=== PATIENT | female | born 1940 | race Caucasian/White ===

== ENCOUNTER 2020-05-10 16:47 | Inpatient (IN) | payer MEDICARE ==
[2020-05-10] MEDS ORDERED: DEXAMETHASONE SOD PHOSPHATE 10 MG/ML 1 ML VIAL IV STA (17:12)
[2020-05-10] MEDS ORDERED: ACETAMINOPHEN TAB 325 MG TAB PO STA (17:12)
[2020-05-10] MEDS ORDERED: IPRATROPIUM-ALBUTEROL 3 ML NEB INHALATION STA ×2 (17:12→17:54)
--- NOTE | 2020-05-10 17:22 | ED ---
SOB HPI - General Chief Complaint: Shortness of Breath Stated Complaint: Cough/chills/SOB/Dizzy Time Seen by Provider: 05/10/20 16:59 Source: patient Mode of arrival: wheelchair Limitations: no limitations - History of Present Illness Initial Comments: 80-year-old female patient presents to the emergency department today for evaluation of cough, shortness of breath, fever. Patient states that she started getting sick on Thanksgiving about 7 days ago. States that she has had clear sputum production. States her cough is worsening and she is feeling more short of breath today. Denies any chest pain. States she has had several episodes of diarrhea denies any nausea or vomiting. States she has been taking cough syrup. States that she does have a history of COPD and does do breathing treatments but they're making her feel dizzy today. Patient denies any recent rash, abdominal pain, back pain, numbness, tingling, dizziness, weakness, hematuria, dysuria, urinary urgency, urinary frequency, headache, visual changes, or any other complaints. - Related Data Home Medications Medication Instructions Recorded Confirmed Furosemide [Lasix] 40 mg PO DAILY 11/30/15 05/10/20 Lansoprazole 30 mg PO DAILY 11/30/15 05/10/20 Potassium Chloride [Klor-Con 20] 20 meq PO BID 11/30/15 05/10/20 traMADol HCL/ACETAMINOPHEN 1 tab PO QAM 11/30/15 05/10/20 [Ultracet 37.5-325] Aspirin [Adult Low Dose Aspirin EC] 81 mg PO DAILY 05/10/20 05/10/20 Cholecalciferol [Vitamin D3 (25 1,000 unit PO DAILY 05/10/20 05/10/20 Mcg = 1000 Iu)] Meloxicam [Mobic] 7.5 mg PO DAILY 05/10/20 05/10/20 Metoprolol Succinate [Toprol XL] 75 mg PO DAILY 05/10/20 05/10/20 Multivitamins, Thera [Multivitamin 1 tab PO DAILY 05/10/20 05/10/20 (formulary)] traMADol-ACETAMINOP 37.5-325MG 0.5 mg PO HS 05/10/20 05/10/20 [Ultracet] Allergies Allergy/AdvReac Type Severity Reaction Status Date / Time KAREN Inhibitors Allergy Unknown Verified 05/10/20 17:45 Penicillins Allergy Rash/Hives Verified 05/10/20 17:45 Sulfa (Sulfonamide Allergy Rash/Hives Verified 05/10/20 17:45 Antibiotics) Review of Systems ROS Statement: Those systems with pertinent positive or pertinent negative responses have been documented in the HPI. ROS Other: All systems not noted in ROS Statement are negative. Past Medical History Past Medical History: Atrial Fibrillation, Hypertension, Sleep Apnea/CPAP/BIPAP Additional Past Medical History / Comment(s): Guillian [place] AFTER 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 Past Anesthesia/Blood Transfusion Reactions: No Reported Reaction Past Psychological History: Anxiety Smoking Status: Former smoker Past Alcohol Use History: None Reported Past Drug Use History: None Reported - Past Family History Mother Family Medical History: Dementia Father Family Medical History: Myocardial Infarction ([place]) General Exam Limitations: no limitations General appearance: alert, in no apparent distress, other (Physical well- developed, well-nourished elderly female patient in mild respiratory distress. Vital signs upon presentation are temperature 100.7F oral, pulse 62, respirations 23, blood pressure 109/60, pulse ox 94% on room air.) ENT exam: Present: normal exam, normal oropharynx, mucous membranes moist Neck exam: Present: normal inspection. Absent: tenderness, meningismus, lymphadenopathy Respiratory exam: Present: respiratory distress. Absent: normal lung sounds bilaterally, wheezes, rales, rhonchi, stridor Cardiovascular Exam: Present: regular rate, normal rhythm, normal heart sounds. Absent: systolic murmur, diastolic murmur, rubs, gallop, clicks GI/Abdominal exam: Present: soft, normal bowel sounds. Absent: distended, tenderness, guarding, rebound, rigid Neurological exam: Present: alert, oriented X3, CN II-XII intact Psychiatric exam: Present: normal affect, normal mood Skin exam: Present: warm, dry, intact, normal color. Absent: rash Course Vital Signs 05/10/20 05/10/20 05/10/20 16:51 17:10 18:38 Temperature 100.7 F H 98.9 F Pulse Rate 62 91 Respiratory 23 20 Rate Blood Pressure 109/60 O2 Sat by Pulse 94 L 97 95 Oximetry 05/10/20 20:00 Temperature Pulse Rate 70 Respiratory 18 Rate Blood Pressure 124/78 O2 Sat by Pulse 96 Oximetry Medical Decision Making - Medical Decision Making 80-year-old female patient presents to the emergency department today for evaluation of cough, shortness of breath, and weakness that started on Thanksgiving. Physical examination did reveal mild wheezing noted in the history lung shi. Labs reviewed and did reveal decreased white blood cell count at 3.4, low lymphocytes at 0.5, d-dimer 1.03, sodium 130. Lactic acid is negative. CRP is 38. Urinalysis shows a cloudy appearance with 1+ protein, 1+ glucose, small leukocyte esterase, 12 squamous epithelial cells, rare bacteria. She did test positive for COVID-19. Patient did have decreased oxygen saturatio ns between 90-94% on arrival. She did have improvement of symptoms with administration of oxygen. We will admit to the hospital for IV dexamethasone and further monitoring. Patient is agreeable to this plan. - Lab Data Result diagrams: 05/10/20 17:32 05/10/20 17:32 Lab Results 05/10/20 05/10/20 05/10/20 Range/Units 17:32 17:32 17:32 WBC 3.4 L (3.8-10.6) k/uL RBC 4.80 (3.80-5.40) m/uL Hgb 15.2 (11.4-16.0) gm/dL Hct 42.8 (34.0-46.0) % MCV 89.3 (80.0-100.0) fL MCH 31.8 (25.0-35.0) pg MCHC 35.6 (31.0-37.0) g/dL RDW 13.3 (11.5-15.5) % Plt Count 169 (150-450) k/uL MPV 6.8 Neutrophils % 75 % Lymphocytes % 16 % Monocytes % 6 % Eosinophils % 1 % Basophils % 1 % Neutrophils # 2.5 (1.3-7.7) k/uL Lymphocytes # 0.5 L (1.0-4.8) k/uL Monocytes # 0.2 (0-1.0) k/uL Eosinophils # 0.0 (0-0.7) k/uL Basophils # 0.1 (0-0.2) k/uL PT 10.2 (9.0-12.0) sec INR 1.0 (<1.2) APTT 25.2 (22.0-30.0) sec D-Dimer (<0.60) mg/L FEU Sodium 130 L (137-145) mmol/L Potassium 4.4 (3.5-5.1) mmol/L Chloride 99 (98-107) mmol/L Carbon Dioxide 23 (22-30) mmol/L Anion Gap 8 mmol/L BUN 12 (7-17) mg/dL Creatinine 0.59 (0.52-1.04) mg/dL Est GFR (CKD-EPI)AfAm >90 (>60 ml/min/1.73 sqM) Est GFR (CKD-EPI)NonAf 86 (>60 ml/min/1.73 sqM) Glucose 112 H (74-99) mg/dL Plasma Lactic Acid [place] (0.7-2.0) mmol/L Calcium 9.3 (8.4-10.2) mg/dL Magnesium 1.7 (1.6-2.3) mg/dL Total Bilirubin 0.9 (0.2-1.3) mg/dL AST 47 H (14-36) U/L ALT 23 (4-34) U/L Alkaline Phosphatase 60 (38-126) U/L C-Reactive Protein (<10.0) mg/L Total Protein 7.1 (6.3-8.2) g/dL Albumin 4.1 (3.5-5.0) g/dL Urine Color Urine Appearance (Clear) Urine pH (5.0-8.0) Ur Specific [place] (1.001-1.035) Urine Protein (Negative) Urine Glucose (UA) (Negative) Urine Ketones (Negative) Urine Blood (Negative) Urine Nitrite (Negative) Urine Bilirubin (Negative) Urine Urobilinogen (<2.0) mg/dL Ur Leukocyte Esterase (Negative) Urine RBC (0-5) /hpf Urine WBC (0-5) /hpf Ur Squamous Epith Cells (0-4) /hpf Urine Bacteria (None) /hpf Hyaline Casts (0-2) /lpf Urine Mucus (None) /hpf Coronavirus (PCR) (Not Detectd) 05/10/20 05/10/20 05/10/20 Range/Units 17:32 17:32 18:43 WBC (3.8-10.6) k/uL RBC (3.80-5.40) m/uL Hgb (11.4-16.0) gm/dL Hct (34.0-46.0) % MCV (80.0-100.0) fL MCH (25.0-35.0) pg MCHC (31.0-37.0) g/dL RDW (11.5-15.5) % Plt Count (150-450) k/uL MPV Neutrophils % % Lymphocytes % % Monocytes % % Eosinophils % % Basophils % % Neutrophils # (1.3-7.7) k/uL Lymphocytes # (1.0-4.8) k/uL Monocytes # (0-1.0) k/uL Eosinophils # (0-0.7) k/uL Basophils # (0-0.2) k/uL PT (9.0-12.0) sec INR (<1.2) APTT (22.0-30.0) sec D-Dimer (<0.60) mg/L FEU Sodium (137-145) mmol/L Potassium (3.5-5.1) mmol/L Chloride (98-107) mmol/L Carbon Dioxide (22-30) mmol/L Anion Gap mmol/L BUN (7-17) mg/dL Creatinine (0.52-1.04) mg/dL Est GFR (CKD-EPI)AfAm (>60 ml/min/1.73 sqM) Est GFR (CKD-EPI)NonAf (>60 ml/min/1.73 sqM) Glucose (74-99) mg/dL Plasma Lactic Acid [place] 1.1 (0.7-2.0) mmol/L Calcium (8.4-10.2) mg/dL Magnesium (1.6-2.3) mg/dL Total Bilirubin (0.2-1.3) mg/dL AST (14-36) U/L ALT (4-34) U/L Alkaline Phosphatase (38-126) U/L C-Reactive Protein 38.5 H (<10.0) mg/L Total Protein (6.3-8.2) g/dL Albumin (3.5-5.0) g/dL Urine Color Yellow Urine Appearance Cloudy H (Clear) Urine pH 6.5 (5.0-8.0) Ur Specific [place] 1.022 (1.001-1.035) Urine Protein 1+ H (Negative) Urine Glucose (UA) Negative (Negative) Urine Ketones 1+ H (Negative) Urine Blood Negative (Negative) Urine Nitrite Negative (Negative) Urine Bilirubin Negative (Negative) Urine Urobilinogen <2.0 (<2.0) mg/dL Ur Leukocyte Esterase Small H (Negative) Urine RBC 3 (0-5) /hpf Urine WBC 5 (0-5) /hpf Ur Squamous Epith Cells 12 H (0-4) /hpf Urine Bacteria Rare H (None) /hpf Hyaline Casts 10 H (0-2) /lpf Urine Mucus Few H (None) /hpf Coronavirus (PCR) (Not Detectd) 05/10/20 05/10/20 Range/Units 18:43 20:18 WBC (3.8-10.6) k/uL RBC (3.80-5.40) m/uL Hgb (11.4-16.0) gm/dL Hct (34.0-46.0) % MCV (80.0-100.0) fL MCH (25.0-35.0) pg MCHC (31.0-37.0) g/dL RDW (11.5-15.5) % Plt Count (150-450) k/uL MPV Neutrophils % % Lymphocytes % % Monocytes % % Eosinophils % % Basophils % % Neutrophils # (1.3-7.7) k/uL Lymphocytes # (1.0-4.8) k/uL Monocytes # (0-1.0) k/uL Eosinophils # (0-0.7) k/uL Basophils # (0-0.2) k/uL PT (9.0-12.0) sec INR (<1.2) APTT (22.0-30.0) sec D-Dimer 1.03 H (<0.60) mg/L FEU Sodium (137-145) mmol/L Potassium (3.5-5.1) mmol/L Chloride (98-107) mmol/L Carbon Dioxide (22-30) mmol/L Anion Gap mmol/L BUN (7-17) mg/dL Creatinine (0.52-1.04) mg/dL Est GFR (CKD-EPI)AfAm (>60 ml/min/1.73 sqM) Est GFR (CKD-EPI)NonAf (>60 ml/min/1.73 sqM) Glucose (74-99) mg/dL Plasma Lactic Acid [place] (0.7-2.0) mmol/L Calcium (8.4-10.2) mg/dL Magnesium (1.6-2.3) mg/dL Total Bilirubin (0.2-1.3) mg/dL AST (14-36) U/L ALT (4-34) U/L Alkaline Phosphatase (38-126) U/L C-Reactive Protein (<10.0) mg/L Total Protein (6.3-8.2) g/dL Albumin (3.5-5.0) g/dL Urine Color Urine Appearance (Clear) Urine pH (5.0-8.0) Ur Specific [place] (1.001-1.035) Urine Protein (Negative) Urine Glucose (UA) (Negative) Urine Ketones (Negative) Urine Blood (Negative) Urine Nitrite (Negative) Urine Bilirubin (Negative) Urine Urobilinogen (<2.0) mg/dL Ur Leukocyte Esterase (Negative) Urine RBC (0-5) /hpf Urine WBC (0-5) /hpf Ur Squamous Epith Cells (0-4) /hpf Urine Bacteria (None) /hpf Hyaline Casts (0-2) /lpf Urine Mucus (None) /hpf Coronavirus (PCR) Detected A (Not Detectd) - EKG Data -: EKG Interpreted by Me EKG Comments: EKG obtained at 1714 shows A. fib with ventricular rate of 80, QRS duration 86, QT 374, QTC 431. No evidence of ST elevation or depression. - Radiology Data Radiology results: report reviewed, image reviewed One view x-ray of the chest is obtained. Report reviewed in its entirety. Impression by Dr. Beverly shows increased pulmonary interstitial density compared to old exam. No obvious heart failure. Heart is increased lately compared to old exam Disposition Clinical Impression: COVID-19, Dyspnea Disposition: ADMITTED IP TO THIS [facility] Condition: Serious Referrals: Denisha Vale MD [Primary Care Provider] - 1-2 days Decision to Admit Reason: Admit from EC Decision Date: 05/10/20 Decision Time: 20:57
[2020-05-10] MEDS ORDERED: ALBUTEROL HFA INHALER INHALATION STA (17:55)
[2020-05-10 17:59] LABS: Basophils # (A) 0.1 k/uL (0-0.2); Basophils % (A) 1 %; Eosinophils % (A) 1 %; HCT 42.8 % (34.0-46.0); HGB 15.2 gm/dL (11.4-16.0); Lymphocytes # (A) 0.5 k/uL (1.0-4.8); Lymphocytes % (A) 16 %; MCH 31.8 pg (25.0-35.0); MCHC 35.6 g/dL (31.0-37.0); MCV 89.3 fL (80.0-100.0); Mean Platelet Volume 6.8; Monocytes # (A) 0.2 k/uL (0-1.0); Monocytes % (A) 6 %; Neutrophils # (A) 2.5 k/uL (1.3-7.7); Neutrophils % (A) 75 %; Platelet Count 169 k/uL (150-450); RDW 13.3 % (11.5-15.5); WBC 3.4 k/uL (3.8-10.6)
--- NOTE | 2020-05-10 18:09 | XR ---
EXAMINATION TYPE: XR chest 1V portable DATE OF EXAM: 05/10/2020 COMPARISON: 12/05/2015 heart is enlarged. There is no heart failure. There is coarsening of the interstitial markings at the mid and lower lung shi. There is left shoulder prosthesis. There is no pleural effusion. There ar e chest leads. IMPRESSION: Increased pulmonary interstitial density in the lower lobes compared to old exam. No obvious heart fa ilure. Heart is increased slightly compared to old exam.
[2020-05-10 18:14] LABS: ALT 23 U/L (4-34); AST 47 U/L (14-36); African American GFR (CKD) >90 (>60 ml/min/1.73 sqM); Albumin 4.1 g/dL (3.5-5.0); Alkaline Phosphatase 60 U/L (38-126); Anion Gap 8 mmol/L; Blood Urea Nitrogen 12 mg/dL (7-17); Calcium 9.3 mg/dL (8.4-10.2); Carbon Dioxide 23 mmol/L (22-30); Chloride 99 mmol/L (98-107); Glucose 112 mg/dL (74-99); Magnesium 1.7 mg/dL (1.6-2.3); Non-African American GFR(CKD) 86 (>60 ml/min/1.73 sqM); Potassium 4.4 mmol/L (3.5-5.1); Sodium 130 mmol/L (137-145); Total Bilirubin 0.9 mg/dL (0.2-1.3); Total Protein 7.1 g/dL (6.3-8.2)
[2020-05-10 18:21] LABS: Partial Thromboplastin Time 25.2 sec (22.0-30.0); Prothrombin Time 10.2 sec (9.0-12.0)
[2020-05-10 19:23] LABS: Appearance,Urine Cloudy (Clear); Bacteria,Urine Rare /hpf; Bilirubin,Urine Negative (Negative); Blood,Urine Negative (Negative); Color,Urine Yellow; Glucose,Urine (UA) Negative (Negative); Hyaline Casts,Urine 10 /lpf (0-2); Ketones,Urine 1+ (Negative); Leukocyte Esterase,Urine Small (Negative); Mucus,Urine Few /hpf; Nitrite,Urine Negative (Negative); PH, Urine 6.5 (5.0-8.0); Protein,Urine 1+ (Negative); RBC,Urine 3 /hpf (0-5); Specific Gravity,Urine 1.022 (1.001-1.035); Squamous Epithelial Cell,Urine 12 /hpf (0-4); Urobilinogen,Urine <2.0 mg/dL (<2.0); WBC,Urine 5 /hpf (0-5)
[2020-05-10] MEDS ORDERED: ACETAMINOPHEN TAB 325 MG TAB PO PRN (20:52)
[2020-05-10] MEDS ORDERED: NALOXONE 0.4 MG/ML 1 ML VIAL IV PRN (20:52)
[2020-05-10] MEDS ORDERED: ALBUTEROL HFA INHALER INHALATION PRN (20:56)
[2020-05-11 06:18] LABS: Ferritin 422.3 ng/mL (10.0-291.0)
[2020-05-11] MEDS: ENOXAPARIN 40 MG/0.4 ML SYRINGE SQ SCH (09:14)
[2020-05-11] MEDS: DEXAMETHASONE SOD PHOSPHATE 10 MG/ML 1 ML VIAL IV SCH (09:14)
[2020-05-11] MEDS: ALBUTEROL HFA INHALER INHALATION SCH ×3 (09:35→20:04)
--- NOTE | 2020-05-11 14:49 | P.HPIM ---
History of Present Illness H&P Date: 05/11/20 Opal Howard, is an 80-year-old female patient of Dr. Vale, who presented to [facility] emergency room, with a chief complaint of fever cough and shortness of breath patient stated that her symptoms started 7 days prior to presentation and has been worsening she was evaluated in the emergency room vital examination on presentation reveals a temperature of 100.7 pulse 62 respiration 23 blood pressure 109/60 pulse ox 94% on room air her white blood count was 3.4 hemoglobin 15.2 platelet count 169 sodium 1:30 glucose 112 ferritin 422 C-reactive protein 38.5 cough and 19 PCR was positive patient was started on IV Decadron and was admitted to medical floor pulmonary consultation was requested. Patient was seen and examined on the medical floor she is alert and oriented 3 in no distress she is still complaining of cough and shortness of breath she started having diarrhea today otherwise she denies any complaints there is no fever or chills today no headache or dizziness no chest pain no palpitation no nausea or vomiting no abdominal pain no burning with urination no frequency or urgency and no hematuria. Patient has a known history of hypertension, osteoarthritis, gastroesophageal reflux disease, underlying history of atrial fibrillation, underlying history of obstructive sleep apnea. Past Medical History Past Medical History: Atrial Fibrillation, Hypertension, Sleep Apnea/CPAP/BIPAP Additional Past Medical History / Comment(s): Guillian [place] AFTER 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 Past Anesthesia/Blood Transfusion Reactions: No Reported Reaction Past Psychological History: Anxiety Smoking Status: Former smoker Past Alcohol Use History: None Reported Past Drug Use History: None Reported - Past Family History Mother Family Medical History: Dementia Father Family Medical History: Myocardial Infarction ([place]) Medications and Allergies Home Medications Medication Instructions Recorded Confirmed Type Furosemide [Lasix] 40 mg PO DAILY 11/30/15 05/10/20 History Lansoprazole 30 mg PO DAILY 11/30/15 05/10/20 History Potassium Chloride [Klor-Con 20] 20 meq PO BID 11/30/15 05/10/20 History traMADol HCL/ACETAMINOPHEN 1 tab PO QAM 11/30/15 05/10/20 History [Ultracet 37.5-325] Aspirin [Adult Low Dose Aspirin EC] 81 mg PO DAILY 05/10/20 05/10/20 History Cholecalciferol [Vitamin D3 (25 1,000 unit PO DAILY 05/10/20 05/10/20 History Mcg = 1000 Iu)] Meloxicam [Mobic] 7.5 mg PO DAILY 05/10/20 05/10/20 History Metoprolol Succinate [Toprol XL] 75 mg PO DAILY 05/10/20 05/10/20 History Multivitamins, Thera [Multivitamin 1 tab PO DAILY 05/10/20 05/10/20 History (formulary)] traMADol-ACETAMINOP 37.5-325MG 0.5 mg PO HS 05/10/20 05/10/20 History [Ultracet] Allergies Allergy/AdvReac Type Severity Reaction Status Date / Time KAREN Inhibitors Allergy Unknown Verified 05/10/20 17:45 Penicillins Allergy Rash/Hives Verified 05/10/20 17:45 Sulfa (Sulfonamide Allergy Rash/Hives Verified 05/10/20 17:45 Antibiotics) Physical Exam Vitals: Vital Signs Temp Pulse Resp BP Pulse Ox 05/11/20 08:26 97.8 F 68 18 148/85 92 L 05/11/20 00:00 78 16 116/53 95 05/10/20 23:34 72 21 96 05/10/20 20:00 70 18 124/78 96 05/10/20 18:38 98.9 F 91 20 95 05/10/20 17:10 97 05/10/20 16:51 100.7 F H 62 23 109/60 94 L Intake and Output 05/10/20 05/11/20 05/11/20 22:59 06:59 14:59 Output Total 400 Balance -400 Output: Urine 400 Other: Weight 90.718 kg In general patient is alert and oriented 3 in no apparent distress HEENT head normocephalic and atraumatic Neck is supple no JVD no goiter no lymphadenopathy Chest exam reveals fine crackles in both lung shi no wheezing Cardiac exam reveals regular heart sounds S1 and S2 no gallops no murmurs Abdomen is soft nontender no organomegaly with normal bowel sounds Extremity exam reveals minimal edema no cyanosis or clubbing Neurological examination reveals no gross focal neurological deficit Results CBC & Chem 7: 05/10/20 17:32 05/10/20 17:32 Labs: Abnormal Lab Results - Last 24 Hours (Table) 05/10/20 05/10/20 05/10/20 Range/Units 17:32 17:32 17:32 WBC 3.4 L (3.8-10.6) k/uL Lymphocytes # 0.5 L (1.0-4.8) k/uL D-Dimer (<0.60) mg/L FEU Sodium 130 L (137-145) mmol/L Glucose 112 H (74-99) mg/dL Ferritin 422.3 H (10.0-291.0) ng/mL AST 47 H (14-36) U/L C-Reactive Protein 38.5 H (<10.0) mg/L Urine Appearance (Clear) Urine Protein (Negative) Urine Ketones (Negative) Ur Leukocyte Esterase (Negative) Ur Squamous Epith Cells (0-4) /hpf Urine Bacteria (None) /hpf Hyaline Casts (0-2) /lpf Urine Mucus (None) /hpf Coronavirus (PCR) (Not Detectd) 05/10/20 05/10/20 05/10/20 Range/Units 18:43 18:43 20:18 WBC (3.8-10.6) k/uL Lymphocytes # (1.0-4.8) k/uL D-Dimer 1.03 H (<0.60) mg/L FEU Sodium (137-145) mmol/L Glucose (74-99) mg/dL Ferritin (10.0-291.0) ng/mL AST (14-36) U/L C-Reactive Protein (<10.0) mg/L Urine Appearance Cloudy H (Clear) Urine Protein 1+ H (Negative) Urine Ketones 1+ H (Negative) Ur Leukocyte Esterase Small H (Negative) Ur Squamous Epith Cells 12 H (0-4) /hpf Urine Bacteria Rare H (None) /hpf Hyaline Casts 10 H (0-2) /lpf Urine Mucus Few H (None) /hpf Coronavirus (PCR) Detected A (Not Detectd) Assessment and Plan Plan: 1. Covid 19 infection with pneumonia 2. Underlying history of hypertension Underlying history of hyperlipidemia Underlying history of osteoarthritis Underlying history of obstructive sleep apnea Underlying history of atrial fibrillation, patient was not maintained on anticoagulation at home, will try to obtain old records in that regard. Underlying history of gastroesophageal reflux disease At this time patient is admitted to medical floor She is started on IV dexamethasone, and vitamin C Pulmonary consultation requested Will follow closely
[2020-05-11] MEDS: METOPROLOL SUCCINATE (ER) 25 MG TAB.ER.24H PO SCH (15:00)
[2020-05-11] MEDS: PANTOPRAZOLE 40 MG TABLET PO SCH (15:00)
[2020-05-11] MEDS: ASPIRIN 81 MG PO SCH (15:00)
[2020-05-11] MEDS: POTASSIUM CHLORIDE ER 20 MEQ TAB.ER PO SCH ×2 (15:00→20:58)
[2020-05-11] MEDS: MULTIVITAMINS, THERA 1 EACH TAB PO SCH (15:00)
[2020-05-11] MEDS: CHOLECALCIFEROL 1,000 UNIT TAB PO SCH (15:00)
[2020-05-11] MEDS: FUROSEMIDE 40 MG TAB PO SCH (15:01)
[2020-05-11] MEDS: traMADol-ACETAMINOP 37.5-325MG 1 EACH TAB PO SCH ×2 (15:01→20:58)
[2020-05-11] MEDS: ASCORBIC ACID 500 MG TAB PO SCH (15:42)
[2020-05-11] MEDS ORDERED: REMDESIVIR 200 MG in SODIUM CHLORIDE 0.9% 250 ML IVPB ONE (16:30)
--- NOTE | 2020-05-11 16:52 | P.CNPUL ---
History of Present Illness Consult date: 05/11/20 Requesting physician: Lory Ferguson Reason for consult: dyspnea, cough Chief complaint: Dyspnea, cough, fever History of present illness: 80-year-old white female patient of Dr. Vale who presented to the emergency department at [facility] for evaluation of fever, cough, and shortness of breath with onset of symptoms 7 days ago. Her symptoms are worsening, continues to be febrile, her cough is productive of clear sputum. Denied any chest pain, she has had several episodes of diarrhea, but no nausea or vomiting, she has been taking cough syrup at home. She does have history of COPD and she is on breathing treatments at home. She feels the breathing treatments are making her dizzy today. Her chest x-ray showed increased pulmonary interstitial density in the lower lobes, and increased heart size compared to previous exam from 2016. Lab work showed leukopenia with blood blood cell count of 3.4, hemoglobin of 15.2, lymphopenia with lymphocytes, 0.5, d-dimer of 1.03, sodium was 1:30, the rest of electrolytes and renal profile were within normal limits, plasma lactic acid was 1.1, ferritin level was 422, AST was 47, ALT was 23, alkaline phosphatase was 60, CRP was 38.5, pro- calcitonin level was negative at 0.06, urinalysis showed small amount of leuks, rare bacteria, no definite sign of infection. Patient is On presentation was 100.7F, room air pulse ox was 86%, hemodynamically she is stable, she was started on Decadron, vitamin C supplements, Lovenox for anticoagulation, and we will go ahead and add Remdesivir treatment. Review of Systems All systems: negative Constitutional: Denies chills, Denies fever Eyes: denies blurred vision, denies pain Ears, nose, mouth and throat: Denies headache, Denies sore throat Cardiovascular: Denies chest pain, Denies shortness of breath Respiratory: Reports cough with sputum, Reports dyspnea, Denies cough Gastrointestinal: Denies abdominal pain, Denies diarrhea, Denies nausea, Denies vomiting Genitourinary: Denies dysuria, Denies hematuria Musculoskeletal: Denies myalgias Integumentary: Denies pruritus, Denies rash Neurological: Denies numbness, Denies weakness Psychiatric: Denies anxiety, Denies depression Endocrine: Denies fatigue, Denies weight change Past Medical History Past Medical History: Atrial Fibrillation, Hypertension, Sleep Apnea/CPAP/BIPAP Additional Past Medical History / Comment(s): Guillian Mcintosh AFTER 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 Past Anesthesia/Blood Transfusion Reactions: No Reported Reaction Past Psychological History: Anxiety Smoking Status: Former smoker Past Alcohol Use History: None Reported Past Drug Use History: None Reported - Past Family History Mother Family Medical History: Dementia Father Family Medical History: Myocardial Infarction ([place]) Additional Family Medical History / Comment(s): Father of a [place] at the age of 87yrs. Medications and Allergies Home Medications Medication Instructions Recorded Confirmed Type Furosemide [Lasix] 40 mg PO DAILY 11/30/15 05/10/20 History Lansoprazole 30 mg PO DAILY 11/30/15 05/10/20 History Potassium Chloride [Klor-Con 20] 20 meq PO BID 11/30/15 05/10/20 History traMADol HCL/ACETAMINOPHEN 1 tab PO QAM 11/30/15 05/10/20 History [Ultracet 37.5-325] Aspirin [Adult Low Dose Aspirin EC] 81 mg PO DAILY 05/10/20 05/10/20 History Cholecalciferol [Vitamin D3 (25 1,000 unit PO DAILY 05/10/20 05/10/20 History Mcg = 1000 Iu)] Meloxicam [Mobic] 7.5 mg PO DAILY 05/10/20 05/10/20 History Metoprolol Succinate [Toprol XL] 75 mg PO DAILY 05/10/20 05/10/20 History Multivitamins, Thera [Multivitamin 1 tab PO DAILY 05/10/20 05/10/20 History (formulary)] traMADol-ACETAMINOP 37.5-325MG 0.5 mg PO HS 05/10/20 05/10/20 History [Ultracet] Allergies Allergy/AdvReac Type Severity Reaction Status Date / Time KAREN Inhibitors Allergy Unknown Verified 05/10/20 17:45 Penicillins Allergy Rash/Hives Verified 05/10/20 17:45 Sulfa (Sulfonamide Allergy Rash/Hives Verified 05/10/20 17:45 Antibiotics) Physical Exam Vitals: Vital Signs Temp Pulse Pulse Pulse Resp BP BP 05/11/20 14:00 97.6 F 77 22 113/76 05/11/20 12:29 97.8 F 61 18 135/57 05/11/20 08:26 97.8 F 68 18 148/85 05/11/20 00:00 78 16 116/53 05/10/20 23:34 72 21 05/10/20 20:00 70 18 124/78 05/10/20 18:38 98.9 F 91 20 05/10/20 17:10 05/10/20 16:51 100.7 F H 62 23 109/60 Pulse Ox 05/11/20 14:00 22 L 05/11/20 12:29 86 L 05/11/20 08:26 92 L 05/11/20 00:00 95 05/10/20 23:34 96 05/10/20 20:00 96 05/10/20 18:38 95 05/10/20 17:10 97 05/10/20 16:51 94 L Intake and Output 05/11/20 05/11/20 05/11/20 06:59 14:59 22:59 Output Total 400 Balance -400 Output: Urine 400 Other: # Voids 1 # Bowel Movements 1 Weight 90.718 kg GENERAL EXAM: Alert, very pleasant, 80-year-old white female, on 2 L of oxygen with a pulse ox of 92%, room air pulse ox was 86%,, comfortable in no apparent distress. HEAD: Normocephalic/atraumatic. EYES: Normal reaction of pupils, equal size. Conjunctiva pink, sclera white. NOSE: Clear with pink turbinates. THROAT: No erythema or exudates. NECK: No masses, no JVD, no thyroid enlargement, no adenopathy. CHEST: No chest wall deformity. Symmetrical expansion. LUNGS: Equal air entry with no crackles, wheeze, rhonchi or dullness. CVS: Regular rate and rhythm, normal S1 and S2, no gallops, no murmurs, no rubs ABDOMEN: Soft, nontender. No hepatosplenomegaly, normal bowel sounds, no guarding or rigidity. EXTREMITIES: No clubbing, no edema, no cyanosis, 2+ pulses and upper and lower extremities. MUSCULOSKELETAL: Muscle strength and tone normal. SPINE: No scoliosis or deformity SKIN: No rashes CENTRAL NERVOUS SYSTEM: Alert and oriented -3. No focal deficits, tone is normal in all 4 extremities. PSYCHIATRIC: Alert and oriented -3. Appropriate affect. Intact judgment and insight. Results - Laboratory Findings CBC and BMP: 05/10/20 17:32 05/10/20 17:32 PT/INR, D-dimer PT 10.2 sec (9.0-12.0) 05/10/20 17:32 INR 1.0 (<1.2) 05/10/20 17:32 D-Dimer 1.03 mg/L FEU (<0.60) H 05/10/20 20:18 Abnormal lab findings: Abnormal Labs 05/10/20 05/10/20 05/10/20 17:32 17:32 17:32 WBC 3.4 L Lymphocytes # 0.5 L D-Dimer Sodium 130 L Glucose 112 H Ferritin 422.3 H AST 47 H C-Reactive Protein 38.5 H Urine Appearance Urine Protein Urine Ketones Ur Leukocyte Esterase Ur Squamous Epith Cells Urine Bacteria Hyaline Casts Urine Mucus Coronavirus (PCR) 05/10/20 05/10/20 05/10/20 18:43 18:43 20:18 WBC Lymphocytes # D-Dimer 1.03 H Sodium Glucose Ferritin AST C-Reactive Protein Urine Appearance Cloudy H Urine Protein 1+ H Urine Ketones 1+ H Ur Leukocyte Esterase Small H Ur Squamous Epith Cells 12 H Urine Bacteria Rare H Hyaline Casts 10 H Urine Mucus Few H Coronavirus (PCR) Detected A - Diagnostic Findings Chest x-ray: report reviewed, image reviewed Additional studies: EKG reviewed in atrial fibrillation Assessment and Plan Plan: Assessment: #1. Acute hypoxic rest or a failure related to COVID 19 pneumonitis, with onset of symptoms 7 days ago, started on Remdesivir today on 05/11/2020 #2. Cough, fever, shortness of breath, diarrhea related to the above #3. Chronic atrial fibrillation, not on chronic anticoagulation #4. Sleep apnea on CPAP therapy #5. Former smoker #6. Anxiety #7. Osteoarthritis Plan: Continue current medical treatment, continue Decadron, continue anticoagulation, we will add Remdesivir. To clarify why the patient is not on any chronic anticoagulation. We'll add Remdesivir, continue supplements, and vitamins. We'll continue to follow I performed a history & physical examination of the patient and discussed their management with my nurse practitioner, Laly Reilly. I reviewed the nurse practitioner's note and agree with the documented findings and plan of care. Lung sounds are positive for diminished breath sounds. The findings and the impression was discussed with the patient. I attest to the documentation by the nurse practitioner. Time with Patient: Greater than 30
[2020-05-11] MEDS: MELATONIN 5 MG TABLET PO SCH (20:55)
--- NOTE | 2020-05-12 00:02 | CONS ---
CONSULTATION DATE OF SERVICE: 05/11/2020 REASON FOR FOLLOWUP: Acute COVID-19 pneumonia. HISTORY OF PRESENT ILLNESS: The patient is an 80-year-old female presenting to the ER at [facility] yesterday evening for evaluation of increasing shortness of breath and cough. The patient's symptoms have been going on since then, about from presenting to the hospital. Prior to that a week or 10 days before her symptoms started, the patient did attend her brother's . Patient started having weakness. No energy. She started having a cough which has been moderate in intensity, not bringing up any sputum. Has felt nauseated, vomited and did have multiple loose stools. Subsequently started having increasing shortness of breath that prompted her to the hospital. On arrival to the ER, the patient did have fever of 100.7 degrees Fahrenheit. The patient was saturating 86% at one point on room air, requiring supplemental oxygen. The patient did have a known leukopenia as well as lymphopenia. D-dimer was 1.03. Ferritin 422, AST 47. CRP 38.5. Urine was mildly positive. Covid PCR came back positive. Blood culture has been negative. The patient did have a chest x-ray with increased pulmonary interstitial density in the lower lobes exam. Infectious Disease was consulted for further management. REVIEW OF SYSTEMS: Positive points have been mentioned in HPI. Rest of systems are negative. PAST MEDICAL HISTORY: Atrial fibrillation, hypertension, sleep apnea, , hiatal hernia. PAST SURGICAL HISTORY: Back surgery, bilateral knee replacement, right carpal tunnel. SOCIAL HISTORY: Remote history of smoking. No drinking or drug use. FAMILY HISTORY: Mother history of dementia. Father history of [place]. ALLERGIES: PENICILLIN, SULFA, KAREN INHIBITOR. MEDICATIONS: Include the patient is currently on Tylenol, Ventolin, vitamin C, aspirin, vitamin D3, Decadron 6 mg IV, Lovenox Lasix, melatonin, Mobic, Toprol-XL, Narcan, Protonix, Remdesivir and zinc. PHYSICAL EXAMINATION: Her blood pressure is 131/73 with a pulse of 73, temperature 97.7. She is 93% on 2 L nasal cannula. General description is an elderly female lying in bed in no distress. HEENT examination: No pallor or scleral icterus. Oral mucous membranes dry. NECK: Trachea central. No thyromegaly. Lungs unlabored breathing. Few coarse crackles at bases. No wheeze. HEART: S1, S2. Regular rate and rhythm. ABDOMEN: Soft. No tenderness. EXTREMITIES: No edema of the feet. SKIN examination: No rash or mass palpable. NEUROLOGICAL: Patient is awake, alert, oriented times three. Mood and affect normal. LABS: Hemoglobin 15, white count 3.4, , D-dimer is 1.03, BUN of 10, creatinine 0.59. DIAGNOSTIC IMPRESSION AND PLAN: Patient admitted to the hospital with increasing shortness of breath and cough in this patient who did have a low-grade fever, hypoxemia with evidence of leukopenia, elevated D-dimer and inflammatory marker, likely secondary to acute COVID-19 pneumonia in this patient who did have evidence of hypoxemia and seven days to qualify for Remdesivir therapy. PLAN: 1. Patient to continue with Remdesivir protocol 200 mg day 1 followed by 100 mg daily for 4 days. 2. Lovenox. Dexamethasone. Zinc sulfate. 3. solution. 4. Respiratory support. 5. We will follow on clinical condition and culture to further adjust medication if needed. Thank you for this consultation. Will follow this patient along with you. MMODL / IJN: [id number] /
[2020-05-12 06:31] LABS: Basophils % (A) 0 %; Eosinophils % (A) 0 %; HCT 43.5 % (34.0-46.0); HGB 14.9 gm/dL (11.4-16.0); Lymphocytes # (A) 0.6 k/uL (1.0-4.8); Lymphocytes % (A) 8 %; MCH 30.9 pg (25.0-35.0); MCHC 34.3 g/dL (31.0-37.0); MCV 90.1 fL (80.0-100.0); Mean Platelet Volume 6.9; Monocytes # (A) 0.3 k/uL (0-1.0); Monocytes % (A) 4 %; Neutrophils # (A) 6.4 k/uL (1.3-7.7); Neutrophils % (A) 86 %; Platelet Count 214 k/uL (150-450); RBC 4.83 m/uL (3.80-5.40); RDW 13.3 % (11.5-15.5); WBC 7.4 k/uL (3.8-10.6)
[2020-05-12] MEDS: FUROSEMIDE 40 MG TAB PO SCH ×2 (08:00→08:07)
[2020-05-12] MEDS: ZINC SULFATE 220 MG CAP PO SCH (08:00)
[2020-05-12] MEDS: ASCORBIC ACID 500 MG TAB PO SCH (08:00)
[2020-05-12] MEDS: DEXAMETHASONE SOD PHOSPHATE 10 MG/ML 1 ML VIAL IV SCH (08:00)
[2020-05-12] MEDS: MULTIVITAMINS, THERA 1 EACH TAB PO SCH (08:00)
[2020-05-12] MEDS: CHOLECALCIFEROL 1,000 UNIT TAB PO SCH (08:00)
[2020-05-12] MEDS: ASPIRIN 81 MG PO SCH (08:00)
[2020-05-12] MEDS: traMADol-ACETAMINOP 37.5-325MG 1 EACH TAB PO SCH ×2 (08:00→20:02)
[2020-05-12] MEDS: POTASSIUM CHLORIDE ER 20 MEQ TAB.ER PO SCH ×2 (08:00→20:02)
[2020-05-12] MEDS: ENOXAPARIN 40 MG/0.4 ML SYRINGE SQ SCH (08:01)
[2020-05-12] MEDS: MELOXICAM 7.5 MG TAB PO SCH (08:03)
[2020-05-12] MEDS: METOPROLOL SUCCINATE (ER) 25 MG TAB.ER.24H PO SCH (08:03)
[2020-05-12] MEDS: PANTOPRAZOLE 40 MG TABLET PO SCH (08:03)
[2020-05-12 09:12] LABS: African American GFR (CKD) 93.5 (60.0-200.0); Albumin/Globulin Ratio 1.9 (1.60-3.17); Anion Gap 10.6 mmol/L (4.00-12.00); BUN/Creat Ratio 24.29 Ratio (12.00-20.00); Calcium 9.3 mg/dL (8.7-10.3); Carbon Dioxide 25.4 mmol/L (21.6-31.8); Globulin 2.1 g/dL (1.6-3.3); Non-African American GFR(CKD) 80.7 (60.0-200.0); Total Bilirubin 0.6 mg/dL (0.2-1.2); Total Protein 6.1 g/dL (6.2-8.2)
[2020-05-12] MEDS: ALBUTEROL HFA INHALER INHALATION SCH ×4 (09:13→19:13)
[2020-05-12 10:21] VITALS: BMI 37.8
--- NOTE | 2020-05-12 12:20 | P.PN ---
Subjective Progress Note Date: 05/12/20 Opal Howard, is an 80-year-old female patient of Dr. Vale, who presented to [facility] emergency room, with a chief complaint of fever cough and shortness of breath patient stated that her symptoms started 7 days prior to presentation and has been worsening she was evaluated in the emergency room vital examination on presentation reveals a temperature of 100.7 pulse 62 respiration 23 blood pressure 109/60 pulse ox 94% on room air her white blood count was 3.4 hemoglobin 15.2 platelet count 169 sodium 1:30 glucose 112 ferritin 422 C-reactive protein 38.5 cough and 19 PCR was positive patient was started on IV Decadron and was admitted to medical floor pulmonary consultation was requested. Patient was seen and examined on the medical floor she is alert and oriented 3 in no distress she is still complaining of cough and shortness of breath she started having diarrhea today otherwise she denies any complaints there is no fever or chills today no headache or dizziness no chest pain no palpitation no nausea or vomiting no abdominal pain no burning with urination no frequency or urgency and no hematuria. Patient has a known history of hypertension, osteoarthritis, gastroesophageal reflux disease, underlying history of atrial fibrillation, underlying history of obstructive sleep apnea. Objective - Vital Signs Vital signs: Vital Signs Temp 97.8 F 05/12/20 09:48 Pulse 75 05/12/20 09:48 Resp 20 05/12/20 09:48 BP 147/80 05/12/20 09:48 Pulse Ox 95 05/12/20 09:48 Intake & Output 05/11/20 05/12/20 05/12/20 18:59 06:59 18:59 Weight 90.718 kg 90.718 kg Other: # Voids 2 1 # Bowel Movements 1 - Exam In general patient is alert and oriented 3 in no apparent distress HEENT head normocephalic and atraumatic Neck is supple no JVD no goiter no lymphadenopathy Chest exam reveals fine crackles in both lung shi no wheezing Cardiac exam reveals regular heart sounds S1 and S2 no gallops no murmurs Abdomen is soft nontender no organomegaly with normal bowel sounds Extremity exam reveals minimal edema no cyanosis or clubbing Neurological examination reveals no gross focal neurological deficit - Labs CBC & Chem 7: 05/12/20 05:54 05/12/20 05:54 Labs: Abnormal Lab Results - Last 24 Hours (Table) 05/12/20 05/12/20 Range/Units 05:54 05:54 Lymphocytes # 0.6 L (1.0-4.8) k/uL BUN/Creatinine Ratio 24.29 H (12.00-20.00) Ratio Glucose 112 H (70-110) mg/dL AST 37 H (13-35) U/L Total Protein 6.1 L (6.2-8.2) g/dL Microbiology - Last 24 Hours (Table) 05/10/20 20:37 Blood Culture - Preliminary Blood No Growth after 24 hours 05/10/20 17:32 Blood Culture - Preliminary Blood No Growth after 24 hours Assessment and Plan Plan: 1. Covid 19 infection with pneumonia 2. Underlying history of hypertension 3. Underlying history of hyperlipidemia 4. Underlying history of osteoarthritis 5. Underlying history of obstructive sleep apnea 6. Underlying history of atrial fibrillation, patient was not maintained on anticoagulation at home, will try to obtain old records in that regard. 7. Underlying history of gastroesophageal reflux disease At this time patient is admitted to medical floor She is started on IV dexamethasone, and vitamin C Pulmonary consultation requested, patient was evaluated by pulmonary and was started on Remdesevir Will follow closely
[2020-05-12] MEDS: REMDESIVIR 100 MG in SODIUM CHLORIDE 0.9% 250 ML IVPB SCH (15:42)
--- NOTE | 2020-05-12 15:44 | PN ---
PROGRESS NOTE This is a patient who was admitted on May 10. We saw her in consultation on May 11. She was admitted with a diagnosis of acute hypoxemic respiratory failure secondary to COVID-19 pneumonitis. She was started on Remdesivir yesterday, May 11. She came in with complaints of cough, fever, shortness of breath, and some GI issues. She does have a history of chronic atrial fibrillation, sleep apnea syndrome, anxiety, DJD, and she was a former smoker. She is feeling a bit better today. She is less short of breath. She is coughing a bit. Not producing any phlegm. There is no fever or chills. PHYSICAL EXAMINATION: VITAL SIGNS: Current vital signs include temperature 97.8, heart rate 64, respiratory rate 20. Blood pressure 138/67. Mean 90. 3 L saturation 96%. GENERAL: Appears in no acute distress. HEENT: Examination is grossly unremarkable. NECK: Supple. Full range of motion. No adenopathy. Neck veins are flat. CARDIOVASCULAR: Examination reveals regular rhythm and rate. Heart rate 64 beats per minute. S1, S2 normal. LUNGS: A few scattered rhonchi. No wheezes or crackles. ABDOMEN: Soft. Bowel sounds are heard. EXTREMITIES are intact. No cyanosis, clubbing, or edema. SKIN: Without rash. NEUROLOGIC: Examination is nonfocal. LABS: Reviewed. CBC is normal. D-dimer 1.03. Sodium, potassium chloride, CO2 all normal. Anion gap normal. BUN and creatinine were normal. The rest of the numbers look pretty good. Urine is potentially consistent with a urinary tract infection. COVID testing was positive. Microbiology is currently negative. Chest x-ray was reviewed. Chest x-ray from May 10 shows bilateral patchy opacities. CURRENT MEDICATIONS: Reviewed. The patient is on Tylenol, albuterol inhaler, vitamin C, aspirin, vitamin D3, Decadron, Lovenox, Lasix, melatonin, Mobic, metoprolol, multivitamins, Narcan, Protonix, potassium chloride, Remdesivir, Ultracef, and zinc. ASSESSMENT: 1. Acute hypoxemic respiratory failure, secondary to COVID-19 pneumonitis, with mild hypoxemic respiratory failure. The patient started on Remdesivir on May 11. 2. Cough, fever, shortness of breath, diarrhea, or related Covid 19 infection. 3. History of chronic atrial fibrillation. 4. Sleep apnea syndrome, maintained on CPAP. 5. Rule out urinary tract infection. 6. Former tobacco use. 7. Anxiety. 8. Osteoarthritis. PLAN: Currently, the patient is doing a bit better. We will continue to follow. The patient just started on Remdesivir yesterday. She has 5 days of therapy. No additional recommendations are made. We will continue to follow. Prognosis is guarded. MMODL / IJN: [id number] /
[2020-05-12] MEDS: MELATONIN 5 MG TABLET PO SCH (20:02)
--- NOTE | 2020-05-13 03:53 | PN ---
PROGRESS NOTE DATE OF SERVICE: 05/12/2020 REASON FOR FOLLOWUP: Acute COVID-19 pneumonia. INTERVAL HISTORY: Patient is currently afebrile. Patient is breathing slightly comfortably. Patient denies having any chest pain. She did have a cough, moderate, not bringing up any sputum. No nausea, no vomiting. No abdominal pain or further diarrhea. PHYSICAL EXAMINATION: Blood pressure 108/67, pulse of 57, temp 97.5. She is 93% on 3 L nasal cannula. The patient is an elderly female up in the bed in no distress. Respiratory system: Unlabored breathing with decreased intensity breath sounds. No wheeze. HEART: S1, S2. Regular rate and rhythm. ABDOMEN: Soft. No tenderness. LABS: Hemoglobin 14.9, white count 7.4, BUN of 17, creatinine 0.7. DIAGNOSTIC IMPRESSION AND PLAN: Patient with acute COVID-19 pneumonia in this patient currently on dexamethasone, Lovenox and Remdesivir, to continue with respiratory support and monitor clinical course closely. MMODL / IJN: [id number] /
[2020-05-13] MEDS: ALBUTEROL HFA INHALER INHALATION SCH ×4 (07:42→19:05)
[2020-05-13] MEDS: DEXAMETHASONE SOD PHOSPHATE 10 MG/ML 1 ML VIAL IV SCH (08:30)
[2020-05-13] MEDS: ENOXAPARIN 40 MG/0.4 ML SYRINGE SQ SCH (08:31)
[2020-05-13] MEDS: MELOXICAM 7.5 MG TAB PO SCH (08:31)
[2020-05-13] MEDS: POTASSIUM CHLORIDE ER 20 MEQ TAB.ER PO SCH ×2 (08:31→20:01)
[2020-05-13] MEDS: CHOLECALCIFEROL 1,000 UNIT TAB PO SCH (08:32)
[2020-05-13] MEDS: ZINC SULFATE 220 MG CAP PO SCH (08:32)
[2020-05-13] MEDS: ASPIRIN 81 MG PO SCH (08:32)
[2020-05-13] MEDS: traMADol-ACETAMINOP 37.5-325MG 1 EACH TAB PO SCH ×2 (08:32→20:01)
[2020-05-13] MEDS: PANTOPRAZOLE 40 MG TABLET PO SCH (08:33)
[2020-05-13] MEDS: METOPROLOL SUCCINATE (ER) 25 MG TAB.ER.24H PO SCH (08:33)
[2020-05-13] MEDS: FUROSEMIDE 40 MG TAB PO SCH (08:33)
[2020-05-13] MEDS: MULTIVITAMINS, THERA 1 EACH TAB PO SCH (08:33)
[2020-05-13] MEDS: ASCORBIC ACID 500 MG TAB PO SCH (08:34)
--- NOTE | 2020-05-13 15:15 | P.PN ---
Subjective Progress Note Date: 05/13/20 Opal Howard, is an 80-year-old female patient of Dr. Vale, who presented to [facility] emergency room, with a chief complaint of fever cough and shortness of breath patient stated that her symptoms started 7 days prior to presentation and has been worsening she was evaluated in the emergency room vital examination on presentation reveals a temperature of 100.7 pulse 62 respiration 23 blood pressure 109/60 pulse ox 94% on room air her white blood count was 3.4 hemoglobin 15.2 platelet count 169 sodium 1:30 glucose 112 ferritin 422 C-reactive protein 38.5 cough and 19 PCR was positive patient was started on IV Decadron and was admitted to medical floor pulmonary consultation was requested. Patient was seen and examined on the medical floor she is alert and oriented 3 in no distress she is still complaining of cough and shortness of breath she started having diarrhea today otherwise she denies any complaints there is no fever or chills today no headache or dizziness no chest pain no palpitation no nausea or vomiting no abdominal pain no burning with urination no frequency or urgency and no hematuria. Patient has a known history of hypertension, osteoarthritis, gastroesophageal reflux disease, underlying history of atrial fibrillation, underlying history of obstructive sleep apnea. On 05/13/2020 patient was seen and examined on the medical floor she is alert and oriented 3 in no apparent distress there is no fever or chills no headache or dizziness no chest pain she has occasional shortness of breath especially with any activity she has cough with dark sputum production there is no palpitation no nausea or vomiting no abdominal pain no diarrhea no blood in the stools no burning with urination no frequency or urgency and no hematuria Objective - Vital Signs Vital signs: Vital Signs Temp 97.9 F 05/13/20 10:21 Pulse 73 05/13/20 10:21 Resp 28 H 05/13/20 10:21 BP 133/80 05/13/20 10:21 Pulse Ox 93 L 05/13/20 10:21 Intake & Output 05/12/20 05/13/20 05/13/20 18:59 06:59 18:59 Weight 90.718 kg Other: Voiding Method Toilet # Voids 3 3 - Exam In general patient is alert and oriented 3 in no apparent distress HEENT head normocephalic and atraumatic Neck is supple no JVD no goiter no lymphadenopathy Chest exam reveals fine crackles in both lung shi no wheezing Cardiac exam reveals regular heart sounds S1 and S2 no gallops no murmurs Abdomen is soft nontender no organomegaly with normal bowel sounds Extremity exam reveals minimal edema no cyanosis or clubbing Neurological examination reveals no gross focal neurological deficit - Labs CBC & Chem 7: 05/12/20 05:54 05/12/20 05:54 Labs: Microbiology - Last 24 Hours (Table) 05/10/20 20:37 Blood Culture - Preliminary Blood No Growth after 48 hours 05/10/20 17:32 Blood Culture - Preliminary Blood No Growth after 48 hours Assessment and Plan Plan: 1. Covid 19 infection with pneumonia 2. Underlying history of hypertension 3. Underlying history of hyperlipidemia 4. Underlying history of osteoarthritis 5. Underlying history of obstructive sleep apnea 6. Underlying history of atrial fibrillation, patient was not maintained on anticoagulation at home, will try to obtain old records in that regard. 7. Underlying history of gastroesophageal reflux disease At this time patient is admitted to medical floor She is started on IV dexamethasone, and vitamin C Pulmonary consultation requested, patient was evaluated by pulmonary and was started on Remdesevir Will follow closely
[2020-05-13] MEDS: REMDESIVIR 100 MG in SODIUM CHLORIDE 0.9% 250 ML IVPB SCH (15:58)
--- NOTE | 2020-05-13 18:09 | PN ---
PROGRESS NOTE PULMONARY/CRITICAL CARE PROGRESS NOTE: DATE OF SERVICE: May 13, 2020 This is a patient who was admitted on May 10. We saw her in consultation on the . She was admitted with a diagnosis of acute hypoxemic respiratory failure secondary to COVID-19 pneumonitis. She was started on Remdesivir a couple days ago. She came in with complaints of cough, fever, shortness of breath, and some GI issues. She does have a history of chronic atrial fibrillation, sleep apnea syndrome, anxiety, DJD, and was a former smoker. Currently, she is feeling a bit better. She is still having issues with breathing and cough. She still feels like she has chest congestion. She is not producing any phlegm. She denies any GI issues today. PHYSICAL EXAMINATION: Current vital signs are reviewed. Temperature 97.7, heart rate 58, respiratory rate 18, blood pressure 134/71, mean 92, 3 L saturation 96%. Appears in no acute distress. HEENT: Examination is grossly unremarkable. NECK: Supple, full range of motion. No adenopathy. Neck veins are flat. CARDIOVASCULAR: Examination reveals regular rhythm and rate. S1, S2 normal. No S3, S4, or murmur. LUNGS: Reveal diffuse coarse rhonchi. Breath sounds are diminished. No wheezes or crackles. ABDOMEN: Soft. Bowel sounds are heard. EXTREMITIES are intact. No cyanosis, clubbing, or edema. SKIN: Without rash. NEUROLOGIC: Examination is brief but nonfocal. LABS: Reviewed. Nothing new from May 13. Microbiology is all negative including blood cultures. No recent chest x-ray. Previous chest x-ray on the shows diffuse lower lobe interstitial changes. A repeat chest x-ray will be ordered for the morning. CURRENT MEDICATIONS: Reviewed. She is on Tylenol, albuterol inhaler, vitamin C, aspirin, vitamin D3, Decadron, Lovenox, Lasix, melatonin, meloxicam, metoprolol, multivitamins, Narcan, Protonix, K-Dur, Remdesivir, Ultracef, and zinc. ASSESSMENT: 1. Acute hypoxemic respiratory failure secondary to COVID-19 pneumonitis with mild-to- moderate hypoxemic respiratory failure. The patient was started on Remdesivir on May 11. 2. Cough, fever, shortness of breath, diarrhea, all related to COVID-19 infection. 3. History of chronic atrial fibrillation. 4. Sleep apnea syndrome, maintained on CPAP. 5. Rule out urinary tract infection. 6. Former tobacco use. 7. Anxiety. 8. Degenerative joint disease/osteoarthritis. PLAN: Currently, the patient seems to be doing relatively well. I will repeat a chest x-ray in the morning. She is certainly not out of the mcmanus. Her breathing seems to be a bit more stable. Her GI issues have seemed to resolve. No additional recommendations are made. MMODL / IJN: [id number] /
[2020-05-13] MEDS: MELATONIN 5 MG TABLET PO SCH (20:01)
--- NOTE | 2020-05-13 22:43 | PN ---
PROGRESS NOTE DATE OF SERVICE: 05/13/2020 REASON FOR FOLLOWUP: COVID-19 pneumonia. INTERVAL HISTORY: Patient is currently afebrile. She is complaining of shortness of breath. Did have a cough this morning unable to cough up any sputum. No chest pain. No nausea, no vomiting. No abdominal pain or diarrhea. PHYSICAL EXAMINATION: Blood pressure 152/70 with a pulse of 58, temperature 97.6. She is 93% on 3 L nasal cannula. General description is an elderly female lying in bed in no distress. Respiratory system: Unlabored breathing, decreased breath sounds in the base, with no wheeze. Heart S1, S2. Regular rate and rhythm. ABDOMEN: Soft, no tenderness. LABS: Hemoglobin 14, white count 7.4. D. dimer is down to 1.03. DIAGNOSTIC IMPRESSION AND PLAN: Patient acute COVID-19 pneumonia in this patient currently covered with Lovenox, Remdesivir, zinc sulfate to continue along with respiratory support and monitor clinical course closely. MMODL / IJN: [id number] /
[2020-05-14 06:41] LABS: Basophils % (A) 1 %; Eosinophils % (A) 0 %; Lymphocytes # (A) 0.6 k/uL (1.0-4.8); Lymphocytes % (A) 12 %; MCH 31.6 pg (25.0-35.0); MCHC 34.9 g/dL (31.0-37.0); MCV 90.7 fL (80.0-100.0); Mean Platelet Volume 6.5; Monocytes # (A) 0.3 k/uL (0-1.0); Monocytes % (A) 6 %; Neutrophils % (A) 79 %; Platelet Count 234 k/uL (150-450); RBC 4.74 m/uL (3.80-5.40); RDW 13.4 % (11.5-15.5)
[2020-05-14] MEDS: DEXAMETHASONE SOD PHOSPHATE 10 MG/ML 1 ML VIAL IV SCH (08:13)
[2020-05-14] MEDS: METOPROLOL SUCCINATE (ER) 25 MG TAB.ER.24H PO SCH (08:13)
[2020-05-14] MEDS: ASCORBIC ACID 500 MG TAB PO SCH (08:13)
[2020-05-14] MEDS: ENOXAPARIN 40 MG/0.4 ML SYRINGE SQ SCH (08:13)
[2020-05-14] MEDS: FUROSEMIDE 40 MG TAB PO SCH (08:13)
[2020-05-14] MEDS: POTASSIUM CHLORIDE ER 20 MEQ TAB.ER PO SCH ×2 (08:14→21:13)
[2020-05-14] MEDS: traMADol-ACETAMINOP 37.5-325MG 1 EACH TAB PO SCH ×2 (08:14→21:12)
[2020-05-14] MEDS: MELOXICAM 7.5 MG TAB PO SCH (08:14)
[2020-05-14] MEDS: CHOLECALCIFEROL 1,000 UNIT TAB PO SCH (08:14)
[2020-05-14] MEDS: MULTIVITAMINS, THERA 1 EACH TAB PO SCH (08:14)
[2020-05-14] MEDS: ZINC SULFATE 220 MG CAP PO SCH (08:14)
[2020-05-14] MEDS: PANTOPRAZOLE 40 MG TABLET PO SCH (08:14)
[2020-05-14] MEDS: ASPIRIN 81 MG PO SCH (08:14)
[2020-05-14] MEDS: ALBUTEROL HFA INHALER INHALATION SCH ×4 (08:44→21:11)
[2020-05-14 09:19] LABS: African American GFR (CKD) 104.5 (60.0-200.0); Albumin 3.8 g/dL (3.80-4.90); Calcium 9.3 mg/dL (8.7-10.3); Globulin 1.9 g/dL (1.6-3.3); Non-African American GFR(CKD) 90.1 (60.0-200.0); Potassium 4.2 mmol/L (3.5-5.5); Total Bilirubin 0.7 mg/dL (0.3-1.2); Total Protein 5.7 g/dL (6.2-8.2)
--- NOTE | 2020-05-14 10:32 | P.PN ---
Subjective Progress Note Date: 05/14/20 78-year-old here patient with community related pneumonia and the patient is being seen in follow-up. The patient was treated with a combination of Decadron, Remdesivir and Lovenox. Currently she is ranging between 2 and 3 L of oxygen by nasal cannula with a pulse ox of 95%. She is afebrile. She has no specific complaints for now. Inflammatory markers are not much elevated. She is resting comfortably in bed. She is still coughing. She has a good appetite. Objective - Vital Signs Vital signs: Vital Signs Temp 97.6 F 05/14/20 10:13 Pulse 82 05/14/20 10:13 Resp 20 05/14/20 10:13 BP 162/81 05/14/20 10:13 Pulse Ox 95 05/14/20 10:13 Intake & Output 05/13/20 05/14/20 05/14/20 18:59 06:59 18:59 Other: Voiding Method Toilet # Voids 2 3 - Exam GENERAL EXAM: Alert, very pleasant, 80-year-old white female, on 2 L of oxygen with a pulse ox of 92%, room air pulse ox was 86%,, comfortable in no apparent distress. HEAD: Normocephalic/atraumatic. EYES: Normal reaction of pupils, equal size. Conjunctiva pink, sclera white. NOSE: Clear with pink turbinates. THROAT: No erythema or exudates. NECK: No masses, no JVD, no thyroid enlargement, no adenopathy. CHEST: No chest wall deformity. Symmetrical expansion. LUNGS: Equal air entry with no crackles, wheeze, rhonchi or dullness. CVS: Regular rate and rhythm, normal S1 and S2, no gallops, no murmurs, no rubs ABDOMEN: Soft, nontender. No hepatosplenomegaly, normal bowel sounds, no guarding or rigidity. EXTREMITIES: No clubbing, no edema, no cyanosis, 2+ pulses and upper and lower extremities. MUSCULOSKELETAL: Muscle strength and tone normal. SPINE: No scoliosis or deformity SKIN: No rashes CENTRAL NERVOUS SYSTEM: Alert and oriented -3. No focal deficits, tone is normal in all 4 extremities. PSYCHIATRIC: Alert and oriented -3. Appropriate affect. Intact judgment and insight. - Labs CBC & Chem 7: 05/14/20 06:04 05/14/20 06:04 Labs: Abnormal Lab Results - Last 24 Hours (Table) 05/14/20 05/14/20 Range/Units 06:04 06:04 Lymphocytes # 0.6 L (1.0-4.8) k/uL Creatinine 0.5 L (0.6-1.5) mg/dL BUN/Creatinine Ratio 32.00 H (12.00-20.00) Ratio Total Protein 5.7 L (6.2-8.2) g/dL Microbiology - Last 24 Hours (Table) 05/10/20 20:37 Blood Culture - Preliminary Blood No Growth after 72 hours 05/10/20 17:32 Blood Culture - Preliminary Blood No Growth after 72 hours Assessment and Plan Plan: #1. Acute hypoxic rest or a failure related to COVID 19 pneumonitis, , started on Remdesivir Decadron and Lovenox. The chest x-ray from today shows no major interval change in vision peripheral pulmonary infiltration consistent with the viral infection. #2. Cough, fever, shortness of breath, diarrhea related to the above, still having some cough and #3. Chronic atrial fibrillation, not on chronic anticoagulation #4. Sleep apnea on CPAP therapy #5. Former smoker #6. Anxiety #7. Osteoarthritis Plan: Continue current medical treatment, continue Decadron, continue anticoagulation, we will add Remdesivir. To clarify why the patient is not on any chronic anticoagulation. We'll complete the course of Remdesivir, continue supplements, and vitamins. We'll continue to follow
--- NOTE | 2020-05-14 10:34 | XR ---
EXAMINATION TYPE: XR chest 1V portable DATE OF EXAM: 05/14/2020 COMPARISON: 05/10/2020 HISTORY: Cough TECHNIQUE: Single frontal view of the chest is obtained. FINDINGS: Heart is enlarged. Coarsened interstitium is seen and there are subsegmental changes at th e left lung base. Postsurgical change left shoulder and severe arthropathy right shoulder. No pneumot horax. Patchy infiltrate left perihilar region. IMPRESSION: 1. Cardiomegaly with COPD and patchy left perihilar and lower lobe infiltrate stable in appearance.
[2020-05-14] MEDS: REMDESIVIR 100 MG in SODIUM CHLORIDE 0.9% 250 ML IVPB SCH (16:02)
--- NOTE | 2020-05-14 17:23 | P.PN ---
Subjective Progress Note Date: 05/14/20 Opal Howard, is an 80-year-old female patient of Dr. Vale, who presented to [facility] emergency room, with a chief complaint of fever cough and shortness of breath patient stated that her symptoms started 7 days prior to presentation and has been worsening she was evaluated in the emergency room vital examination on presentation reveals a temperature of 100.7 pulse 62 respiration 23 blood pressure 109/60 pulse ox 94% on room air her white blood count was 3.4 hemoglobin 15.2 platelet count 169 sodium 1:30 glucose 112 ferritin 422 C-reactive protein 38.5 cough and 19 PCR was positive patient was started on IV Decadron and was admitted to medical floor pulmonary consultation was requested. Patient was seen and examined on the medical floor she is alert and oriented 3 in no distress she is still complaining of cough and shortness of breath she started having diarrhea today otherwise she denies any complaints there is no fever or chills today no headache or dizziness no chest pain no palpitation no nausea or vomiting no abdominal pain no burning with urination no frequency or urgency and no hematuria. Patient has a known history of hypertension, osteoarthritis, gastroesophageal reflux disease, underlying history of atrial fibrillation, underlying history of obstructive sleep apnea. On 05/13/2020 patient was seen and examined on the medical floor she is alert and oriented 3 in no apparent distress there is no fever or chills no headache or dizziness no chest pain she has occasional shortness of breath especially with any activity she has cough with dark sputum production there is no palpitation no nausea or vomiting no abdominal pain no diarrhea no blood in the stools no burning with urination no frequency or urgency and no hematuria On 05/14/2020 patient was seen and examined on the medical floor she is alert and oriented 3 in no distress she is complaining of cough and shortness of breath with activity otherwise she denies any complaints there is no fever or chills no headache or dizziness no chest pain no palpitation no nausea or vomiting no abdominal pain no diarrhea and no urinary symptoms. Objective - Vital Signs Vital signs: Vital Signs Temp 97.5 F L 05/14/20 05:56 Pulse 62 05/14/20 05:56 Resp 22 05/14/20 05:56 BP 146/74 05/14/20 05:56 Pulse Ox 96 05/14/20 05:56 Intake & Output 1205/14/20 05/14/20 18:59 06:59 18:59 Other: Voiding Method Toilet # Voids 2 3 - Exam In general patient is alert and oriented 3 in no apparent distress HEENT head normocephalic and atraumatic Neck is supple no JVD no goiter no lymphadenopathy Chest exam reveals fine crackles in both lung shi no wheezing Cardiac exam reveals regular heart sounds S1 and S2 no gallops no murmurs Abdomen is soft nontender no organomegaly with normal bowel sounds Extremity exam reveals minimal edema no cyanosis or clubbing Neurological examination reveals no gross focal neurological deficit - Labs CBC & Chem 7: 05/14/20 06:04 05/14/20 06:04 Labs: Abnormal Lab Results - Last 24 Hours (Table) 05/14/20 Range/Units 06:04 Lymphocytes # 0.6 L (1.0-4.8) k/uL Microbiology - Last 24 Hours (Table) 05/10/20 20:37 Blood Culture - Preliminary Blood No Growth after 72 hours 05/10/20 17:32 Blood Culture - Preliminary Blood No Growth after 72 hours Assessment and Plan Plan: 1. Covid 19 infection with pneumonia 2. Underlying history of hypertension 3. Underlying history of hyperlipidemia 4. Underlying history of osteoarthritis 5. Underlying history of obstructive sleep apnea 6. Underlying history of atrial fibrillation, patient was not maintained on anticoagulation at home, will try to obtain old records in that regard. 7. Underlying history of gastroesophageal reflux disease At this time patient is admitted to medical floor She is started on IV dexamethasone, and vitamin C Pulmonary consultation requested, patient was evaluated by pulmonary and was started on Remdesevir Will follow closely
[2020-05-14] MEDS: MELATONIN 5 MG TABLET PO SCH (21:13)
--- NOTE | 2020-05-14 23:30 | PN ---
PROGRESS NOTE DATE OF SERVICE: 05/14/2020 REASON FOR FOLLOWUP: COVID-19 pneumonia. INTERVAL HISTORY: The patient is currently afebrile. Still complaining of shortness of breath. Minimal cough. No nausea, no vomiting. No abdominal pain or diarrhea. PHYSICAL EXAMINATION: Blood pressure 154/92 with a pulse of 74, temperature 97.8. She is 95% on 3 L nasal cannula. General description is an elderly female lying in bed in no distress. RESPIRATORY SYSTEM: Unlabored breathing with decreased breath sounds at the base. No wheeze. HEART: S1, S2. Regular rate and rhythm. ABDOMEN: Soft. No tenderness. EXTREMITIES: No edema of the feet. LABS: Hemoglobin is 15, white count 5.0. BUN of 16, creatinine 0.5. DIAGNOSTIC IMPRESSION AND PLAN: Patient with acute COVID-19 infection. Chest x-ray this morning stable appearance; no worsening. Patient to continue with Decadron, Lovenox, remdesivir and zinc, and continue with supportive care. MMODL / IJN: [id number] /
[2020-05-15] MEDS: DEXAMETHASONE SOD PHOSPHATE 10 MG/ML 1 ML VIAL IV SCH (08:19)
[2020-05-15] MEDS: PANTOPRAZOLE 40 MG TABLET PO SCH (08:19)
[2020-05-15] MEDS: ASPIRIN 81 MG PO SCH (08:19)
[2020-05-15] MEDS: CHOLECALCIFEROL 1,000 UNIT TAB PO SCH (08:19)
[2020-05-15] MEDS: ASCORBIC ACID 500 MG TAB PO SCH (08:19)
[2020-05-15] MEDS: ENOXAPARIN 40 MG/0.4 ML SYRINGE SQ SCH (08:20)
[2020-05-15] MEDS: MELOXICAM 7.5 MG TAB PO SCH (08:20)
[2020-05-15] MEDS: FUROSEMIDE 40 MG TAB PO SCH (08:20)
[2020-05-15] MEDS: MULTIVITAMINS, THERA 1 EACH TAB PO SCH (08:21)
[2020-05-15] MEDS: traMADol-ACETAMINOP 37.5-325MG 1 EACH TAB PO SCH ×2 (08:21→20:58)
[2020-05-15] MEDS: METOPROLOL SUCCINATE (ER) 25 MG TAB.ER.24H PO SCH (08:21)
[2020-05-15] MEDS: ZINC SULFATE 220 MG CAP PO SCH (08:21)
[2020-05-15] MEDS: POTASSIUM CHLORIDE ER 20 MEQ TAB.ER PO SCH ×2 (08:21→20:56)
[2020-05-15] MEDS: ALBUTEROL HFA INHALER INHALATION SCH ×4 (09:22→20:01)
--- NOTE | 2020-05-15 11:01 | P.PN ---
Subjective Progress Note Date: 05/15/20 78-year-old here patient with community related pneumonia and the patient is being seen in follow-up. The patient was treated with a combination of Decadron, Remdesivir and Lovenox. Currently she is ranging between 2 and 3 L of oxygen by nasal cannula with a pulse ox of 95%. She is afebrile. She has no specific complaints for now. Inflammatory markers are not much elevated. She is resting comfortably in bed. She is still coughing. She has a good appetite. Evaluation on 05/15/2020 patient seen in follow-up on medical surgical floor, today's labs redness severe currently she remains on oral Decadron, and anticoagulation in the form of Lovenox, she is currently on 3 L of oxygen with a pulse ox of 94%, she has been afebrile, no new chest x-ray today, her last chest x-ray was done yesterday showing cardiomegaly, COPD and patchy left perihilar and lower lobe infiltrate, stable in appearance, no acute events overnight, her cough is improving. No nausea vomiting or diarrhea, physical examination redness and mild crackles in bilateral bases, and she sat 95% on 3 L, she has a slightly congested cough Objective - Vital Signs Vital signs: Vital Signs Temp 97.9 F 05/15/20 10:15 Pulse 73 05/15/20 10:15 Resp 18 05/15/20 10:15 BP 155/86 05/15/20 10:15 Pulse Ox 94 L 05/15/20 10:15 Intake & Output 05/14/20 05/15/20 05/15/20 18:59 06:59 18:59 Other: Voiding Method Toilet # Voids 2 2 - Exam GENERAL EXAM: Alert, very pleasant, 80-year-old white female, on 2 L of oxygen with a pulse ox of 92%, room air pulse ox was 86%,, comfortable in no apparent distress. HEAD: Normocephalic/atraumatic. EYES: Normal reaction of pupils, equal size. Conjunctiva pink, sclera white. NOSE: Clear with pink turbinates. THROAT: No erythema or exudates. NECK: No masses, no JVD, no thyroid enlargement, no adenopathy. CHEST: No chest wall deformity. Symmetrical expansion. LUNGS: Equal air entry with no crackles, wheeze, rhonchi or dullness. CVS: Regular rate and rhythm, normal S1 and S2, no gallops, no murmurs, no rubs ABDOMEN: Soft, nontender. No hepatosplenomegaly, normal bowel sounds, no guarding or rigidity. EXTREMITIES: No clubbing, no edema, no cyanosis, 2+ pulses and upper and lower extremities. MUSCULOSKELETAL: Muscle strength and tone normal. SPINE: No scoliosis or deformity SKIN: No rashes CENTRAL NERVOUS SYSTEM: Alert and oriented -3. No focal deficits, tone is normal in all 4 extremities. PSYCHIATRIC: Alert and oriented -3. Appropriate affect. Intact judgment and insight. - Labs CBC & Chem 7: 05/14/20 06:04 05/14/20 06:04 Labs: Microbiology - Last 24 Hours (Table) 05/10/20 20:37 Blood Culture - Preliminary Blood No Growth after 96 hours 05/10/20 17:32 Blood Culture - Preliminary Blood No Growth after 96 hours Assessment and Plan Plan: #1. Acute hypoxic rest or a failure related to COVID 19 pneumonitis, , started on Remdesivir Decadron and Lovenox. The chest x-ray from today shows no major interval change in vision peripheral pulmonary infiltration consistent with the viral infection. #2. Cough, fever, shortness of breath, diarrhea related to the above, still having some cough and #3. Chronic atrial fibrillation, not on chronic anticoagulation #4. Sleep apnea on CPAP therapy #5. Former smoker #6. Anxiety #7. Osteoarthritis Plan: Continue current medical treatment, continue Decadron, continue anticoagulation, Remdesivir. wean off FiO2, she is using the Lantus amended today today, she's had no acute events overnight, she is feeling better currently on seeking Be considered for discharge home today or tomorrow
[2020-05-15] MEDS: REMDESIVIR 100 MG in SODIUM CHLORIDE 0.9% 250 ML IVPB SCH (17:28)
--- NOTE | 2020-05-15 18:03 | P.PN ---
Subjective Progress Note Date: 05/15/20 Opal Howard, is an 80-year-old female patient of Dr. Vale, who presented to [facility] emergency room, with a chief complaint of fever cough and shortness of breath patient stated that her symptoms started 7 days prior to presentation and has been worsening she was evaluated in the emergency room vital examination on presentation reveals a temperature of 100.7 pulse 62 respiration 23 blood pressure 109/60 pulse ox 94% on room air her white blood count was 3.4 hemoglobin 15.2 platelet count 169 sodium 1:30 glucose 112 ferritin 422 C-reactive protein 38.5 cough and 19 PCR was positive patient was started on IV Decadron and was admitted to medical floor pulmonary consultation was requested. Patient was seen and examined on the medical floor she is alert and oriented 3 in no distress she is still complaining of cough and shortness of breath she started having diarrhea today otherwise she denies any complaints there is no fever or chills today no headache or dizziness no chest pain no palpitation no nausea or vomiting no abdominal pain no burning with urination no frequency or urgency and no hematuria. Patient has a known history of hypertension, osteoarthritis, gastroesophageal reflux disease, underlying history of atrial fibrillation, underlying history of obstructive sleep apnea. On 05/13/2020 patient was seen and examined on the medical floor she is alert and oriented 3 in no apparent distress there is no fever or chills no headache or dizziness no chest pain she has occasional shortness of breath especially with any activity she has cough with dark sputum production there is no palpitation no nausea or vomiting no abdominal pain no diarrhea no blood in the stools no burning with urination no frequency or urgency and no hematuria On 05/14/2020 patient was seen and examined on the medical floor she is alert and oriented 3 in no distress she is complaining of cough and shortness of breath with activity otherwise she denies any complaints there is no fever or chills no headache or dizziness no chest pain no palpitation no nausea or vomiting no abdominal pain no diarrhea and no urinary symptoms. On 05/15/2020 patient was seen and examined on the medical floor she is alert and oriented 3 in no apparent distress she is complaining of cough and sh ortness of breath with activity otherwise she denies any complaints there is no fever or chills no headache or dizziness no chest pain no palpitation no nausea or vomiting no abdominal pain no diarrhea no blood in the stools no burning with urination no frequency or urgency and no hematuria chest x-ray reveals evidence of cardiomegaly, COPD, and patchy left perihilar and lower lobe infiltrate Objective - Vital Signs Vital signs: Vital Signs Temp 97.9 F 05/15/20 05:17 Pulse 61 05/15/20 05:17 Resp 16 05/15/20 05:17 BP 155/90 05/15/20 05:17 Pulse Ox 95 05/15/20 05:17 Intake & Output 05/14/20 05/15/20 05/15/20 18:59 06:59 18:59 Other: Voiding Method Toilet # Voids 2 2 - Exam In general patient is alert and oriented 3 in no apparent distress HEENT head normocephalic and atraumatic Neck is supple no JVD no goiter no lymphadenopathy Chest exam reveals fine crackles in both lung shi no wheezing Cardiac exam reveals regular heart sounds S1 and S2 no gallops no murmurs Abdomen is soft nontender no organomegaly with normal bowel sounds Extremity exam reveals minimal edema no cyanosis or clubbing Neurological examination reveals no gross focal neurological deficit - Labs CBC & Chem 7: 05/14/20 06:04 05/14/20 06:04 Labs: Abnormal Lab Results - Last 24 Hours (Table) 05/14/20 Range/Units 06:04 Creatinine 0.5 L (0.6-1.5) mg/dL BUN/Creatinine Ratio 32.00 H (12.00-20.00) Ratio Total Protein 5.7 L (6.2-8.2) g/dL Microbiology - Last 24 Hours (Table) 05/10/20 20:37 Blood Culture - Preliminary Blood No Growth after 96 hours 05/10/20 17:32 Blood Culture - Preliminary Blood No Growth after 96 hours Assessment and Plan Plan: 1. Covid 19 infection with pneumonia 2. Underlying history of hypertension 3. Underlying history of hyperlipidemia 4. Underlying history of osteoarthritis 5. Underlying history of obstructive sleep apnea 6. Underlying history of atrial fibrillation, patient was not maintained on anticoagulation at home, will try to obtain old records in that regard. 7. Underlying history of gastroesophageal reflux disease At this time patient is admitted to medical floor She is started on IV dexamethasone, and vitamin C Pulmonary consultation requested, patient was evaluated by pulmonary and was started on Remdesevir Will follow closely
[2020-05-15] MEDS: MELATONIN 5 MG TABLET PO SCH (20:54)
--- NOTE | 2020-05-16 00:20 | PN ---
PROGRESS NOTE DATE OF SERVICE: 05/15/2020 REASON FOR FOLLOWUP: Acute COVID-19 pneumonia. INTERVAL HISTORY: The patient is currently afebrile. The patient is feeling slightly better. She is breathing more comfortably. Denies having any chest pain. Minimal cough. No nausea, vomiting. No abdominal pain. No diarrhea. PHYSICAL EXAMINATION: Blood pressure 135/57 with a pulse of 69, temperature 97.4. She is 93% on 1 L nasal cannula. General description is an elderly female lying in bed in no distress. Respiratory system: Unlabored breathing, decreased breath sounds in the base, with no wheeze. Heart S1, S2. Regular rate and rhythm. ABDOMEN: Soft, no tenderness. LABS: Hemoglobin is 15, white count 5.0. BUN of 6, creatinine 0.5. Blood culture has been negative. IMPRESSION/PLAN: Patient with acute COVID-19 pneumonia in this patient currently on dexamethasone and Lovenox plan to finish a 5 day course of Remdesivir and continue current respiratory support and wean off oxygen. Continue supportive care. MMODL / IJN: [id number] /
[2020-05-16] MEDS: MULTIVITAMINS, THERA 1 EACH TAB PO SCH (08:33)
[2020-05-16] MEDS: ENOXAPARIN 40 MG/0.4 ML SYRINGE SQ SCH (08:34)
[2020-05-16] MEDS: ASPIRIN 81 MG PO SCH (08:34)
[2020-05-16] MEDS: ASCORBIC ACID 500 MG TAB PO SCH (08:34)
[2020-05-16] MEDS: PANTOPRAZOLE 40 MG TABLET PO SCH (08:34)
[2020-05-16] MEDS: ZINC SULFATE 220 MG CAP PO SCH (08:34)
[2020-05-16] MEDS: MELOXICAM 7.5 MG TAB PO SCH (08:34)
[2020-05-16] MEDS: METOPROLOL SUCCINATE (ER) 25 MG TAB.ER.24H PO SCH (08:34)
[2020-05-16] MEDS: CHOLECALCIFEROL 1,000 UNIT TAB PO SCH (08:34)
[2020-05-16] MEDS: FUROSEMIDE 40 MG TAB PO SCH (08:34)
[2020-05-16] MEDS: DEXAMETHASONE SOD PHOSPHATE 10 MG/ML 1 ML VIAL IV SCH (08:35)
[2020-05-16] MEDS: POTASSIUM CHLORIDE ER 20 MEQ TAB.ER PO SCH ×2 (08:35→21:28)
[2020-05-16] MEDS: traMADol-ACETAMINOP 37.5-325MG 1 EACH TAB PO SCH ×2 (08:36→21:27)
[2020-05-16] MEDS: ALBUTEROL HFA INHALER INHALATION SCH ×4 (09:29→21:06)
--- NOTE | 2020-05-16 09:54 | P.PN ---
Subjective Progress Note Date: 05/16/20 Principal diagnosis: COVID19 pneumonia 78-year-old here patient with community related pneumonia and the patient is being seen in follow-up. The patient was treated with a combination of Decadron, Remdesivir and Lovenox. Currently she is ranging between 2 and 3 L of oxygen by nasal cannula with a pulse ox of 95%. She is afebrile. She has no specific complaints for now. Inflammatory markers are not much elevated. She is resting comfortably in bed. She is still coughing. She has a good appetite. Evaluation on 05/15/2020 patient seen in follow-up on medical surgical floor, today's labs redness severe currently she remains on oral Decadron, and anticoagulation in the form of Lovenox, she is currently on 3 L of oxygen with a pulse ox of 94%, she has been afebrile, no new chest x-ray today, her last chest x-ray was done yesterday showing cardiomegaly, COPD and patchy left perihilar and lower lobe infiltrate, stable in appearance, no acute events overnight, her cough is improving. No nausea vomiting or diarrhea, physical examination redness and mild crackles in bilateral bases, and she sat 95% on 3 L, she has a slightly congested cough On 05/16/2020 patient seen in follow-up on selective care unit, she is currently on 3 L of oxygen the pulse ox of 97%, she has had no acute complaints overnight, vital signs have been stable, no fever or chills, she completed a course of Remdesivir, she remains on oral Decadron, lung sounds are clear, no crackles, no rhonchi no wheezing, patient has been tolerating ambulation, no specific complaints, she anticipated to be discharged home today Objective - Vital Signs Vital signs: Vital Signs Temp 97.7 F 05/16/20 05:42 Pulse 69 05/15/20 22:00 Resp 17 05/16/20 05:42 BP 113/72 05/16/20 05:42 Pulse Ox 96 05/16/20 05:42 Intake & Output 05/15/20 05/16/20 05/16/20 18:59 06:59 18:59 Other: Voiding Method Toilet # Voids 2 1 - Exam GENERAL EXAM: Alert, very pleasant, 80-year-old white female, on 2 L of oxygen and a pulse ox of 97%, comfortable in no apparent distress. HEAD: Normocephalic/atraumatic. EYES: Normal reaction of pupils, equal size. Conjunctiva pink, sclera white. NOSE: Clear with pink turbinates. THROAT: No erythema or exudates. NECK: No masses, no JVD, no thyroid enlargement, no adenopathy. CHEST: No chest wall deformity. Symmetrical expansion. LUNGS: Equal air entry with no crackles, wheeze, rhonchi or dullness. CVS: Regular rate and rhythm, normal S1 and S2, no gallops, no murmurs, no rubs ABDOMEN: Soft, nontender. No hepatosplenomegaly, normal bowel sounds, no guarding or rigidity. EXTREMITIES: No clubbing, no edema, no cyanosis, 2+ pulses and upper and lower extremities. MUSCULOSKELETAL: Muscle strength and tone normal. SPINE: No scoliosis or deformity SKIN: No rashes CENTRAL NERVOUS SYSTEM: Alert and oriented -3. No focal deficits, tone is normal in all 4 extremities. PSYCHIATRIC: Alert and oriented -3. Appropriate affect. Intact judgment and insight. - Labs CBC & Chem 7: 05/14/20 06:04 05/14/20 06:04 Labs: Microbiology - Last 24 Hours (Table) 05/10/20 20:37 Blood Culture - Preliminary Blood No Growth after 120 hours 05/10/20 17:32 Blood Culture - Preliminary Blood No Growth after 120 hours Assessment and Plan Plan: Assessment: #1. Acute hypoxic rest or a failure related to COVID 19 pneumonitis, with onset of symptoms 7 days ago, started on Remdesivir on 05/11/2020 #2. Cough, fever, shortness of breath, diarrhea related to the above #3. Chronic atrial fibrillation, not on chronic anticoagulation #4. Sleep apnea on CPAP therapy #5. Former smoker #6. Anxiety #7. Osteoarthritis Plan: Current medical treatment, patient is doing well, obtain home oxygen assessment, vital signs have been stable, patient can be considered for discharge home from pulmonary perspective, she can complete outpatient course of Decadron for total of 10 days including with what patient received in the hospital I performed a history & physical examination of the patient and discussed their management with my nurse practitioner, Laly Reilly. I reviewed the nurse practitioner's note and agree with the documented findings and plan of care. Lung sounds are positive for diminished breath sounds. The findings and the impression was discussed with the patient. I attest to the documentation by the nurse practitioner. Time with Patient: Less than 30
--- NOTE | 2020-05-16 17:45 | P.PN ---
Subjective Progress Note Date: 05/16/20 Opal Howard, is an 80-year-old female patient of Dr. Vale, who presented to [facility] emergency room, with a chief complaint of fever cough and shortness of breath patient stated that her symptoms started 7 days prior to presentation and has been worsening she was evaluated in the emergency room vital examination on presentation reveals a temperature of 100.7 pulse 62 respiration 23 blood pressure 109/60 pulse ox 94% on room air her white blood count was 3.4 hemoglobin 15.2 platelet count 169 sodium 1:30 glucose 112 ferritin 422 C-reactive protein 38.5 cough and 19 PCR was positive patient was started on IV Decadron and was admitted to medical floor pulmonary consultation was requested. Patient was seen and examined on the medical floor she is alert and oriented 3 in no distress she is still complaining of cough and shortness of breath she started having diarrhea today otherwise she denies any complaints there is no fever or chills today no headache or dizziness no chest pain no palpitation no nausea or vomiting no abdominal pain no burning with urination no frequency or urgency and no hematuria. Patient has a known history of hypertension, osteoarthritis, gastroesophageal reflux disease, underlying history of atrial fibrillation, underlying history of obstructive sleep apnea. On 05/13/2020 patient was seen and examined on the medical floor she is alert and oriented 3 in no apparent distress there is no fever or chills no headache or dizziness no chest pain she has occasional shortness of breath especially with any activity she has cough with dark sputum production there is no palpitation no nausea or vomiting no abdominal pain no diarrhea no blood in the stools no burning with urination no frequency or urgency and no hematuria On 05/14/2020 patient was seen and examined on the medical floor she is alert and oriented 3 in no distress she is complaining of cough and shortness of breath with activity otherwise she denies any complaints there is no fever or chills no headache or dizziness no chest pain no palpitation no nausea or vomiting no abdominal pain no diarrhea and no urinary symptoms. On 05/15/2020 patient was seen and examined on the medical floor she is alert and oriented 3 in no apparent distress she is complaining of cough and sh ortness of breath with activity otherwise she denies any complaints there is no fever or chills no headache or dizziness no chest pain no palpitation no nausea or vomiting no abdominal pain no diarrhea no blood in the stools no burning with urination no frequency or urgency and no hematuria chest x-ray reveals evidence of cardiomegaly, COPD, and patchy left perihilar and lower lobe infiltrate On 05/16/2020 patient was seen and examined on the medical floor she is alert and oriented 3 she is still complaining of cough and shortness of breath, pulse ox is 92% at rest however it dropped to 78% with minimal activity on room air, otherwise patient denies any complaints there is no fever or chills no headache or dizziness no chest pain no palpitation no nausea or vomiting no abdominal pain no diarrhea no burning with urination no frequency or urgency and no hematuria, possible discharge to home tomorrow, patient will need home oxygen. Objective - Vital Signs Vital signs: Vital Signs Temp 97.9 F 05/16/20 14:14 Pulse 86 05/16/20 14:14 Resp 16 05/16/20 14:14 BP 108/56 05/16/20 14:14 Pulse Ox 92 L 05/16/20 14:14 Intake & Output 05/15/20 05/16/20 05/16/20 18:59 06:59 18:59 Intake Total 250 Balance 250 Weight 90.718 kg Intake: Oral 250 Other: Voiding Method Toilet Toilet # Voids 2 1 - Exam In general patient is alert and oriented 3 in no apparent distress HEENT head normocephalic and atraumatic Neck is supple no JVD no goiter no lymphadenopathy Chest exam reveals fine crackles in both lung shi no wheezing Cardiac exam reveals regular heart sounds S1 and S2 no gallops no murmurs Abdomen is soft nontender no organomegaly with normal bowel sounds Extremity exam reveals minimal edema no cyanosis or clubbing Neurological examination reveals no gross focal neurological deficit - Labs CBC & Chem 7: 05/14/20 06:04 05/14/20 06:04 Labs: Microbiology - Last 24 Hours (Table) 05/10/20 20:37 Blood Culture - Preliminary Blood No Growth after 120 hours 05/10/20 17:32 Blood Culture - Preliminary Blood No Growth after 120 hours Assessment and Plan Plan: 1. Covid 19 infection with pneumonia 2. Underlying history of hypertension 3. Underlying history of hyperlipidemia 4. Underlying history of osteoarthritis 5. Underlying history of obstructive sleep apnea 6. Underlying history of atrial fibrillation, patient was not maintained on anticoagulation at home, will try to obtain old records in that regard. 7. Underlying history of gastroesophageal reflux disease At this time patient is admitted to medical floor She is started on IV dexamethasone, and vitamin C Pulmonary consultation requested, patient was evaluated by pulmonary and was started on Remdesevir Will follow closely
[2020-05-16] MEDS: MELATONIN 5 MG TABLET PO SCH (21:27)
--- NOTE | 2020-05-16 23:59 | PN ---
PROGRESS NOTE DATE OF SERVICE: 05/16/2020 REASON FOR FOLLOWUP: COVID-19 pneumonia. INTERVAL HISTORY: Patient is currently afebrile. Patient is breathing more comfortably. Patient denies having any chest pain. Minimal cough. No nausea, vomiting. No abdominal pain or diarrhea. PHYSICAL EXAMINATION: Blood pressure 152/70 with a pulse of 59, temperature 97.9. She is 94% on 2 L nasal cannula. General description is an elderly female lying in bed in no distress. Respiratory system: Unlabored breathing, decreased breath sounds at bases. No wheeze. HEART: S1, S2. Regular rate and rhythm. Abdomen soft, no tenderness. Extremities: No edema of the feet. LABS: Hemoglobin 15, white count 5.0, BUN of 16, creatinine 0.5. DIAGNOSTIC IMPRESSION AND PLAN: Patient with acute COVID-19 infection. This patient has completed her 5-day course of Remdesivir. Currently on Decadron and Lovenox. Continue along with supportive care. MMODL / IJN: [id number] / MTDD
[2020-05-17 06:24] LABS: Basophils # (A) 0.1 k/uL (0-0.2); Basophils % (A) 1 %; Eosinophils # (A) 0.1 k/uL (0-0.7); Eosinophils % (A) 1 %; HGB 16.1 gm/dL (11.4-16.0); Lymphocytes # (A) 0.7 k/uL (1.0-4.8); Lymphocytes % (A) 12 %; MCH 30.9 pg (25.0-35.0); MCHC 34.3 g/dL (31.0-37.0); MCV 90.1 fL (80.0-100.0); Mean Platelet Volume 6.4; Monocytes # (A) 0.4 k/uL (0-1.0); Monocytes % (A) 7 %; Neutrophils # (A) 4.2 k/uL (1.3-7.7); Neutrophils % (A) 76 %; Platelet Count 352 k/uL (150-450); RBC 5.22 m/uL (3.80-5.40); RDW 13.2 % (11.5-15.5); WBC 5.5 k/uL (3.8-10.6)
[2020-05-17] MEDS: ZINC SULFATE 220 MG CAP PO SCH (07:48)
[2020-05-17] MEDS: ASCORBIC ACID 500 MG TAB PO SCH (07:48)
[2020-05-17] MEDS: CHOLECALCIFEROL 1,000 UNIT TAB PO SCH (07:48)
[2020-05-17] MEDS: PANTOPRAZOLE 40 MG TABLET PO SCH (07:49)
[2020-05-17] MEDS: ASPIRIN 81 MG PO SCH (07:49)
[2020-05-17] MEDS: DEXAMETHASONE SOD PHOSPHATE 10 MG/ML 1 ML VIAL IV SCH (07:49)
[2020-05-17] MEDS: FUROSEMIDE 40 MG TAB PO SCH (07:49)
[2020-05-17] MEDS: METOPROLOL SUCCINATE (ER) 25 MG TAB.ER.24H PO SCH (07:49)
[2020-05-17] MEDS: MULTIVITAMINS, THERA 1 EACH TAB PO SCH (07:49)
[2020-05-17] MEDS: POTASSIUM CHLORIDE ER 20 MEQ TAB.ER PO SCH (07:50)
[2020-05-17] MEDS: MELOXICAM 7.5 MG TAB PO SCH (07:50)
[2020-05-17] MEDS: traMADol-ACETAMINOP 37.5-325MG 1 EACH TAB PO SCH (07:50)
[2020-05-17] MEDS: ENOXAPARIN 40 MG/0.4 ML SYRINGE SQ SCH (07:51)
[2020-05-17] MEDS: ALBUTEROL HFA INHALER INHALATION SCH ×2 (08:07→11:02)
[2020-05-17 09:47] LABS: African American GFR (CKD) 93.5 (60.0-200.0); Albumin 3.7 g/dL (3.80-4.90); Albumin/Globulin Ratio 1.85 (1.60-3.17); Anion Gap 7.4 mmol/L (4.00-12.00); BUN/Creat Ratio 34.29 Ratio (12.00-20.00); Calcium 9.3 mg/dL (8.7-10.3); Carbon Dioxide 29.6 mmol/L (21.6-31.8); Non-African American GFR(CKD) 80.7 (60.0-200.0); Potassium 4.3 mmol/L (3.5-5.5); Total Bilirubin 0.9 mg/dL (0.2-1.2); Total Protein 5.7 g/dL (6.2-8.2)
--- NOTE | 2020-05-17 10:55 | P.PN ---
Subjective Progress Note Date: 05/17/20 78-year-old here patient with community related pneumonia and the patient is being seen in follow-up. The patient was treated with a combination of Decadron, Remdesivir and Lovenox. Currently she is ranging between 2 and 3 L of oxygen by nasal cannula with a pulse ox of 95%. She is afebrile. She has no specific complaints for now. Inflammatory markers are not much elevated. She is resting comfortably in bed. She is still coughing. She has a good appetite. Evaluation on 05/15/2020 patient seen in follow-up on medical surgical floor, today's labs redness severe currently she remains on oral Decadron, and anticoagulation in the form of Lovenox, she is currently on 3 L of oxygen with a pulse ox of 94%, she has been afebrile, no new chest x-ray today, her last chest x-ray was done yesterday showing cardiomegaly, COPD and patchy left perihilar and lower lobe infiltrate, stable in appearance, no acute events overnight, her cough is improving. No nausea vomiting or diarrhea, physical examination redness and mild crackles in bilateral bases, and she sat 95% on 3 L, she has a slightly congested cough On 05/16/2020 patient seen in follow-up on selective care unit, she is currently on 3 L of oxygen the pulse ox of 97%, she has had no acute complaints overnight, vital signs have been stable, no fever or chills, she completed a course of Remdesivir, she remains on oral Decadron, lung sounds are clear, no crackles, no rhonchi no wheezing, patient has been tolerating ambulation, no specific complaints, she anticipated to be discharged home today on 05/17/2020, the patient is on 2 L of oxygen by nasal cannula.Doing well. Cough is improving. Lungs are clear. No new complaints. She has completed her treatment. On today's of oxygen and pulse ox is in the order of 99%. I'm going to try her on room air oxygen.no other significant events over the past 24 hours. Objective - Vital Signs Vital signs: Vital Signs Temp 98.1 F 05/17/20 10:00 Pulse 63 05/17/20 10:00 Resp 24 05/17/20 10:00 BP 128/69 05/17/20 10:00 Pulse Ox 94 L 05/17/20 10:00 Intake & Output 05/16/20 05/17/20 05/17/20 18:59 06:59 18:59 Intake Total 450 Balance 450 Weight 90.718 kg 90.5 kg Intake: Oral 450 Other: Voiding Method Toilet Toilet # Voids 1 1 - Exam GENERAL EXAM: Alert, very pleasant, 80-year-old white female, on 2 L of oxygen with a pulse ox of 92%, room air pulse ox needs to be checked.,, comfortable in no apparent distress. HEAD: Normocephalic/atraumatic. EYES: Normal reaction of pupils, equal size. Conjunctiva pink, sclera white. NOSE: Clear with pink turbinates. THROAT: No erythema or exudates. NECK: No masses, no JVD, no thyroid enlargement, no adenopathy. CHEST: No chest wall deformity. Symmetrical expansion. LUNGS: Equal air entry with no crackles, wheeze, rhonchi or dullness. CVS: Regular rate and rhythm, normal S1 and S2, no gallops, no murmurs, no rubs ABDOMEN: Soft, nontender. No hepatosplenomegaly, normal bowel sounds, no guarding or rigidity. EXTREMITIES: No clubbing, no edema, no cyanosis, 2+ pulses and upper and lower extremities. MUSCULOSKELETAL: Muscle strength and tone normal. SPINE: No scoliosis or deformity SKIN: No rashes CENTRAL NERVOUS SYSTEM: Alert and oriented -3. No focal deficits, tone is normal in all 4 extremities. PSYCHIATRIC: Alert and oriented -3. Appropriate affect. Intact judgment and insight. - Labs CBC & Chem 7: 05/17/20 05:50 05/17/20 05:50 Labs: Abnormal Lab Results - Last 24 Hours (Table) 05/17/20 05/17/20 Range/Units 05:50 05:50 Hgb 16.1 H (11.4-16.0) gm/dL Hct 47.0 H (34.0-46.0) % Lymphocytes # 0.7 L (1.0-4.8) k/uL Sodium 133 L (135-145) mmol/L BUN/Creatinine Ratio 34.29 H (12.00-20.00) Ratio Total Protein 5.7 L (6.2-8.2) g/dL Albumin 3.70 L (3.80-4.90) g/dL Microbiology - Last 24 Hours (Table) 05/10/20 20:37 Blood Culture - Final Blood No Growth after 144 hours 05/10/20 17:32 Blood Culture - Final Blood No Growth after 144 hours Assessment and Plan Plan: #1. Acute hypoxic rest or a failure related to COVID 19 pneumonitis, with onset of symptoms 7 days ago, started on Remdesivir on 05/11/2020 #2. Cough, fever, shortness of breath, diarrhea related to the above #3. Chronic atrial fibrillation, not on chronic anticoagulation #4. Sleep apnea on CPAP therapy #5. Former smoker #6. Anxiety #7. Osteoarthritis plan Continue that the patient is still requiring oxygen supplementationat a low- flow. It's reasonable to consider home oxygen therapy on this patient at time of discharge. Her condition is stable for now. no other significant issues for now.
[2020-05-17 14:33] VITALS: BP 123/78; PULSE 67; RESP 20; TEMP 98.7
--- NOTE | 2020-05-17 19:59 | P.PN ---
Progress Note - Text Progress Note Date: 05/17/20 REASON FOR FOLLOWUP: COVID-19 pneumonia. INTERVAL HISTORY: Patient is afebrile. Patient is breathing comfortably. Patient denies having any chest pain, pt did have Minimal dry cough. No nausea, vomiting. No abdominal pain or diarrhea. PHYSICAL EXAMINATION: Blood pressure 150/75 with a pulse of 60, temperature 97.9. She is 94% on 2 L nasal cannula. General description is an elderly female lying in bed in no distress. Respiratory system: Unlabored breathing, decreased breath sounds at bases. No wheeze. HEART: S1, S2. Regular rate and rhythm. Abdomen soft, no tenderness. Extremities: No edema of the feet. LABS: reviewed DIAGNOSTIC IMPRESSION AND PLAN: Patient with acute COVID-19 infection. This patient has completed her 5-day course of Remdesivir. Currently on Decadron and Lovenox, zinc. to finish therapy with short course of decadron and zinc
== END 2020-05-17 15:30 | disposition home health service (06) | DRG 177 ==
LOC: EC 16:47 → 6NMEDSUR 20:39 → 4SSUR 05-11 11:49
PROVIDERS: ADMIT Internal Medicine; ATTEND Internal Medicine
PROC: XW033E5 Introduction of Remdesivir Anti-infective into Peripheral Vein, Percutaneous Approach, New Technology Group 5 (ICD-10-PCS; principal; 2020-05-11)
DX: U07.1 COVID-19 (principal); J12.89 Other viral pneumonia; J96.01 Acute respiratory failure with hypoxia; J44.0 Chronic obstructive pulmonary disease with (acute) lower respiratory infection; I48.20 Chronic atrial fibrillation, unspecified; M19.90 Unspecified osteoarthritis, unspecified site; D72.810 Lymphocytopenia; E78.5 Hyperlipidemia, unspecified; F41.9 Anxiety disorder, unspecified; G47.33 Obstructive sleep apnea (adult) (pediatric); Z99.89 Dependence on other enabling machines and devices; I10 Essential (primary) hypertension; R19.7 Diarrhea, unspecified; Z82.0 Family history of epilepsy and other diseases of the nervous system; Z82.49 Family history of ischemic heart disease and other diseases of the circulatory system; Z79.1 Long term (current) use of non-steroidal anti-inflammatories (NSAID); Z79.82 Long term (current) use of aspirin; Z79.899 Other long term (current) drug therapy; Z87.891 Personal history of nicotine dependence; Z96.653 Presence of artificial knee joint, bilateral; K21.9 Gastro-esophageal reflux disease without esophagitis; K44.9 Diaphragmatic hernia without obstruction or gangrene; D72.819 Decreased white blood cell count, unspecified; Z88.0 Allergy status to penicillin; Z88.2 Allergy status to sulfonamides; Z88.8 Allergy status to other drugs, medicaments and biological substances
CPT/HCPCS: 36415; 71045; 80053; 81001; 82728; 83605; 83735; 84145; 85025; 85379; 85610; 85730; 86140; 87040; 87635; 93005; 94640; 96372; 96374; 96376; 99285

== ENCOUNTER 2020-09-11 19:48 | Observation (INO) | payer MEDICARE ==
--- NOTE | 2020-09-11 21:18 | ED ---
General Adult HPI <Bart Gardner - Last Filed: 09/11/20 21:17> - General Source: RN notes reviewed, old records reviewed Limitations: no limitations - History of Present Illness -: hour(s) Radiation: other (No pain) Consistency: constant Improves with: none Worsens with: none Associated Symptoms: weakness Treatments Prior to Arrival: none <Hector Shoemaker - Last Filed: 09/12/20 02:14> - General Stated complaint: GI bleed - History of Present Illness Initial comments: 80-year-old female presents to emergency Department with a chief complaint of rectal bleeding. Patient reports she's had 2 episodes of bright red bleeding earlier today. States she has been having persistent diarrhea for the past 3 weeks. Denies any nausea or vomiting. Denies any urinary or vaginal symptoms. She denies any abdominal or chest pain. (Bart Gardner) This is an 80-year-old female to the ER for evaluation patient does have known blood thinners secondary atrial fibrillation is had multiple episodes of bright red blood per rectum today. Otherwise patient does not feel weak L or have any other complaint (Hector Shoemaker) - Related Data Home Medications Medication Instructions Recorded Confirmed Furosemide [Lasix] 40 mg PO DAILY 11/30/15 09/11/20 Lansoprazole 30 mg PO DAILY 11/30/15 09/11/20 Potassium Chloride [Klor-Con 20] 20 meq PO BID 11/30/15 09/11/20 traMADol HCL/ACETAMINOPHEN 1 tab PO QAM 11/30/15 09/11/20 [Ultracet 37.5-325] Aspirin [Adult Low Dose Aspirin EC] 81 mg PO DAILY 05/10/20 09/11/20 Cholecalciferol [Vitamin D3 (25 1,000 unit PO DAILY 05/10/20 09/11/20 Mcg = 1000 Iu)] Meloxicam [Mobic] 7.5 mg PO DAILY 05/10/20 09/11/20 Multivitamins, Thera [Multivitamin 1 tab PO DAILY 05/10/20 09/11/20 (formulary)] traMADol-ACETAMINOP 37.5-325MG 0.5 mg PO HS 05/10/20 09/11/20 [Ultracet] Albuterol Inhaler [Ventolin Hfa 1 puff INHALATION RT-QID PRN 04/06/21 04/06/21 Inhaler] Biotin 10,000 mcg PO DAILY 09/11/20 09/11/20 Magnesium Oxide 400 mg PO DAILY 09/11/20 09/11/20 Melatonin 5 mg PO HS PRN 09/11/20 09/11/20 Metoprolol Succinate (ER) [Toprol 100 mg PO DAILY 09/11/20 09/11/20 Xl] Triamcinolone 0.1% Ointment 1 applic TOPICAL BID 09/11/20 09/11/20 [Kenalog 0.1% Ointment] Previous Rx's Medication Instructions Recorded Ascorbic Acid [Vitamin C] 500 mg PO DAILY tab 05/17/20 Zinc Sulfate [Orazinc] 220 mg PO DAILY cap 05/17/20 Allergies Allergy/AdvReac Type Severity Reaction Status Date / Time KAREN Inhibitors Allergy Unknown Verified 09/11/20 23:40 Penicillins Allergy Rash/Hives Verified 09/11/20 23:40 Sulfa (Sulfonamide Allergy Rash/Hives Verified 09/11/20 23:40 Antibiotics) Review of Systems ROS Other: All systems not noted in ROS Statement are negative. <Bart Gardner - Last Filed: 09/11/20 21:17> ROS Other: All systems not noted in ROS Statement are negative. <Hector Shoemaker - Last Filed: 09/12/20 02:14> ROS Statement: Those systems with pertinent positive or pertinent negative responses have been documented in the HPI. Past Medical History Past Medical History: Atrial Fibrillation, Hypertension, Sleep Apnea/CPAP/BIPAP Additional Past Medical History / Comment(s): [facility] [place] AFTER 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 Past Anesthesia/Blood Transfusion Reactions: No Reported Reaction Past Psychological History: Anxiety Smoking Status: Former smoker Past Alcohol Use History: None Reported Past Drug Use History: None Reported - Past Family History Mother Family Medical History: Dementia Father Family Medical History: Myocardial Infarction ([place]) Additional Family Medical History / Comment(s): Father of a [place] at the age of 87yrs. <Bart Gardner - Last Filed: 09/11/20 21:17> General Exam General appearance: alert, in no apparent distress Head exam: Present: atraumatic, normocephalic, normal inspection Eye exam: Present: normal appearance, PERRL, EOMI. Absent: scleral icterus, conjunctival injection, periorbital swelling ENT exam: Present: normal exam, mucous membranes moist Neck exam: Present: normal inspection. Absent: tenderness, meningismus, lymphadenopathy Respiratory exam: Present: normal lung sounds bilaterally. Absent: respiratory distress, wheezes, rales, rhonchi, stridor Cardiovascular Exam: Present: regular rate, normal rhythm, normal heart sounds. Absent: systolic murmur, diastolic murmur, rubs, gallop, clicks GI/Abdominal exam: Present: soft, normal bowel sounds. Absent: distended, tenderness, guarding, rebound, rigid Extremities exam: Present: normal inspection, full ROM, normal capillary refill. Absent: tenderness, pedal edema, joint swelling, calf tenderness Back exam: Present: normal inspection Neurological exam: Present: alert, oriented X3, CN II-XII intact Psychiatric exam: Present: normal affect, normal mood Skin exam: Present: warm, dry, intact, normal color. Absent: rash <Hector Shoemaker - Last Filed: 09/12/20 02:14> Course <Hector Shoemaker - Last Filed: 09/12/20 02:14> Vital Signs 09/11/20 21:13 Temperature 97.7 F Pulse Rate 73 Respiratory 18 Rate Blood Pressure 163/76 O2 Sat by Pulse 92 L Oximetry - Reevaluation(s) Reevaluation #1: 09/12/20 02:13 Medical record is reviewed (Hector Shoemaker) Reevaluation #2: 09/12/20 02:13 No bleeding has been noted here in the ER (Hector Shoemaker) Reevaluation #3: 09/12/20 02:13 Spoke patient's regarding findings, patient is agreeable for admission (Hector Shoemaker) - Consultations Consultation #1: Spoke with SATYA to agrees to admit the patient (Hector Shoemaker) EKG Findings - EKG Comments: EKG Findings:: EKG shows atrial fibrillation 71 QRS 72 QTC 447 <Hector Shoemaker - Last Filed: 09/12/20 02:14> Medical Decision Making - Lab Data Result diagrams: 09/11/20 23:56 09/12/20 00:10 - Radiology Data Radiology results: report reviewed (Chest x-ray could be possibly concerning for coronavirus pneumonia), image reviewed <Hector Shoemaker - Last Filed: 09/12/20 02:14> - Medical Decision Making 80 female positive GI bleed bright red blood per rectum on blood thinners secondary to A. fib. We'll admit for observation (Hector Shoemaker) - Lab Data Lab Results 09/11/20 09/11/20 09/12/20 Range/Units 23:50 23:56 00:06 WBC 7.3 (3.8-10.6) k/uL RBC 4.64 (3.80-5.40) m/uL Hgb 14.4 (11.4-16.0) gm/dL Hct 41.5 (34.0-46.0) % MCV 89.4 (80.0-100.0) fL MCH 31.0 (25.0-35.0) pg MCHC 34.7 (31.0-37.0) g/dL RDW 13.6 (11.5-15.5) % Plt Count 269 (150-450) k/uL MPV 6.2 Neutrophils % 71 % Lymphocytes % 17 % Monocytes % 5 % Eosinophils % 5 % Basophils % 0 % Neutrophils # 5.2 (1.3-7.7) k/uL Lymphocytes # 1.3 (1.0-4.8) k/uL Monocytes # 0.4 (0-1.0) k/uL Eosinophils # 0.4 (0-0.7) k/uL Basophils # 0.0 (0-0.2) k/uL PT (9.0-12.0) sec INR (<1.2) APTT (22.0-30.0) sec Sodium (137-145) mmol/L Potassium (3.5-5.1) mmol/L Chloride (98-107) mmol/L Carbon Dioxide (22-30) mmol/L Anion Gap mmol/L BUN (7-17) mg/dL Creatinine (0.52-1.04) mg/dL Est GFR (CKD-EPI)AfAm (>60 ml/min/1.73 sqM) Est GFR (CKD-EPI)NonAf (>60 ml/min/1.73 sqM) Glucose (74-99) mg/dL Plasma Lactic Acid [place] (0.7-2.0) mmol/L Calcium (8.4-10.2) mg/dL Total Bilirubin (0.2-1.3) mg/dL AST (14-36) U/L ALT (4-34) U/L Alkaline Phosphatase (38-126) U/L Troponin I (0.000-0.034) ng/mL Total Protein (6.3-8.2) g/dL Albumin (3.5-5.0) g/dL Blood Type O Positive Blood Type Confirm O Positive Blood Type Recheck No Previous Record Bld Type Recheck Status CABO Indicated Antibody Screen NEGATIVE Spec Expiration Date 09/15/2020230509/12/20 09/12/20 09/12/20 Range/Units 00:10 00:10 00:10 WBC (3.8-10.6) k/uL RBC (3.80-5.40) m/uL Hgb (11.4-16.0) gm/dL Hct (34.0-46.0) % MCV (80.0-100.0) fL MCH (25.0-35.0) pg MCHC (31.0-37.0) g/dL RDW (11.5-15.5) % Plt Count (150-450) k/uL MPV Neutrophils % % Lymphocytes % % Monocytes % % Eosinophils % % Basophils % % Neutrophils # (1.3-7.7) k/uL Lymphocytes # (1.0-4.8) k/uL Monocytes # (0-1.0) k/uL Eosinophils # (0-0.7) k/uL Basophils # (0-0.2) k/uL PT 11.4 (9.0-12.0) sec INR 1.1 (<1.2) APTT 22.9 (22.0-30.0) sec Sodium 131 L (137-145) mmol/L Potassium 4.5 (3.5-5.1) mmol/L Chloride 97 L (98-107) mmol/L Carbon Dioxide 26 (22-30) mmol/L Anion Gap 8 mmol/L BUN 13 (7-17) mg/dL Creatinine 0.48 L (0.52-1.04) mg/dL Est GFR (CKD-EPI)AfAm >90 (>60 ml/min/1.73 sqM) Est GFR (CKD-EPI)NonAf >90 (>60 ml/min/1.73 sqM) Glucose 105 H (74-99) mg/dL Plasma Lactic Acid [place] 1.5 (0.7-2.0) mmol/L Calcium 9.8 (8.4-10.2) mg/dL Total Bilirubin 0.9 (0.2-1.3) mg/dL AST 35 (14-36) U/L ALT 14 (4-34) U/L Alkaline Phosphatase 80 (38-126) U/L Troponin I (0.000-0.034) ng/mL Total Protein 7.4 (6.3-8.2) g/dL Albumin 4.5 (3.5-5.0) g/dL Blood Type Blood Type Confirm Blood Type Recheck Bld Type Recheck Status Antibody Screen Spec Expiration Date 09/12/20 Range/Units 00:10 WBC (3.8-10.6) k/uL RBC (3.80-5.40) m/uL Hgb (11.4-16.0) gm/dL Hct (34.0-46.0) % MCV (80.0-100.0) fL MCH (25.0-35.0) pg MCHC (31.0-37.0) g/dL RDW (11.5-15.5) % Plt Count (150-450) k/uL MPV Neutrophils % % Lymphocytes % % Monocytes % % Eosinophils % % Basophils % % Neutrophils # (1.3-7.7) k/uL Lymphocytes # (1.0-4.8) k/uL Monocytes # (0-1.0) k/uL Eosinophils # (0-0.7) k/uL Basophils # (0-0.2) k/uL PT (9.0-12.0) sec INR (<1.2) APTT (22.0-30.0) sec Sodium (137-145) mmol/L Potassium (3.5-5.1) mmol/L Chloride (98-107) mmol/L Carbon Dioxide (22-30) mmol/L Anion Gap mmol/L BUN (7-17) mg/dL Creatinine (0.52-1.04) mg/dL Est GFR (CKD-EPI)AfAm (>60 ml/min/1.73 sqM) Est GFR (CKD-EPI)NonAf (>60 ml/min/1.73 sqM) Glucose (74-99) mg/dL Plasma Lactic Acid [place] (0.7-2.0) mmol/L Calcium (8.4-10.2) mg/dL Total Bilirubin (0.2-1.3) mg/dL AST (14-36) U/L ALT (4-34) U/L Alkaline Phosphatase (38-126) U/L Troponin I 0.018 (0.000-0.034) ng/mL Total Protein (6.3-8.2) g/dL Albumin (3.5-5.0) g/dL Blood Type Blood Type Confirm Blood Type Recheck Bld Type Recheck Status Antibody Screen Spec Expiration Date Disposition <Bart Gardner - Last Filed: 09/11/20 21:17> Is patient prescribed a controlled substance at d/c from ED?: No <Hector Shoemaker - Last Filed: 09/12/20 02:14> Clinical Impression: Hyponatremia, Gastrointestinal hemorrhage Disposition: ADMITTED IP TO THIS HOSP Condition: Fair
[2020-09-11] MEDS ORDERED: SODIUM CHLORIDE 0.9% 1,000 ML IV STA (23:57)
[2020-09-11] MEDS ORDERED: SODIUM CHLORIDE 0.9% 500 ML 500 ML IV STA (23:57)
[2020-09-12 00:25] LABS: Basophils % (A) 0 %; Eosinophils # (A) 0.4 k/uL (0-0.7); Eosinophils % (A) 5 %; HCT 41.5 % (34.0-46.0); HGB 14.4 gm/dL (11.4-16.0); Lymphocytes # (A) 1.3 k/uL (1.0-4.8); Lymphocytes % (A) 17 %; MCHC 34.7 g/dL (31.0-37.0); MCV 89.4 fL (80.0-100.0); Mean Platelet Volume 6.2; Monocytes # (A) 0.4 k/uL (0-1.0); Monocytes % (A) 5 %; Neutrophils # (A) 5.2 k/uL (1.3-7.7); Neutrophils % (A) 71 %; Platelet Count 269 k/uL (150-450); RBC 4.64 m/uL (3.80-5.40); RDW 13.6 % (11.5-15.5); WBC 7.3 k/uL (3.8-10.6)
[2020-09-12 00:40] LABS: INR 1.1 (<1.2); Partial Thromboplastin Time 22.9 sec (22.0-30.0); Prothrombin Time 11.4 sec (9.0-12.0)
[2020-09-12 00:42] LABS: ALT 14 U/L (4-34); AST 35 U/L (14-36); African American GFR (CKD) >90 (>60 ml/min/1.73 sqM); Albumin 4.5 g/dL (3.5-5.0); Alkaline Phosphatase 80 U/L (38-126); Anion Gap 8 mmol/L; Blood Urea Nitrogen 13 mg/dL (7-17); Calcium 9.8 mg/dL (8.4-10.2); Carbon Dioxide 26 mmol/L (22-30); Chloride 97 mmol/L (98-107); Glucose 105 mg/dL (74-99); Non-African American GFR(CKD) >90 (>60 ml/min/1.73 sqM); Sodium 131 mmol/L (137-145); Total Bilirubin 0.9 mg/dL (0.2-1.3); Total Protein 7.4 g/dL (6.3-8.2)
[2020-09-12 00:44] LABS: Potassium 4.5 mmol/L (3.5-5.1)
[2020-09-12] MEDS ORDERED: NALOXONE 0.4 MG/ML 1 ML VIAL IV PRN (01:24)
[2020-09-12] MEDS ORDERED: MORPHINE SULFATE 4 MG/ML SYRINGE IV PRN (01:24)
[2020-09-12] MEDS ORDERED: ONDANSETRON 4 MG/2 ML VIAL IVP PRN (01:24)
[2020-09-12] MEDS ORDERED: SODIUM CHLORIDE 0.9% 1,000 ML IV SCH (01:30)
--- NOTE | 2020-09-12 01:47 | XR ---
EXAM: XR Chest, 2 Views CLINICAL HISTORY: ITS.REASON XR Reason: pain TECHNIQUE: Frontal and lateral views of the chest. COMPARISON: No relevant prior studies available. FINDINGS: Lungs: Subtle diffuse airspace opacities which may be inflammatory or infectious. Pleural space: Unremarkable. Heart: Heart is enlarged. Mediastinum: Unremarkable. Bones/joints: Left shoulder arthroplasty. Degenerative to the right shoulder. IMPRESSION: Subtle diffuse airspace opacities which may be inflammatory or infectious.
[2020-09-12] MEDS: TRIAMCINOLONE ACET 0.1% OINTMENT 15 GM TUBE TOPICAL SCH ×2 (09:31→21:10)
[2020-09-12] MEDS: METOPROLOL SUCCINATE (ER) 100 MG TAB.ER.24H PO SCH (09:31)
[2020-09-12] MEDS: PANTOPRAZOLE 40 MG/10 ML VIAL IVP SCH (09:31)
[2020-09-12] MEDS ORDERED: traMADol-ACETAMINOP 37.5-325MG 1 EACH TAB PO PRN ×2 (10:05)
[2020-09-12] MEDS ORDERED: MELATONIN 5 MG TABLET PO PRN (10:05)
[2020-09-12 12:01] VITALS: RESP 16
[2020-09-12] MEDS: IOPAMIDOL CONTRAST (ORAL USE) VIAL PO PRN ×2 (12:50→13:53)
[2020-09-12] MEDS: ACETAMINOPHEN TAB 500 MG TAB PO PRN (12:56)
--- NOTE | 2020-09-12 13:25 | P.CONS ---
History of Present Illness - Reason for Consult Consult date: 09/12/20 GI bleed, blood per rectum Requesting physician: Ivy Cannon - Chief Complaint Blood per rectum - History of Present Illness 80-year-old female with a medical history significant for atrial fibrillation, NUBIA, hypertension, osteoarthritis and diverticulosis with prior hospitalizations or diverticular bleeding who presented to the hospital due to concerns over blood per rectum. The patient reports persistent diarrhea for 3 weeks. Subsequently she developed painless bright red blood per rectum. She denies any cramping or dark-colored stool. She reports bright blood mixed with the stool approximate 4 episodes yesterday and 2 today. No history of hemorrhoids but the patient does have a history of diverticular bleeding. Her last colonoscopy was in 2014 at which time she reports being on Pradaxa and presented to [facility] for complaints of blood per rectum. She had a colonoscopy at that time with no source of bleeding noted but presumed bleeding from diverticulosis. She denies any anticoagulation therapy at this time. She does report that bowel movements have become darker in color. On presentation patient was found to have a hemoglobin of 14.4 with a WBC of 7.3, platelet count 269,000, total bilirubin 0.9, alkaline phosphatase 80, AST 35 and ALT 14. She does take Mobic and aspirin therapy. Review of Systems REVIEW OF SYSTEMS: CONSTITUTIONAL: Denies any fevers, chills, weight change or fatigue. CARDIOVASCULAR: Denies any chest pain, palpitations high or low blood pressures RESPIRATORY: Denies any shortness of breath, hemoptysis or cough. GENITOURINARY: No dysuria or hematuria. MUSCULOSKELETAL: No weakness reported. SKIN: Denies any new rashes or lesions, jaundice or pallor. PSYCHIATRIC: Denies any depression or anxiety. NEUROLOGY: Denies headache, denies any new focal deficits. EARS/NOSE/THROAT: No recent hearing change, congestion, nasal discharge or sore throat. EYES: No pain in eyes, discharge or change in vision. GASTROINTESTINAL: As per HPI. Past Medical History Past Medical History: Atrial Fibrillation, Hypertension, Osteoarthritis (OA), Sleep Apnea/CPAP/BIPAP Additional Past Medical History / Comment(s): [facility] [place] AFTER 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 Past Anesthesia/Blood Transfusion Reactions: No Reported Reaction Past Psychological History: Anxiety Additional Psychological History / Comment(s): Pt states she and her spouse moved recently from [place] to their farm in [place]. She uses a cane to ambulate. The house is 2 story but she can stay on the first floor. There are several steps to get into the home. She can drive. She has a Cpap and nebulizer. Smoking Status: Former smoker Past Alcohol Use History: None Reported Additional Past Alcohol Use History / Comment(s): started smoking in 1958,quit 1963 Past Drug Use History: None Reported - Past Family History Mother Family Medical History: Dementia Father Family Medical History: Myocardial Infarction ([place]) Additional Family Medical History / Comment(s): Father of a [place] at the age of 87yrs. Medications and Allergies Home Medications Medication Instructions Recorded Confirmed Type Furosemide [Lasix] 40 mg PO DAILY 11/30/15 09/11/20 History Lansoprazole 30 mg PO DAILY 11/30/15 09/11/20 History Potassium Chloride [Klor-Con 20] 20 meq PO BID 11/30/15 09/11/20 History traMADol HCL/ACETAMINOPHEN 1 tab PO QAM 11/30/15 09/11/20 History [Ultracet 37.5-325] Aspirin [Adult Low Dose Aspirin EC] 81 mg PO DAILY 05/10/20 09/11/20 History Cholecalciferol [Vitamin D3 (25 1,000 unit PO DAILY 05/10/20 09/11/20 History Mcg = 1000 Iu)] Meloxicam [Mobic] 7.5 mg PO DAILY 05/10/20 09/11/20 History Multivitamins, Thera [Multivitamin 1 tab PO DAILY 05/10/20 09/11/20 History (formulary)] traMADol-ACETAMINOP 37.5-325MG 0.5 mg PO HS 05/10/20 09/11/20 History [Ultracet] Ascorbic Acid [Vitamin C] 500 mg PO DAILY tab 05/17/20 09/11/20 Rx Zinc Sulfate [Orazinc] 220 mg PO DAILY cap 05/17/20 09/11/20 Rx Albuterol Inhaler [Ventolin Hfa 1 puff INHALATION RT-QID PRN 09/11/20 09/11/20 History Inhaler] Biotin 10,000 mcg PO DAILY 09/11/20 09/11/20 History Magnesium Oxide 400 mg PO DAILY 09/11/20 09/11/20 History Melatonin 5 mg PO HS PRN 09/11/20 09/11/20 History Metoprolol Succinate (ER) [Toprol 100 mg PO DAILY 09/11/20 09/11/20 History Xl] Triamcinolone 0.1% Ointment 1 applic TOPICAL BID 09/11/20 09/11/20 History [Kenalog 0.1% Ointment] Allergies Allergy/AdvReac Type Severity Reaction Status Date / Time KAREN Inhibitors Allergy Unknown Verified 09/11/20 23:40 Penicillins Allergy Rash/Hives Verified 09/11/20 23:40 Sulfa (Sulfonamide Allergy Rash/Hives Verified 09/11/20 23:40 Antibiotics) Physical Exam Vitals: Vital Signs Temp Pulse Pulse Resp BP BP Pulse Ox 09/12/20 12:00 97.6 F 69 16 141/78 94 L 09/12/20 05:38 97.9 F 63 18 132/63 94 L 09/11/20 21:13 97.7 F 73 18 163/76 92 L Intake and Output 09/11/20 09/12/20 09/12/20 22:59 06:59 14:59 Other: # Voids 1 Weight 90.718 kg 90.718 kg On physical examination, patient appears comfortable in no apparent distress. HEAD: Normocephalic, atraumatic. EYES: No scleral icterus. No conjunctival injection. MOUTH: No lesions, tongue midline. NECK: Trachea midline, no gross abnormalities. CHEST: Decreased air entry in all shi. HEART: S1-S2 appreciated. ABDOMEN: Soft, obese and nontender. Bowel sounds are positive. No organomegaly. No guarding or rigidity. EXTREMITIES: No pedal edema. SKIN: No rashes, no jaundice. NEUROLOGIC: Alert and oriented x3. No focal deficits. Results CBC & Chem 7: 09/11/20 23:56 09/12/20 00:10 Labs: Abnormal Lab Results - Last 24 Hours (Table) 09/12/20 Range/Units 00:10 Sodium 131 L (137-145) mmol/L Chloride 97 L (98-107) mmol/L Creatinine 0.48 L (0.52-1.04) mg/dL Glucose 105 H (74-99) mg/dL Chest x-ray: report reviewed Assessment and Plan (1) Gastrointestinal hemorrhage Narrative/Plan: 80-year-old female with multiple medical comorbidities including a history of diverticulosis presenting to the hospital for blood per rectum. Multiple episodes of bright red blood per rectum after having some loose bowel movements. No pain reported. Prior episode of diverticular bleed in 2014 or 2015 at [facility] when the patient was on anticoagulation therapy for atrial fibrillation. The patient had her last colonoscopy at that time with no source of bleeding noted but diverticula noted. Unclear if symptoms are related to diverticular bleed, hemorrhoidal bleeding, ulcer, or other etiology. Current Visit: Yes Status: Acute Code(s): K92.2 - GASTROINTESTINAL HEMORRHAGE, UNSPECIFIED SNOMED Code(s): 56705263 (2) Diverticulosis Current Visit: Yes Status: Acute Code(s): K57.90 - DVRTCLOS OF INTEST, PART UNSP, W/O PERF OR ABSCESS W/O BLEED SNOMED Code(s): 011348697 Plan: Supportive care Clear liquid diet Continue to monitor hemoglobin and hematocrit churches as needed Cold any anticoagulation or antiplatelet therapy at this time Continue to monitor stool output Stool studies ordered given patient's reports of diarrhea over the past few weeks Computed tomography scan of the abdomen ordered for further evaluation Extensive discussion with the patient regarding symptoms, at this time we'll proceed with conservative medical management as patient is not interested in colonoscopy, however if further bleeding or precipitous fall in hemoglobin we'll reevaluate at that time Thank you for allowing us to participate in the care of the patient
--- NOTE | 2020-09-12 13:36 | P.HPIM ---
History of Present Illness 78-year-old pleasant female came in with complaints of bright red blood per rectum and multiple the bowel movements about 4 episodes yesterday and 2 episodes today. Patient denied any fever chills patient had any significant abdominal pain. Patient denied nausea vomiting. Patient had history of diverticular bleed in 2014. Patient last colonoscopy was back then. At that time patient was on anticoagulation which was discontinued. Patient is presently on aspirin. Patient denied any shortness of breath fever chills hemoglobin is fairly well around the 14 and hemoglobin is expected to drop it tomorrow or day after. Patient does take Mobic and aspirin Review of Systems REVIEW OF SYSTEMS: CONSTITUTIONAL: No fever, no malaise, no fatigue. HEENT: No recent visual problems or hearing problems. Denied any sore throat. CARDIOVASCULAR: No chest pain, orthopnea, PND, no palpitations, no syncope. PULMONARY: No shortness of breath, no cough, no hemoptysis. GASTROINTESTINAL: \ no nausea, no vomiting, no abdominal pain. NEUROLOGICAL: No headaches, no weakness, no numbness. HEMATOLOGICAL: Denies any bleeding or petechiae. GENITOURINARY: Denies any burning micturition, frequency, or urgency. MUSCULOSKELETAL/RHEUMATOLOGICAL: Denies any joint pain, swelling, or any muscle pain. ENDOCRINE: Denies any polyuria or polydipsia. The rest of the 14-point review of systems is negative. Past Medical History Past Medical History: Atrial Fibrillation, Hypertension, Osteoarthritis (OA), Sleep Apnea/CPAP/BIPAP Additional Past Medical History / Comment(s): [facility] [place] [facility] AFTER 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 Past Anesthesia/Blood Transfusion Reactions: No Reported Reaction Past Psychological History: Anxiety Additional Psychological History / Comment(s): Pt states she and her spouse moved recently from [place] to their farm in [place]. She uses a cane to ambulate. The house is 2 story but she can stay on the first floor. There are several steps to get into the home. She can drive. She has a Cpap and nebulizer. Smoking Status: Former smoker Past Alcohol Use History: None Reported Additional Past Alcohol Use History / Comment(s): started smoking in 1958,quit 1963 Past Drug Use History: None Reported - Past Family History Mother Family Medical History: Dementia Father Family Medical History: Myocardial Infarction (ND) Additional Family Medical History / Comment(s): Father of a ND at the age of 87yrs. Medications and Allergies Home Medications Medication Instructions Recorded Confirmed Type Furosemide [Lasix] 40 mg PO DAILY 11/30/15 09/11/20 History Lansoprazole 30 mg PO DAILY 11/30/15 09/11/20 History Potassium Chloride [Klor-Con 20] 20 meq PO BID 11/30/15 09/11/20 History traMADol HCL/ACETAMINOPHEN 1 tab PO QAM 11/30/15 09/11/20 History [Ultracet 37.5-325] Aspirin [Adult Low Dose Aspirin EC] 81 mg PO DAILY 05/10/20 09/11/20 History Cholecalciferol [Vitamin D3 (25 1,000 unit PO DAILY 05/10/20 09/11/20 History Mcg = 1000 Iu)] Meloxicam [Mobic] 7.5 mg PO DAILY 05/10/20 09/11/20 History Multivitamins, Thera [Multivitamin 1 tab PO DAILY 05/10/20 09/11/20 History (formulary)] traMADol-ACETAMINOP 37.5-325MG 0.5 mg PO HS 05/10/20 09/11/20 History [Ultracet] Ascorbic Acid [Vitamin C] 500 mg PO DAILY tab 05/17/20 09/11/20 Rx Zinc Sulfate [Orazinc] 220 mg PO DAILY cap 05/17/20 09/11/20 Rx Albuterol Inhaler [Ventolin Hfa 1 puff INHALATION RT-QID PRN 09/11/20 09/11/20 History Inhaler] Biotin 10,000 mcg PO DAILY 09/11/20 09/11/20 History Magnesium Oxide 400 mg PO DAILY 09/11/20 09/11/20 History Melatonin 5 mg PO HS PRN 09/11/20 09/11/20 History Metoprolol Succinate (ER) [Toprol 100 mg PO DAILY 09/11/20 09/11/20 History Xl] Triamcinolone 0.1% Ointment 1 applic TOPICAL BID 09/11/20 09/11/20 History [Kenalog 0.1% Ointment] Allergies Allergy/AdvReac Type Severity Reaction Status Date / Time KAREN Inhibitors Allergy Unknown Verified 09/11/20 23:40 Penicillins Allergy Rash/Hives Verified 09/11/20 23:40 Sulfa (Sulfonamide Allergy Rash/Hives Verified 09/11/20 23:40 Antibiotics) Physical Exam Vitals: Vital Signs Temp Pulse Pulse Resp BP BP Pulse Ox 09/12/20 12:00 97.6 F 69 16 141/78 94 L 09/12/20 05:38 97.9 F 63 18 132/63 94 L 09/11/20 21:13 97.7 F 73 18 163/76 92 L Intake and Output 09/11/20 09/12/20 09/12/20 22:59 06:59 14:59 Other: # Voids 1 Weight 90.718 kg 90.718 kg PHYSICAL EXAMINATION: GENERAL: The patient is alert and oriented x3, not in any acute distress. Well developed, well nourished. HEENT: Pupils are round and equally reacting to light. EOMI. No scleral icterus. No conjunctival pallor. Normocephalic, atraumatic. No pharyngeal erythema. No thyromegaly. CARDIOVASCULAR: S1 and S2 present. No murmurs, rubs, or gallops. PULMONARY: Chest is clear to auscultation, no wheezing or crackles. ABDOMEN: Soft, nontender, nondistended, normoactive bowel sounds. No palpable organomegaly. MUSCULOSKELETAL: No joint swelling or deformity. EXTREMITIES: No cyanosis, clubbing, or pedal edema. NEUROLOGICAL: Gross neurological examination did not reveal any focal deficits. SKIN: No rashes. Results CBC & Chem 7: 09/11/20 23:56 09/12/20 00:10 Labs: Abnormal Lab Results - Last 24 Hours (Table) 09/12/20 Range/Units 00:10 Sodium 131 L (137-145) mmol/L Chloride 97 L (98-107) mmol/L Creatinine 0.48 L (0.52-1.04) mg/dL Glucose 105 H (74-99) mg/dL Thrombosis Risk Factor Assmnt - Choose All That Apply Each Factor Represents 1 point: Abnormal pulmonary function (COPD) Each Risk Factor Represents 3 Points: Age 75 years or older Thrombosis Risk Factor Assessment Total Risk Factor Score: 4 Thrombosis Risk Factor Assessment Level: Moderate Risk Assessment and Plan Plan: -Acute lower GI bleed: Most probably diverticular bleed gastroenterology evaluated the patient as the patient is not too keen and getting colonoscopy they wanted to monitor if she continues to have bleeding at the time patient will need endoscopic intervention -Atrial fibrillation proximal A. fib presently not on anticoagulation because of her previous GI bleed patient is in aspirin will which will be held as well because of the active GI bleed - hypertension -Sleep apnea uses CPAP machine at home
[2020-09-12] MEDS: SODIUM CHLORIDE 0.9% 1,000 ML IV SCH (13:54)
--- NOTE | 2020-09-12 17:10 | CT ---
EXAMINATION TYPE: CT abdomen pelvis w con DATE OF EXAM: 09/12/2020 COMPARISON: None INDICATION: GI bleed DLP: 1815.7 mGycm, Automated exposure control for dose reduction was used. CONTRAST: 100 mL of Isovue 300. Study performed with Oral Contrast TECHNIQUE: Axial images were obtained from above the diaphragm to the pubic rami in the axial plane a t 5 mm thick sections. Reconstructed images are reviewed on the computer in the coronal plane. FINDINGS: Limited CT sections are obtained the lung bases. Mild linear infiltrate is through the right lung ba se. This could be related atelectasis. Cardiomegaly is present. Coronary artery calcification is pres ent.. Small hiatal hernia. CT ABDOMEN: Liver: There is a 2.7 cm cyst measuring 2 Hounsfield units in the right lobe liver. Spleen: Normal Pancreas: Normal Adrenal glands: The adrenal glands are normal. Gallbladder: Normal Kidneys: There is malrotation of the left kidney. No masses are evident. No hydronephrosis is present . There is a 1.3 cm cyst on the inferior left kidney [facility], which remain unremarkable. Aorta: Vascular calcification is within the aorta. Inferior vena cava: Normal. CT PELVIS: Diverticular changes are within the transverse colon. Scattered diverticuli within the sigmoid colon and in the distal descending colon. No suspicious diverticulitis is evident. There are loops of bowel which are incompletely distended or lack oral contrast limiting their evaluation. Appendix: Contains contrast and is Normal as visualized. Urinary bladder: Normal. Genitourinary structures: Uterus and adnexa appear normal. Osseous structures: No suspicious lytic or sclerotic lesions. Postsurgical changes are through the xi mbar spine degenerative disc changes are within the lower thoracic spine. IMPRESSIONS: 1. Diverticulosis without acute diverticulitis. 2. Probable atelectasis or mild infiltrate in right lower lobe.
[2020-09-12] MEDS: ALBUTEROL HFA INHALER INHALATION PRN ×2 (17:11→20:51)
[2020-09-12] MEDS: HYDROCORTISONE 2.5% RECTAL CREAM 30 GM TUBE RECTAL SCH (21:23)
[2020-09-13] MEDS: SODIUM CHLORIDE 0.9% 1,000 ML IV SCH (02:07)
[2020-09-13] MEDS: ALBUTEROL HFA INHALER INHALATION PRN ×3 (08:43→16:53)
[2020-09-13 09:38] LABS: HCT 36.8 % (37.2-46.3); MCH 29.4 pg (27.0-32.0); MCHC 32.6 g/dL (32.0-37.0); MCV 90.2 fL (80.0-97.0); Mean Platelet Volume 8.4 fL (9.5-12.2); Platelet Count 190 X 10*3/uL (140-440); RBC 4.08 X 10*6/uL (4.10-5.20); RDW 13.6 % (11.5-14.5); WBC 5.24 X 10*3/uL (4.50-10.00)
[2020-09-13] MEDS: MULTIVITAMINS, THERA 1 EACH TAB PO SCH (09:40)
[2020-09-13] MEDS: PANTOPRAZOLE 40 MG/10 ML VIAL IVP SCH (09:40)
[2020-09-13] MEDS: ASCORBIC ACID 500 MG TAB PO SCH (09:40)
[2020-09-13] MEDS: TRIAMCINOLONE ACET 0.1% OINTMENT 15 GM TUBE TOPICAL SCH ×2 (09:40→20:21)
[2020-09-13] MEDS: CHOLECALCIFEROL 25 MCG (1000 IU) TABLET PO SCH (09:40)
[2020-09-13] MEDS: MAGNESIUM OXIDE 400 MG TAB PO SCH (09:40)
[2020-09-13] MEDS: HYDROCORTISONE 2.5% RECTAL CREAM 30 GM TUBE RECTAL SCH ×2 (09:40→20:18)
[2020-09-13 09:41] LABS: African American GFR (CKD) >90 (>60 ml/min/1.73 sqM); Anion Gap 7 mmol/L; Blood Urea Nitrogen 7 mg/dL (7-17); Calcium 9.1 mg/dL (8.4-10.2); Carbon Dioxide 24 mmol/L (22-30); Chloride 98 mmol/L (98-107); Glucose 93 mg/dL (74-99); Magnesium 1.7 mg/dL (1.6-2.3); Non-African American GFR(CKD) >90 (>60 ml/min/1.73 sqM); Potassium 3.8 mmol/L (3.5-5.1); Sodium 129 mmol/L (137-145)
[2020-09-13] MEDS: METOPROLOL SUCCINATE (ER) 100 MG TAB.ER.24H PO SCH (12:52)
--- NOTE | 2020-09-13 14:35 | P.PN ---
Subjective Progress Note Date: 09/13/20 Principal diagnosis: Gastro-intestinal bleed Was seen and examined sitting up in her bed. She is on a clear liquid diet and tolerating well. She ordered to bowel movements yesterday evening that she noted as watery, with some pink tinge. Today she had a few small blood clots with bowel movement. No further episodes of bleeding since. Denies any abdominal pain, abdominal cramping, nausea, or vomiting. Patient underwent CT of abdomen and pelvis which showed diverticulosis without acute diverticulitis. Probable atelectasis or mild infiltrate in the right lower lobe. Objective - Vital Signs Vital signs: Vital Signs Temp 98.2 F 09/13/20 05:00 Pulse 77 09/13/20 05:00 Resp 16 09/13/20 05:00 BP 126/66 09/13/20 05:00 Pulse Ox 91 L 09/13/20 05:00 Intake & Output 09/12/20 09/13/20 09/13/20 18:59 06:59 18:59 Intake Total 2220 590 Balance 2220 590 Intake: Intake, IV Titration 900 Amount Sodium Chloride 0.9% 1, 900 000 ml @ 75 mls/hr IV . [id number] [facility] Rx#:[id number] Oral 1320 590 Other: Voiding Method Toilet # Voids 5 4 2 - Exam General appearance: The patient is alert, oriented, appears in no acute distress. Obese. HET: Head is normocephalic and atraumatic. Conjunctiva pink. Sclera anicteric. Neck: Supple without lymphadenopathy. Abdomen: Soft, obese, nontender, nondistended with bowel sounds. No guarding or rigidity. Extremities: Normal skin color and turgor. No pedal edema Skin: No rashes, no jaundice Neurological: No focal deficits. Alert and oriented 3. - Labs CBC & Chem 7: 09/13/20 04:25 09/13/20 04:25 Labs: Microbiology - Last 24 Hours (Table) 09/12/20 13:52 Stool Culture - Preliminary Stool Assessment and Plan (1) Gastrointestinal hemorrhage Narrative/Plan: 80-year-old female with multiple medical comorbidities including a history of diverticulosis presenting to the hospital for blood per rectum. Multiple episodes of bright red blood per rectum after having some loose bowel movements. No pain reported. Prior episode of diverticular bleed in 2015 or 2016 at [facility] when the patient was on anticoagulation therapy for atrial fibrillation. The patient had her last colonoscopy at that time with no source of bleeding noted but diverticula noted. Unclear if symptoms are related to diverticular bleed, hemorrhoidal bleeding, ulcer, or other etiology. CT of abdomen and pelvis ordered, Showing diverticulosis without acute diverticulitis. Probable atelectasis or mild infiltrate in right lower lobe. Current Visit: Yes Status: Acute Code(s): K92.2 - GASTROINTESTINAL HEMORR VEENA, UNSPECIFIED SNOMED Code(s): 17585866 (2) Diverticulosis Current Visit: Yes Status: Acute Code(s): K57.90 - DVRTCLOS OF INTEST, PART UNSP, W/O PERF OR ABSCESS W/O BLEED SNOMED Code(s): 821917062 Plan: Supportive care Advance to full liquid diet Continue to monitor hemoglobin and hematocrit churches as needed Hold any anticoagulation or antiplatelet therapy at this time Continue to monitor stool output Stool studies ordered given patient's reports of diarrhea over the past few weeks Computed tomography scan of the abdomen ordered and reviewed Extensive discussion with the patient regarding symptoms, at this time we'll proceed with conservative medical management as patient is not interested in colonoscopy, however if further bleeding or precipitous fall in hemoglobin we'll reevaluate at that time Thank you for allowing us to participate in the care of the patient Dr. José Miguel Thomas I agree with the dictator's note, documented as a scribe by Evon Agustin.
--- NOTE | 2020-09-13 14:40 | P.PN ---
Subjective Progress Note Date: 09/13/20 78-year-old pleasant female came in with complaints of bright red blood per rectum and multiple the bowel movements about 4 episodes yesterday and 2 episodes today. Patient denied any fever chills patient had any significant abdominal pain. Patient denied nausea vomiting. Patient had history of diverti cular bleed in 2014. Patient last colonoscopy was back then. At that time patient was on anticoagulation which was discontinued. Patient is presently on aspirin. Patient denied any shortness of breath fever chills hemoglobin is fairly well around the 14 and hemoglobin is expected to drop it tomorrow or day after. Patient does take Mobic and aspirin 09/13/2020 Patient is seen and evaluated this morning and follow-up and per the patient had 2 bowel movements today with 2 golf ball size clots noted in the stool. Hemoglobin is 12. GI following recommending no endoscopic intervention at this time unless bleeding persists or worsens. Patient denies any abdominal discomfort and was maintaining clear liquids with no nausea or vomiting noted. Diet is being advanced to full liquids and will continue to monitor for tolerance and repeat a.m. labs. Patient appears to be slightly short of breath and is laying flat and discussed with the patient about sitting up. Patient also mentioned that she does wear CPAP at night and is having family bring the device in. Will order chest x-ray and incentive spirometer has been ordered. Review of systems: Constitutional: No reports of fatigue, fever, or chills Cardiovascular: No reports of chest pain or palpitations Respiratory: Occasional shortness of breath GI: No reports of nausea, vomiting, or diarrhea : No reports of dysuria or retention Neurovascular: No reports of weakness or numbness All medications have been reviewed Objective - Vital Signs Vital signs: Vital Signs Temp 98.2 F 09/13/20 05:00 Pulse 77 09/13/20 05:00 Resp 16 09/13/20 05:00 BP 126/66 09/13/20 05:00 Pulse Ox 91 L 09/13/20 05:00 Intake & Output 09/12/20 09/13/20 09/13/20 18:59 06:59 18:59 Intake Total 2220 590 Balance 2220 590 Intake: Intake, IV Titration 900 Amount Sodium Chloride 0.9% 1, 900 000 ml @ 75 mls/hr IV . [id number] [facility] Rx#:[id number] Oral 1320 590 Other: Voiding Method Toilet # Voids 5 4 2 - Exam GENERAL: The patient is alert and oriented x3, not in any acute distress. Well developed, well nourished. HEENT: Pupils are round and equally reacting to light. EOMI. No scleral icterus. No conjunctival pallor. Normocephalic, atraumatic. No pharyngeal erythema. No thyromegaly. CARDIOVASCULAR: S1 and S2 present. No murmurs, rubs, or gallops. PULMONARY: diminished breath sounds bilaterally otherwise Chest is clear to auscultation, no wheezing or crackles. ABDOMEN: Soft, nontender, nondistended, normoactive bowel sounds. No palpable organomegaly. MUSCULOSKELETAL: No joint swelling or deformity. EXTREMITIES: No cyanosis, clubbing, or pedal edema. NEUROLOGICAL: Gross neurological examination did not reveal any focal deficits. SKIN: No rashes. - Labs CBC & Chem 7: 09/13/20 04:25 09/13/20 04:25 Labs: Microbiology - Last 24 Hours (Table) 09/12/20 13:52 Stool Culture - Preliminary Stool Assessment and Plan Assessment: -Acute lower GI bleed: Most probably diverticular bleed. GI following. patient is not too keen and getting colonoscopy they wanted to monitor if she continues to have bleeding at the time patient will need endoscopic intervention -Atrial fibrillation proximal A. fib presently not on anticoagulation because of her previous GI bleed patient is on aspirin will which will be held as well because of the active GI bleed - hypertension -Sleep apnea uses CPAP machine at home Plan: Diet is being advanced to full liquids and will monitor for tolerance. Hemoglobin is 12 today and will repeat a.m. labs and discussed with the patient about making nursing staff aware if having any further episodes of blood in the stool. Patient did note to golf ball size clots in the stool this morning. Patient's family is also bringing in CPAP machine as she appears to be short of breath when lying and oxygen saturations were in the low 90s during the night. Will get a chest x-ray. Possible discharge in 24 hours.
--- NOTE | 2020-09-13 15:12 | XR ---
EXAMINATION TYPE: XR chest 1V portable DATE OF EXAM: 09/13/2020 COMPARISON: 09/12/2020 HISTORY: Shortness of breath TECHNIQUE: Single frontal view of the chest is obtained. FINDINGS: Diffuse osteopenia with arthropathy of the right shoulder and postsurgical change left michelle ulder. Heart is globally enlarged and there is a coarsened interstitium but no pneumothorax. Subsegme ntal areas of consolidation involving the right perihilar and lower lobe regions are stable.. No siza ble pleural effusion. IMPRESSION: 1. Severe cardiomegaly 2. Coarsened interstitium can be seen with interstitial pneumonitis or chronic interstitial lung dise ase, bronchitis. 3. Subsegmental areas of consolidation involving the perihilar and lower lobes are stable relative to the prior exam.
[2020-09-13] MEDS: ACETAMINOPHEN TAB 500 MG TAB PO PRN (16:42)
[2020-09-14 09:15] LABS: HCT 39.5 % (34.0-46.0); HGB 13.2 gm/dL (11.4-16.0); MCH 29.6 pg (25.0-35.0); MCHC 33.3 g/dL (31.0-37.0); MCV 88.9 fL (80.0-100.0); Mean Platelet Volume 6.5; Platelet Count 206 k/uL (150-450); RBC 4.44 m/uL (3.80-5.40); RDW 14.1 % (11.5-15.5); WBC 4.9 k/uL (3.8-10.6)
[2020-09-14 09:38] LABS: African American GFR (CKD) >90 (>60 ml/min/1.73 sqM); Anion Gap 9 mmol/L; Blood Urea Nitrogen 4 mg/dL (7-17); Calcium 9.6 mg/dL (8.4-10.2); Carbon Dioxide 26 mmol/L (22-30); Chloride 96 mmol/L (98-107); Glucose 98 mg/dL (74-99); Non-African American GFR(CKD) >90 (>60 ml/min/1.73 sqM); Potassium 4.2 mmol/L (3.5-5.1); Sodium 131 mmol/L (137-145)
[2020-09-14] MEDS: SODIUM CHLORIDE 0.9% 1,000 ML IV SCH (10:18)
[2020-09-14] MEDS: ALBUTEROL HFA INHALER INHALATION PRN (10:51)
[2020-09-14] MEDS: PANTOPRAZOLE 40 MG/10 ML VIAL IVP SCH (10:55)
[2020-09-14] MEDS: METOPROLOL SUCCINATE (ER) 100 MG TAB.ER.24H PO SCH (10:55)
[2020-09-14] MEDS: MULTIVITAMINS, THERA 1 EACH TAB PO SCH (10:55)
[2020-09-14] MEDS: MAGNESIUM OXIDE 400 MG TAB PO SCH (10:55)
[2020-09-14] MEDS: ASCORBIC ACID 500 MG TAB PO SCH (10:55)
[2020-09-14] MEDS: CHOLECALCIFEROL 25 MCG (1000 IU) TABLET PO SCH (10:55)
[2020-09-14] MEDS: TRIAMCINOLONE ACET 0.1% OINTMENT 15 GM TUBE TOPICAL SCH (10:56)
[2020-09-14] MEDS: HYDROCORTISONE 2.5% RECTAL CREAM 30 GM TUBE RECTAL SCH (11:01)
[2020-09-14 12:20] VITALS: BP 125/76; PULSE 66; TEMP 97.7
--- NOTE | 2020-09-14 12:39 | P.DS ---
Providers Date of admission: 09/12/20 01:24 Expected date of discharge: 09/14/20 Attending physician: Eran Mata Consults: 09/12/20 01:25 Consult Physician Routine Consulting Provider: Yosef Beasley Consult Reason/Comments: gib Do you want consulting provider notified?: Yes Primary care physician: Denisha Vale Hospital Course: Final diagnosis -Acute lower GI bleed: Most probably diverticular bleed -Atrial fibrillation proximal A. fib presently not on anticoagulation because of her previous GI bleed -hypertension -Sleep apnea uses CPAP machine at home Discharge disposition Patient is being discharged in a stable condition with guarded prognosis to home. Patient will follow-up with Dr. Denisha Vale in the outpatient setting upon discharge. Patient is to continue with her daily aspirin. She'll follow up with her pulmonary doctor in the outpatient setting and states she has an appointment already. Total time taken is greater than 35 minutes. Hospital course 78-year-old pleasant female came in with complaints of bright red blood per rectum and multiple the bowel movements about 4 episodes yesterday and 2 episodes today. Patient denied any fever chills patient had any significant abdominal pain. Patient denied nausea vomiting. Patient had history of diverticular bleed in 2014. Patient last colonoscopy was back then. At that time patient was on anticoagulation which was discontinued. Patient is presently on aspirin. Patient denied any shortness of breath fever chills hemoglobin is fairly well around the 14 and hemoglobin is expected to drop it tomorrow or day after. Patient does take Mobic and aspirin 09/13/2020 Patient is seen and evaluated this morning and follow-up and per the patient had 2 bowel movements today with 2 golf ball size clots noted in the stool. Hemoglobin is 12. GI following recommending no endoscopic intervention at this time unless bleeding persists or worsens. Patient denies any abdominal discomfort and was maintaining clear liquids with no nausea or vomiting noted. Diet is being advanced to full liquids and will continue to monitor for tolerance and repeat a.m. labs. Patient appears to be slightly short of breath and is laying flat and discussed with the patient about sitting up. Patient also mentioned that she does wear CPAP at night and is having family bring the device in. Will order chest x-ray and incentive spirometer has been ordered. 09/14/2020 Patient is seen this morning in follow-up with no acute overnight issues. Patient states she had a bowel movement that was normal with no bleeding noted. GI following and the patient did not want to have any endoscopic interventions at this time which is close monitoring. Diet was advanced yesterday and tolerated with no issues. Patient will follow-up with GI in the outpatient setting as needed. Resume aspirin per GI. Patient does use a CPAP at night and will need to follow-up with pulmonary outpatient. Hemoglobin today is stable at 13.2. Sodium also improved to 131 and current creatinine is 0.47. Currently no reports of chest pain, shortness of breath, or palpitations. Patient is afebrile. No reports of nausea or vomiting and patient is tolerating diet. Patient will be discharged home today. On exam vital signs are stable. Cardio S1, S2 are muffled. Respiratory system shows diminished breath sounds at the bases with no wheezing or rhonchi noted. Abdomen is soft and obese, and nontender. Nervous system shows no focal deficits. Please refer to medication reconciliation sheet for a list of medications. Patient Condition at Discharge: Fair Plan - Discharge Summary Discharge Rx Participant: No New Discharge Prescriptions: New Hydrocortisone Pr Cream [Proctosol-Hc 2.5%] 1 applic RECTAL BID #1 applic Continue Potassium Chloride [Klor-Con 20] 20 meq PO BID Lansoprazole 30 mg PO DAILY traMADol HCL/ACETAMINOPHEN [Ultracet 37.5-325] 1 tab PO QAM Furosemide [Lasix] 40 mg PO DAILY Multivitamins, Thera [Multivitamin (formulary)] 1 tab PO DAILY Cholecalciferol [Vitamin D3 (25 Mcg = 1000 Iu)] 1,000 unit PO DAILY Aspirin [Adult Low Dose Aspirin EC] 81 mg PO DAILY traMADol-ACETAMINOP 37.5-325MG [Ultracet] 0.5 mg PO HS Zinc Sulfate [Orazinc] 220 mg PO DAILY cap Ascorbic Acid [Vitamin C] 500 mg PO DAILY tab Magnesium Oxide 400 mg PO DAILY Albuterol Inhaler [Ventolin Hfa Inhaler] 1 puff INHALATION RT-QID PRN PRN Reason: Shortness Of Breath Triamcinolone 0.1% Ointment [Kenalog 0.1% Ointment] 1 applic TOPICAL BID Biotin 10,000 mcg PO DAILY Metoprolol Succinate (ER) [Toprol XL] 100 mg PO DAILY Melatonin 5 mg PO HS PRN PRN Reason: SLEEP Discontinued Meloxicam [Mobic] 7.5 mg PO DAILY Discharge Medication List Furosemide [Lasix] 40 mg PO DAILY 11/30/15 [History] Lansoprazole 30 mg PO DAILY 11/30/15 [History] Potassium Chloride [Klor-Con 20] 20 meq PO BID 11/30/15 [History] traMADol HCL/ACETAMINOPHEN [Ultracet 37.5-325] 1 tab PO QAM 11/30/15 [History] Aspirin [Adult Low Dose Aspirin EC] 81 mg PO DAILY 05/10/20 [History] Cholecalciferol [Vitamin D3 (25 Mcg = 1000 Iu)] 1,000 unit PO DAILY 05/10/20 [History] Multivitamins, Thera [Multivitamin (formulary)] 1 tab PO DAILY 05/10/20 [History] traMADol-ACETAMINOP 37.5-325MG [Ultracet] 0.5 mg PO HS 05/10/20 [History] Ascorbic Acid [Vitamin C] 500 mg PO DAILY tab 05/17/20 [Rx] Zinc Sulfate [Orazinc] 220 mg PO DAILY cap 05/17/20 [Rx] Albuterol Inhaler [Ventolin Hfa Inhaler] 1 puff INHALATION RT-QID PRN 09/11/20 [History] Biotin 10,000 mcg PO DAILY 09/11/20 [History] Magnesium Oxide 400 mg PO DAILY 09/11/20 [History] Melatonin 5 mg PO HS PRN 09/11/20 [History] Metoprolol Succinate (ER) [Toprol XL] 100 mg PO DAILY 09/11/20 [History] Triamcinolone 0.1% Ointment [Kenalog 0.1% Ointment] 1 applic TOPICAL BID 11/26 [History] Hydrocortisone Pr Cream [Proctosol-Hc 2.5%] 1 applic RECTAL BID #1 applic 09/14/20 [Rx] Follow up Appointment(s)/Referral(s): Denisha Vale MD [Primary Care Provider] - 1-2 days Yosef Beasley MD [STAFF PHYSICIAN] - 09/28/20 2:00 pm Activity/Diet/Wound Care/Special Instructions: Activity limited until follow-up Follow up with Primary care provider upon discharge follow up with GI in the outpatient setting as needed follow-up with pulmonary outpatient May continue with aspirin Continue current diet Continue with CPAP Discharge Disposition: HOME SELF-CARE
--- NOTE | 2020-09-14 13:39 | P.PN ---
Subjective Progress Note Date: 09/14/20 Principal diagnosis: Gastro-intestinal bleed She was seen and examined sitting up. She has had no further episodes of bleeding or blood in the stool since yesterday morning which she also reported as small amount of blood clot. She denies any abdominal pain, cramping, nausea, or vomiting. Her hemoglobin is stable at 13.2 Objective - Vital Signs Vital signs: Vital Signs Temp 97.7 F 09/14/20 12:18 Pulse 66 09/14/20 12:18 Resp 16 09/14/20 12:18 BP 125/76 09/14/20 12:18 Pulse Ox 91 L 09/14/20 12:18 Intake & Output 09/13/20 09/14/20 09/14/20 18:59 06:59 18:59 Intake Total 240 Output Total 800 Balance -560 Intake: Oral 240 Output: Urine 800 Other: Voiding Method Toilet Toilet # Voids 2 # Bowel Movements 1 - Exam General appearance: The patient is alert, oriented, appears in no acute distress. Obese. HET: Head is normocephalic and atraumatic. Conjunctiva pink. Sclera anicteric. Neck: Supple without lymphadenopathy. Abdomen: Soft, obese, nontender, nondistended with bowel sounds. No guarding or rigidity. Extremities: Normal skin color and turgor. No pedal edema Skin: No rashes, no jaundice Neurological: No focal deficits. Alert and oriented 3. - Labs CBC & Chem 7: 09/14/20 08:06 09/14/20 08:06 Labs: Abnormal Lab Results - Last 24 Hours (Table) 09/14/20 Range/Units 08:06 Sodium 131 L (137-145) mmol/L Chloride 96 L (98-107) mmol/L BUN 4 L (7-17) mg/dL Creatinine 0.47 L (0.52-1.04) mg/dL Assessment and Plan (1) Gastrointestinal hemorrhage Narrative/Plan: 80-year-old female with multiple medical comorbidities including a history of diverticulosis presenting to the hospital for blood per rectum. Multiple episodes of bright red blood per rectum after having some loose bowel movements. No pain reported. Prior episode of diverticular bleed in 2015 or 2016 at [facility] when the patient was on anticoagulation therapy for atrial fibrillation. The patient had her last colonoscopy at that time with no source of bleeding noted but diverticula noted. Unclear if symptoms are related to diverticular bleed, hemorrhoidal bleeding, ulcer, or other etiology. CT of abdomen and pelvis ordered, Showing diverticulosis without acute diverticulitis. Probable atelectasis or mild infiltrate in right lower lobe. No further bleeding, hemoglobin stable at 13.2. Current Visit: Yes Status: Acute Code(s): K92.2 - GASTROINTESTINAL HEMORRHAGE, UNSPECIFIED SNOMED Code(s): 11486841 (2) Diverticulosis Current Visit: Yes Status: Acute Code(s): K57.90 - DVRTCLOS OF INTEST, PART UNSP, W/O PERF OR ABSCESS W/O BLEED SNOMED Code(s): 959379760 Plan: Supportive care Advance to regular diet Continue to monitor hemoglobin and hematocrit churches as needed Continue to monitor stool output Stool studies ordered and reviewed Computed tomography scan of the abdomen ordered and reviewed No plans for any endoscopic evaluation at this time Dr. Beasley I agree with the dictator's note, documented as a scribe by Evon Agustin.
== END 2020-09-14 14:02 | disposition home or self-care (01) ==
LOC: EC 19:48 → 6NMEDSUR 09-12 01:24 → 5NMEDONC 09-12 04:58
PROVIDERS: ADMIT Hospitalist; ATTEND Hospitalist
DX: K57.91 Diverticulosis of intestine, part unspecified, without perforation or abscess with bleeding (principal); I48.0 Paroxysmal atrial fibrillation; I10 Essential (primary) hypertension; E87.1 Hypo-osmolality and hyponatremia; G47.33 Obstructive sleep apnea (adult) (pediatric); R19.7 Diarrhea, unspecified; E66.9 Obesity, unspecified; Z68.37 Body mass index [BMI] 37.0-37.9, adult; J44.9 Chronic obstructive pulmonary disease, unspecified; M19.90 Unspecified osteoarthritis, unspecified site; Z96.653 Presence of artificial knee joint, bilateral; F41.9 Anxiety disorder, unspecified; Z99.89 Dependence on other enabling machines and devices; Z87.19 Personal history of other diseases of the digestive system; Z87.891 Personal history of nicotine dependence; Z20.822 Contact with and (suspected) exposure to COVID-19; Z79.82 Long term (current) use of aspirin; Z79.1 Long term (current) use of non-steroidal anti-inflammatories (NSAID); Z79.899 Other long term (current) drug therapy; Z79.891 Long term (current) use of opiate analgesic; Z88.0 Allergy status to penicillin; Z88.8 Allergy status to other drugs, medicaments and biological substances; Z88.2 Allergy status to sulfonamides; Z81.8 Family history of other mental and behavioral disorders; Z82.49 Family history of ischemic heart disease and other diseases of the circulatory system
CPT/HCPCS: 96376 ×2; 96374; 96361; 99285; 36415; 94640 ×5; 93005; 86900; 86901; 80053; 80048 ×2; 83605; 83735; 84484; 85025; 85027 ×2; 85610; 85730; 86850; 87324; 87045; 87329; 87328; 87046; 87635; 71045; 71046; 74177; G0378 ×4; C9113 ×3; Q9967; 96373

== ENCOUNTER 2021-04-14 17:38 | Emergency (ER) | payer MEDICARE ==
--- NOTE | 2021-04-14 19:06 | ED ---
GI Bleed HPI <Khloe Moon - Last Filed: 04/14/21 19:02> <Buck Mckeon - Last Filed: 04/14/21 23:07> - General Stated complaint: Rectal Bleeding - History of Present Illness Initial comments: Opal is a pleasant 80yo F with PMH of hospitalization for diverticular bleeding in September of this year. Patient presents to the ER today via private vehicle for evaluation of bright red blood per rectum which began on . She states she had multiple bloody stools on and frequent stooling. She took metamucil and had normal BMs on Thursday and Thursday but today had black stools. No abdominal pain, constipation/diarrhea or vomiting. Patient denies any acute chest pain, shortness of breath or lightheadedness. Chronic SOB for which she wears a CPAP is unchanged. Chronic lightheadedness with standing is also unchanged. (Khloe Moon) - Related Data Home Medications Medication Instructions Recorded Confirmed Furosemide [Lasix] 40 mg PO DAILY 11/30/15 04/14/21 Lansoprazole 30 mg PO DAILY 11/30/15 04/14/21 Potassium Chloride [Klor-Con 20] 20 meq PO BID 11/30/15 04/14/21 traMADol HCL/ACETAMINOPHEN 1 tab PO BID 11/30/15 04/14/21 [Ultracet 37.5-325] Aspirin [Adult Low Dose Aspirin EC] 81 mg PO DAILY 05/10/20 04/14/21 Cholecalciferol [Vitamin D3 (25 1,000 unit PO DAILY 05/10/20 04/14/21 Mcg = 1000 Iu)] Multivitamins, Thera [Multivitamin 1 tab PO DAILY 05/10/20 04/14/21 (formulary)] Albuterol Inhaler [Ventolin Hfa 1 puff INHALATION RT-QID PRN 09/11/20 04/14/21 Inhaler] Biotin [Biotin Disolve] 10,000 mcg PO DAILY 09/11/20 04/14/21 Magnesium Oxide 400 mg PO DAILY 09/11/20 04/14/21 Melatonin 5 mg PO HS PRN 09/11/20 04/14/21 Metoprolol Succinate (ER) [Toprol 100 mg PO DAILY 09/11/20 04/14/21 XL] Meloxicam [Mobic] 7.5 mg PO DAILY 04/14/21 04/14/21 Previous Rx's Medication Instructions Recorded Ascorbic Acid [Vitamin C] 500 mg PO DAILY tab 05/17/20 Zinc Sulfate [Orazinc] 220 mg PO DAILY cap 05/17/20 Allergies Allergy/AdvReac Type Severity Reaction Status Date / Time KAREN Inhibitors Allergy Unknown Verified 04/14/21 20:11 Penicillins Allergy Rash/Hives Verified 04/14/21 20:11 Sulfa (Sulfonamide Allergy Rash/Hives Verified 04/14/21 20:11 Antibiotics) Review of Systems ROS Other: All systems not noted in ROS Statement are negative. <Khloe oMon - Last Filed: 04/14/21 19:02> ROS Other: All systems not noted in ROS Statement are negative. <Buck Mckeon - Last Filed: 04/14/21 23:07> ROS Statement: Those systems with pertinent positive or pertinent negative responses have been documented in the HPI. Past Medical History Past Medical History: Atrial Fibrillation, Hypertension, Osteoarthritis (OA), Sleep Apnea/CPAP/BIPAP Additional Past Medical History / Comment(s): [facility] [place] AFTER 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 Past Anesthesia/Blood Transfusion Reactions: No Reported Reaction Past Psychological History: Anxiety Additional Psychological History / Comment(s): Pt states she and her spouse moved recently from [place] to their farm in [place]. She uses a cane to ambulate. The house is 2 story but she can stay on the first floor. There are several steps to get into the home. She can drive. She has a Cpap and nebulizer. Smoking Status: Former smoker Past Alcohol Use History: None Reported Additional Past Alcohol Use History / Comment(s): started smoking in 7,quit 1963 Past Drug Use History: None Reported - Past Family History Mother Family Medical History: Dementia Father Family Medical History: Myocardial Infarction ([place]) Additional Family Medical History / Comment(s): Father of a [place] at the age of 87yrs. <Khloe Moon - Last Filed: 04/14/21 19:02> General Exam <Khloe Moon - Last Filed: 04/14/21 19:02> General appearance: alert, in no apparent distress, obese Head exam: Present: atraumatic, normocephalic, normal inspection Eye exam: Present: normal appearance, PERRL, EOMI. Absent: scleral icterus, conjunctival injection, periorbital swelling ENT exam: Present: normal exam, mucous membranes moist Neck exam: Present: normal inspection Respiratory exam: Present: normal lung sounds bilaterally. Absent: respiratory distress, wheezes, rales, rhonchi, stridor Cardiovascular Exam: Present: regular rate, normal rhythm, normal heart sounds. Absent: systolic murmur, diastolic murmur, rubs, gallop, clicks GI/Abdominal exam: Present: soft, normal bowel sounds. Absent: distended, tenderness, guarding, rebound, rigid Extremities exam: Present: normal inspection, full ROM, normal capillary refill. Absent: tenderness, pedal edema, joint swelling, calf tenderness Neurological exam: Present: alert, oriented X3 Psychiatric exam: Present: normal affect, normal mood Skin exam: Present: warm, dry, intact, normal color. Absent: rash <Buck Mckeon - Last Filed: 04/14/21 23:07> - General Exam Comments Initial Comments: Physical Exam GENERAL: Patient is well-developed and well-nourished. Patient is nontoxic and well-hydrated and is in no distress. HENT: Normocephalic, Atraumatic. EYES: PERRL, EOMI No conjunctival pallor PULMONARY: Unlabored respirations. CARDIOVASCULAR: RRR Warm and well perfused extremities ABDOMEN: Non-distended SKIN: No rashes or bruising : Deferred NEUROLOGIC: Alert and oriented Normal speech Normal gait MUSCULOSKELETAL: Moving all extremities with no apparent injury PSYCHIATRIC: No SI/HI (Khloe Moon) Course Vital Signs 04/14/21 04/14/21 19:04 20:00 Temperature 98.8 F Pulse Rate 82 75 Respiratory 20 17 Rate Blood Pressure 152/92 155/80 O2 Sat by Pulse 96 97 Oximetry Medical Decision Making - Lab Data Result diagrams: 04/14/21 19:54 04/14/21 19:54 - Radiology Data Radiology results: report reviewed, image reviewed <Buck Mckeon - Last Filed: 04/14/21 23:07> - Medical Decision Making 80-year-old female complaining of bright red blood per rectum on and off since . Labs, CT of the abdomen and pelvis, 1 L normal saline, 40 mg of Protonix, occult blood test. Labs: Hemoglobin 10.4 a 3 g drop since September, CMP unremarkable, occult blood positive. Computed tomography scan shows no acute bleeding but severe diverticulosis without diverticulitis. Dr. Garcia was contacted and he recommended transfer out for GI consult. Case discussed with Dr. Boyce. Right lumbar muscles contacted Dr. Xiao was consulted and will accept the admit to the emergency room. (Buck Mckeon) - Lab Data Lab Results 04/14/21 04/14/21 04/14/21 Range/Units 19:54 19:54 19:54 WBC 5.2 (3.8-10.6) k/uL RBC 3.83 (3.80-5.40) m/uL Hgb 10.4 L (11.4-16.0) gm/dL Hct 31.6 L (34.0-46.0) % MCV 82.4 (80.0-100.0) fL MCH 27.1 (25.0-35.0) pg MCHC 32.9 (31.0-37.0) g/dL RDW 15.0 (11.5-15.5) % Plt Count 282 (150-450) k/uL MPV 6.6 Neutrophils % 63 % Lymphocytes % 22 % Monocytes % 6 % Eosinophils % 5 % Basophils % 0 % Neutrophils # 3.3 (1.3-7.7) k/uL Lymphocytes # 1.1 (1.0-4.8) k/uL Monocytes # 0.3 (0-1.0) k/uL Eosinophils # 0.3 (0-0.7) k/uL Basophils # 0.0 (0-0.2) k/uL Hypochromasia Slight Poikilocytosis Moderate APTT (22.0-30.0) sec Sodium 133 L (137-145) mmol/L Potassium 4.2 (3.5-5.1) mmol/L Chloride 102 (98-107) mmol/L Carbon Dioxide 22 (22-30) mmol/L Anion Gap 9 mmol/L BUN 13 (7-17) mg/dL Creatinine 0.48 L (0.52-1.04) mg/dL Est GFR (CKD-EPI)AfAm >90 (>60 ml/min/1.73 sqM) Est GFR (CKD-EPI)NonAf >90 (>60 ml/min/1.73 sqM) Glucose 106 H (74-99) mg/dL Calcium 9.5 (8.4-10.2) mg/dL Total Bilirubin 0.5 (0.2-1.3) mg/dL AST 30 (14-36) U/L ALT 13 (4-34) U/L Alkaline Phosphatase 77 (38-126) U/L Troponin I (0.000-0.034) ng/mL Total Protein 6.8 (6.3-8.2) g/dL Albumin 4.1 (3.5-5.0) g/dL Stool Occult Blood Positive H (Negative) Coronavirus (PCR) (Not Detectd) 04/14/21 04/14/21 04/14/21 Range/Units 19:54 19:54 20:26 WBC (3.8-10.6) k/uL RBC (3.80-5.40) m/uL Hgb (11.4-16.0) gm/dL Hct (34.0-46.0) % MCV (80.0-100.0) fL MCH (25.0-35.0) pg MCHC (31.0-37.0) g/dL RDW (11.5-15.5) % Plt Count (150-450) k/uL MPV Neutrophils % % Lymphocytes % % Monocytes % % Eosinophils % % Basophils % % Neutrophils # (1.3-7.7) k/uL Lymphocytes # (1.0-4.8) k/uL Monocytes # (0-1.0) k/uL Eosinophils # (0-0.7) k/uL Basophils # (0-0.2) k/uL Hypochromasia Poikilocytosis APTT 22.2 (22.0-30.0) sec Sodium (137-145) mmol/L Potassium (3.5-5.1) mmol/L Chloride (98-107) mmol/L Carbon Dioxide (22-30) mmol/L Anion Gap mmol/L BUN (7-17) mg/dL Creatinine (0.52-1.04) mg/dL Est GFR (CKD-EPI)AfAm (>60 ml/min/1.73 sqM) Est GFR (CKD-EPI)NonAf (>60 ml/min/1.73 sqM) Glucose (74-99) mg/dL Calcium (8.4-10.2) mg/dL Total Bilirubin (0.2-1.3) mg/dL AST (14-36) U/L ALT (4-34) U/L Alkaline Phosphatase (38-126) U/L Troponin I <0.012 (0.000-0.034) ng/mL Total Protein (6.3-8.2) g/dL Albumin (3.5-5.0) g/dL Stool Occult Blood (Negative) Coronavirus (PCR) Not Detected (Not Detectd) - Radiology Data CT abdomen and pelvis: No evidence of active GI bleeding. There is extensive colonic diverticulosis without diverticulitis. Atherosclerotic vascular disease. Cardiomegaly. No adverse change compared to old exam. (Buck Mckeon) Disposition <Khloe Moon - Last Filed: 04/14/21 19:02> Is patient prescribed a controlled substance at d/c from ED?: No Time of Disposition: 23:07 - Out of Hospital Transfer - Req. Specs Out of Hospital Transfer - Requested Specifics: Other Emergency Center ([facility]) <Buck Mckeon - Last Filed: 04/14/21 23:07> Clinical Impression: Diverticulosis, GI bleed Disposition: OTHER INSTITUTION NOT DEFINED Referrals: Nonstaff,Physician [Primary Care Provider] - 1-2 days
[2021-04-14] MEDS ORDERED: SODIUM CHLORIDE 0.9% 1,000 ML IV STA (19:37)
[2021-04-14] MEDS ORDERED: PANTOPRAZOLE 40 MG/10 ML VIAL IVP STA (19:47)
[2021-04-14 20:28] LABS: Basophils % (A) 0 %; Eosinophils # (A) 0.3 k/uL (0-0.7); Eosinophils % (A) 5 %; HCT 31.6 % (34.0-46.0); HGB 10.4 gm/dL (11.4-16.0); Hypochromasia Slight; Lymphocytes # (A) 1.1 k/uL (1.0-4.8); Lymphocytes % (A) 22 %; MCH 27.1 pg (25.0-35.0); MCHC 32.9 g/dL (31.0-37.0); MCV 82.4 fL (80.0-100.0); Mean Platelet Volume 6.6; Monocytes # (A) 0.3 k/uL (0-1.0); Monocytes % (A) 6 %; Neutrophils # (A) 3.3 k/uL (1.3-7.7); Neutrophils % (A) 63 %; Platelet Count 282 k/uL (150-450); Poikilocytosis Moderate; RBC 3.83 m/uL (3.80-5.40); WBC 5.2 k/uL (3.8-10.6)
[2021-04-14 20:41] LABS: ALT 13 U/L (4-34); AST 30 U/L (14-36); African American GFR (CKD) >90 (>60 ml/min/1.73 sqM); Albumin 4.1 g/dL (3.5-5.0); Alkaline Phosphatase 77 U/L (38-126); Anion Gap 9 mmol/L; Blood Urea Nitrogen 13 mg/dL (7-17); Calcium 9.5 mg/dL (8.4-10.2); Carbon Dioxide 22 mmol/L (22-30); Chloride 102 mmol/L (98-107); Glucose 106 mg/dL (74-99); Non-African American GFR(CKD) >90 (>60 ml/min/1.73 sqM); Potassium 4.2 mmol/L (3.5-5.1); Sodium 133 mmol/L (137-145); Total Bilirubin 0.5 mg/dL (0.2-1.3); Total Protein 6.8 g/dL (6.3-8.2)
--- NOTE | 2021-04-14 21:49 | CT ---
EXAMINATION TYPE: CT abdomen pelvis wo/w con DATE OF EXAM: 04/14/2021 COMPARISON: 09/12/2020 HISTORY: Rectal bleeding. CT DLP: 3171.3 mGycm Automated exposure control for dose reduction was used. CONTRAST: Performed without and with IV Contrast, patient injected with 100 mL of Isovue 300. There are 3-D post processed images. Heart is enlarged. There is 3 cm cyst in the superior right lobe of the liver. Spleen is intact. Ther e is no evidence of pancreatic mass. The stomach is intact. There are numerous large bowel diverticul a. Bladder distends smoothly. Kidneys have normal size. There is no hydronephrosis . There is normal contrast opacification of the kidneys. There is no evidence of renal mass. There is no retroperitoneal adenopathy. There is no ascites or free air. There is no bowel obstruction. Bladd er distends smoothly. Uterus is intact. There is no inguinal hernia. I see no contrast extravasation. Appendix appears normal. There is 3 cm umbilical hernia that contains fat. There is posterior fusion surgery in the lower lumbar spine at L4-5 and L5-S1. The bony pelvis is int act. Hip joints are intact. IMPRESSION: No evidence of active GI bleeding. There is extensive colonic diverticulosis without diverticulitis. Atherosclerotic vascular disease. Cardiomegaly. No adverse change compared to old exam.
[2021-04-15 01:00] VITALS: BP 148/80; PULSE 68; RESP 18; TEMP 97.8
== END 2021-04-15 00:15 | disposition other institution (70) ==
LOC: EC 17:38
DX: K57.30 Diverticulosis of large intestine without perforation or abscess without bleeding (principal); K62.5 Hemorrhage of anus and rectum; I10 Essential (primary) hypertension; I48.91 Unspecified atrial fibrillation; Z88.8 Allergy status to other drugs, medicaments and biological substances; Z88.0 Allergy status to penicillin; Z88.2 Allergy status to sulfonamides; Z79.899 Other long term (current) drug therapy; Z87.891 Personal history of nicotine dependence; Z20.822 Contact with and (suspected) exposure to COVID-19
CPT/HCPCS: 36415; 86900; 86901; 80053; 84484; 85025; 85730; 86850; 82272; 87635; 74178; 99284; 96374; 96361; C9113; Q9967

== ENCOUNTER 2024-07-15 12:49 | Inpatient (IN) | payer MEDICARE ==
--- NOTE | 2024-07-15 13:21 | ED ---
General Adult HPI - General Chief complaint: Shortness of Breath Stated complaint: Dizziness, weakness Time Seen by Provider: 07/15/24 12:51 Source: patient, EMS Mode of arrival: EMS - History of Present Illness Initial comments: Dictation was produced using [employer] dictation software. please excuse any grammatical, word or spelling errors. Chief Complaint: 84-year-old female presents emergency department for cough, malaise and shortness of breath History of Present Illness: Patient is an 84-year-old female she presents to the emergency department from home via EMS. She lives at home with her son. Son who is also ill was not able to care for the patient. Patient states she has been sick for the last 3 days. Her symptoms include cough, malaise dizziness shortness of breath. She does not wear home oxygen. Patient has multiple comorbidities including A-fib hypertension osteoarthritis. She wears CPAP. Patient denies any fever chills or night sweats. She feels significantly weak. The ROS documented in this emergency department record has been reviewed and c onfirmed by me. Those systems with pertinent positive or negative responses have been documented in the HPI. All other systems are other negative and/or noncontributory. - Related Data Home Medications Medication Instructions Recorded Confirmed Lansoprazole 30 mg PO DAILY 11/30/15 04/14/21 Potassium Chloride [Klor-Con 20] 20 meq PO BID 11/30/15 04/14/21 Aspirin [Adult Low Dose Aspirin EC] 81 mg PO DAILY 05/10/20 04/14/21 Multivitamins, Thera [Multivitamin 1 tab PO DAILY 05/10/20 04/14/21 (formulary)] Biotin [Biotin Disolve] 10,000 mcg PO DAILY 09/11/20 04/14/21 Magnesium Oxide 400 mg PO DAILY 09/11/20 04/14/21 Melatonin 5 mg PO HS PRN 09/11/20 04/14/21 Cholecalciferol [Vitamin D3 (25 25 mcg PO DAILY 07/15/24 07/15/24 Mcg = 1000 Iu)] Fluticasone Propionate 44 Mcg 1 puff INHALATION RT-BID 07/15/24 07/15/24 [Flovent 44 Mcg Inhaler] Furosemide [Lasix] 40 mg PO DAILY 07/15/24 07/15/24 Metoprolol Succinate (ER) [Toprol 50 mg PO DAILY 07/15/24 07/15/24 Xl] Previous Rx's Medication Instructions Recorded Ascorbic Acid [Vitamin C] 500 mg PO DAILY tab 05/17/20 Allergies Allergy/AdvReac Type Severity Reaction Status Date / Time KAREN Inhibitors Allergy Unknown Verified 07/15/24 15:38 Penicillins Allergy Rash/Hives Verified 07/15/24 15:38 Sulfa (Sulfonamide Allergy Rash/Hives Verified 07/15/24 15:38 Antibiotics) Review of Systems ROS Statement: Those systems with pertinent positive or pertinent negative responses have been documented in the HPI. ROS Other: All systems not noted in ROS Statement are negative. Past Medical History Past Medical History: Atrial Fibrillation, Hypertension, Osteoarthritis (OA), Sleep Apnea/CPAP/BIPAP Additional Past Medical History / Comment(s): Guillian [place] AFTER 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 Past Anesthesia/Blood Transfusion Reactions: No Reported Reaction Past Psychological History: Anxiety Smoking Status: Former smoker Past Alcohol Use History: None Reported Past Drug Use History: None Reported - Past Family History Mother Family Medical History: Dementia Father Family Medical History: Myocardial Infarction ([place]) Additional Family Medical History / Comment(s): Father of a [place] at the age of 87yrs. General Exam - General Exam Comments Initial Comments: PHYSICAL EXAM: General Impression: Alert and oriented x3, not in acute distress HEENT: Normocephalic atraumatic, extra-ocular movements intact, pupils equal and reactive to light bilaterally, mucous membranes moist. Cardiovascular: Heart regular rate and rhythm Chest: Able to complete full sentences, no retractions, no tachypnea Abdomen: abdomen soft, non-tender, non-distended, no organomegaly Musculoskeletal: Pulses present and equal in all extremities, no peripheral edema Motor: no focal deficits noted Neurological: CN II-XII grossly intact, no focal motor or sensory deficits noted Skin: Intact with no visualized rashes Psych: Normal affect and mood Course Vital Signs 07/15/24 07/15/24 12:51 15:23 Temperature 97.9 F Pulse Rate 91 86 Respiratory 22 20 Rate Blood Pressure 129/53 O2 Sat by Pulse 94 L 92 L Oximetry EKG Findings - EKG Comments: EKG Findings:: My EKG interpretation: Ventricular rate 88, A-fib, QRS 97, QTc 429. No QTC prolongation, no ST or T-wave changes noted. Overall, this EKG is unremarkable Medical Decision Making - Medical Decision Making Was pt. sent in by a medical professional or institution (, PA, FOREIGN AGENT, urgent care, hospital, or [facility]...) When possible be specific @ -No Did you speak to anyone other than the patient for history (EMS, parent, family, police, friend...)? What history was obtained from this source @ -No Did you review nursing and triage notes (agree or disagree)? Why? @ -I reviewed and agree with nursing and triage notes Were old charts reviewed (outside hosp., previous admission, EMS record, old EKG, old radiological studies, urgent care reports/EKG's, [facility] records)? Report findings @ -No old charts were reviewed Differential Diagnosis (chest pain, altered mental status, abdominal pain women, abdominal pain men, vaginal bleeding, musculoskeletal, weakness, fever, dyspnea, syncope, headache, dizziness, GI bleed, back pain, seizure, CVA, palpatations, mental health)? @ -Differential Dyspnea: Coronary syndrome, arrhythmia, tamponade, asthma, COPD, pulmonary embolism, pneumonia, pneumothorax, pulmonary effusion, anaphylaxis, diabetic ketoacidosis, flailed chest, pulmonary contusion, diaphragmatic rupture, anemia, ne uromuscular, this is not meant to be an all-inclusive list. EKG interpreted by me (3pts min.). @ -See above X-rays interpreted by me (1pt min.). @ -Chest x-ray is nonacute CT interpreted by me (1pt min.). @ -None done U/S interpreted by me (1pt. min.). @ -None done What testing was considered but not performed or refused? (CT, X-rays, U/S, labs)? Why? @ -None What meds were considered but not given or refused? Why? @ -None Was smoking cessation discussed for >3mins.? @ -No Were there social determinants of health that impacted care today? How? (Homelessness, low income, unemployed, alcoholism, drug addiction, transportation, low edu. Level, literacy, decrease access to med. care, [place] [facility], rehab)? @ -Poor living situation Was there de-escalation of care discussed even if they declined (Discuss DNR or withdrawal of care, Hospice)? DNR status @ -No What co-morbidities impacted this encounter? (DM, HTN, Smoking, COPD, CAD, Cancer, CVA, ARF, Chemo, Hep., AIDS, mental health diagnosis, sleep apnea, morbid obesity)? @ -None Was patient admitted / discharged? Hospital course, mention meds given and route, prescriptions, significant lab abnormalities, going to OR and other pertinent info. @ -84-year-old female presents to the emergency department with respiratory infectious type symptoms along with systemic symptoms. Vital signs upon arrival are within acceptable limits. Laboratory evaluation obtained. Troponin elevated 0.26 for unclear etiology. She does not report any ACS type symptoms. BNP is elevated at 2670. Influenza A positive. Patient given aspirin. She maldonado s not have any history of elevated troponin likely secondary to influenza infection. Patient will be admitted for cardiac monitoring. Cardiology consulted. Case discussed with hospitalist for admission Did you discuss the management of the patient with other professionals (professionals i.e. , PA, FOREIGN AGENT, lab, RT, psych nurse, foster care social worker, adaptive physical education teacher, teacher, emergency response officer, counseling case manager)? Give summary @ -See above Was critical care preformed (if so, how long)? @ -No Undiagnosed new problem with uncertain prognosis? @ -No Drug Therapy requiring intensive monitoring for toxicity (Heparin, Nitro, Insulin, Cardizem)? @ -No Were any procedures done? @ -No Diagnosis/symptom? Acute, or Chronic, or Acute on Chronic? Uncomplicated (without systemic symptoms) or Complicated (systemic symptoms)? @ -Elevated troponin, influenza Side effects of treatment? @ -No Exacerbation, Progression, or Severe Exacerbation? @ -No Poses a threat to life or bodily function? How? (Chest pain, [place], [place], pneumonia, PE, COPD, DKA, ARF, appy, cholecystitis, CVA, Diverticulitis, Homicidal, Suicidal, threat to staff... and all critical care pts) @ -yes - Lab Data Result diagrams: 07/15/24 13:36 07/15/24 13:37 Lab Results 07/15/24 07/15/24 07/15/24 Range/Units 13:36 13:37 13:37 WBC 4.4 (3.8-10.6) k/uL RBC 4.45 (3.80-5.40) m/uL Hgb 11.2 L (11.4-16.0) gm/dL Hct 35.1 (34.0-46.0) % MCV 78.8 L (80.0-100.0) fL MCH 25.2 (25.0-35.0) pg MCHC 31.9 (31.0-37.0) g/dL RDW 21.8 H (11.5-15.5) % Plt Count 208 (150-450) k/uL MPV 6.6 Neutrophils % 84 % Lymphocytes % 8 % Monocytes % 4 % Eosinophils % 1 % Basophils % 0 % Neutrophils # 3.7 (1.3-7.7) k/uL Lymphocytes # 0.4 L (1.0-4.8) k/uL Monocytes # 0.2 (0-1.0) k/uL Eosinophils # 0.0 (0-0.7) k/uL Basophils # 0.0 (0-0.2) k/uL Hypochromasia Slight Anisocytosis Moderate Microcytosis Moderate PT 12.1 (10.0-12.5) sec INR 1.1 (<1.2) APTT 18.5 L (22.0-30.0) sec Sodium 133 L (137-145) mmol/L Potassium 3.5 (3.5-5.1) mmol/L Chloride 101 (98-107) mmol/L Carbon Dioxide 22 (22-30) mmol/L Anion Gap 10 mmol/L BUN 13 (7-17) mg/dL Creatinine 0.47 L (0.52-1.04) mg/dL Est GFR (CKD-EPI)AfAm >90 (>60 ml/min/1.73 sqM) Est GFR (CKD-EPI)NonAf 90 (>60 ml/min/1.73 sqM) Glucose 132 H (74-99) mg/dL Plasma Lactic Acid [place] (0.7-2.0) mmol/L Calcium 9.4 (8.4-10.2) mg/dL Magnesium 1.9 (1.6-2.3) mg/dL Total Bilirubin 0.8 (0.2-1.3) mg/dL AST 30 (14-36) U/L ALT 12 (4-34) U/L Alkaline Phosphatase 78 (38-126) U/L Troponin I (0.000-0.034) ng/mL NT-Pro-B Natriuret Pep 2670 pg/mL Total Protein 6.5 (6.3-8.2) g/dL Albumin 3.9 (3.5-5.0) g/dL Influenza Type A (PCR) (Not Detectd) Influenza Type B (PCR) (Not Detectd) RSV (PCR) (Not Detectd) SARS-CoV-2 (PCR) (Not Detectd) Group A Strep (PCR) (Not Detectd) 07/15/24 07/15/24 07/15/24 Range/Units 13:37 13:37 13:37 WBC (3.8-10.6) k/uL RBC (3.80-5.40) m/uL Hgb (11.4-16.0) gm/dL Hct (34.0-46.0) % MCV (80.0-100.0) fL MCH (25.0-35.0) pg MCHC (31.0-37.0) g/dL RDW (11.5-15.5) % Plt Count (150-450) k/uL MPV Neutrophils % % Lymphocytes % % Monocytes % % Eosinophils % % Basophils % % Neutrophils # (1.3-7.7) k/uL Lymphocytes # (1.0-4.8) k/uL Monocytes # (0-1.0) k/uL Eosinophils # (0-0.7) k/uL Basophils # (0-0.2) k/uL Hypochromasia Anisocytosis Microcytosis PT (10.0-12.5) sec INR (<1.2) APTT (22.0-30.0) sec Sodium (137-145) mmol/L Potassium (3.5-5.1) mmol/L Chloride (98-107) mmol/L Carbon Dioxide (22-30) mmol/L Anion Gap mmol/L BUN (7-17) mg/dL Creatinine (0.52-1.04) mg/dL Est GFR (CKD-EPI)AfAm (>60 ml/min/1.73 sqM) Est GFR (CKD-EPI)NonAf (>60 ml/min/1.73 sqM) Glucose (74-99) mg/dL Plasma Lactic Acid [place] 0.9 (0.7-2.0) mmol/L Calcium (8.4-10.2) mg/dL Magnesium (1.6-2.3) mg/dL Total Bilirubin (0.2-1.3) mg/dL AST (14-36) U/L ALT (4-34) U/L Alkaline Phosphatase (38-126) U/L Troponin I 0.264 H* (0.000-0.034) ng/mL NT-Pro-B Natriuret Pep pg/mL Total Protein (6.3-8.2) g/dL Albumin (3.5-5.0) g/dL Influenza Type A (PCR) (Not Detectd) Influenza Type B (PCR) (Not Detectd) RSV (PCR) (Not Detectd) SARS-CoV-2 (PCR) (Not Detectd) Group A Strep (PCR) NOT DETECTED (Not Detectd) 07/15/24 Range/Units 13:37 WBC (3.8-10.6) k/uL RBC (3.80-5.40) m/uL Hgb (11.4-16.0) gm/dL Hct (34.0-46.0) % MCV (80.0-100.0) fL MCH (25.0-35.0) pg MCHC (31.0-37.0) g/dL RDW (11.5-15.5) % Plt Count (150-450) k/uL MPV Neutrophils % % Lymphocytes % % Monocytes % % Eosinophils % % Basophils % % Neutrophils # (1.3-7.7) k/uL Lymphocytes # (1.0-4.8) k/uL Monocytes # (0-1.0) k/uL Eosinophils # (0-0.7) k/uL Basophils # (0-0.2) k/uL Hypochromasia Anisocytosis Microcytosis PT (10.0-12.5) sec INR (<1.2) APTT (22.0-30.0) sec Sodium (137-145) mmol/L Potassium (3.5-5.1) mmol/L Chloride (98-107) mmol/L Carbon Dioxide (22-30) mmol/L Anion Gap mmol/L BUN (7-17) mg/dL Creatinine (0.52-1.04) mg/dL Est GFR (CKD-EPI)AfAm (>60 ml/min/1.73 sqM) Est GFR (CKD-EPI)NonAf (>60 ml/min/1.73 sqM) Glucose (74-99) mg/dL Plasma Lactic Acid Ose[place] (0.7-2.0) mmol/L Calcium (8.4-10.2) mg/dL Magnesium (1.6-2.3) mg/dL Total Bilirubin (0.2-1.3) mg/dL AST (14-36) U/L ALT (4-34) U/L Alkaline Phosphatase (38-126) U/L Troponin I (0.000-0.034) ng/mL NT-Pro-B Natriuret Pep pg/mL Total Protein (6.3-8.2) g/dL Albumin (3.5-5.0) g/dL Influenza Type A (PCR) Detected A (Not Detectd) Influenza Type B (PCR) Not Detected (Not Detectd) RSV (PCR) Not Detected (Not Detectd) SARS-CoV-2 (PCR) Not Detected (Not Detectd) Group A Strep (PCR) (Not Detectd) Disposition Clinical Impression: Influenza, Elevated troponin Disposition: ADMITTED IP TO THIS HOSP Condition: Fair Referrals: Denisha Vale MD [Primary Care Provider] - 1-2 days Decision Time: 15:44
[2024-07-15 13:56] LABS: Anisocytosis Moderate; Basophils % (A) 0 %; Eosinophils % (A) 1 %; HCT 35.1 % (34.0-46.0); HGB 11.2 gm/dL (11.4-16.0); Hypochromasia Slight; Lymphocytes # (A) 0.4 k/uL (1.0-4.8); Lymphocytes % (A) 8 %; MCH 25.2 pg (25.0-35.0); MCHC 31.9 g/dL (31.0-37.0); MCV 78.8 fL (80.0-100.0); Mean Platelet Volume 6.6; Microcytosis Moderate; Monocytes # (A) 0.2 k/uL (0-1.0); Monocytes % (A) 4 %; Neutrophils # (A) 3.7 k/uL (1.3-7.7); Neutrophils % (A) 84 %; Platelet Count 208 k/uL (150-450); RBC 4.45 m/uL (3.80-5.40); RDW 21.8 % (11.5-15.5); WBC 4.4 k/uL (3.8-10.6)
[2024-07-15 14:12] LABS: ALT 12 U/L (4-34); AST 30 U/L (14-36); African American GFR (CKD) >90 (>60 ml/min/1.73 sqM); Albumin 3.9 g/dL (3.5-5.0); Alkaline Phosphatase 78 U/L (38-126); Anion Gap 10 mmol/L; Blood Urea Nitrogen 13 mg/dL (7-17); Calcium 9.4 mg/dL (8.4-10.2); Carbon Dioxide 22 mmol/L (22-30); Chloride 101 mmol/L (98-107); Glucose 132 mg/dL (74-99); Magnesium 1.9 mg/dL (1.6-2.3); Non-African American GFR(CKD) 90 (>60 ml/min/1.73 sqM); Potassium 3.5 mmol/L (3.5-5.1); Sodium 133 mmol/L (137-145); Total Bilirubin 0.8 mg/dL (0.2-1.3); Total Protein 6.5 g/dL (6.3-8.2)
[2024-07-15 14:14] LABS: INR 1.1 (<1.2); Prothrombin Time 12.1 sec (10.0-12.5)
--- NOTE | 2024-07-15 14:15 | XR ---
EXAMINATION TYPE: XR chest 2V DATE OF EXAM: 07/15/2024 2:08 PM COMPARISON: None. CLINICAL INDICATION: Female, 84 years old with history of cough,dyspnea, fever: Shortness of breath TECHNIQUE: XR chest 2V views of the chest are obtained. FINDINGS: Scattered senescent parenchymal changes noted. Hyperinflation compatible with COPD. No evidence for infiltrate. No evidence for atelectasis. Heart size is stable with moderate cardiomegaly. Mediastinal structures are stable and grossly unremarkable. No evidence for hilar prominence. Degenerative changes dorsal spine. IMPRESSION: 1. No evidence for acute pulmonary disease. [facility], , 07/15/2024 2:12 PM
[2024-07-15 14:21] LABS: NT-Pro-B-Type Natriuretic Pept 2670 pg/mL; Partial Thromboplastin Time 18.5 sec (22.0-30.0)
[2024-07-15 15:10] LABS: Influenza A Detected (Not Detectd); Influenza B Not Detected (Not Detectd); RSV Not Detected (Not Detectd)
[2024-07-15] MEDS: ONDANSETRON 4 MG/2 ML VIAL IVP STA (15:28)
[2024-07-15] MEDS: ASPIRIN 81 MG PO STA (15:30)
[2024-07-15] MEDS ORDERED: NITROGLYCERIN SL TABS 0.4 MG TAB SUBLINGUAL PRN (15:40)
--- NOTE | 2024-07-16 07:48 | P.CRDCN ---
History of Present Illness Consult date: 07/16/24 History of present illness: The patient is a pleasant 84-year-old female patient with a past medical history significant for valvular heart disease with prior history of mitral valve repair with unknown details as well as coronary artery disease as well as permanent atr ial fibrillation not on anticoagulation because of history of GI bleeding secondary to diverticulosis. The patient somewhat poor historian. She presented to the hospital complaining of congestions and shortness of breath but no fever and no chills. She was tested positive for influenza A. No indication of any symptoms of chest pain or chest discomfort or dizziness or lightheadedness or any feeling of heart racing or fluttering or presyncope or syncope or edema in the lower extremities. Went further evaluation including an EKG showing atrial fibrillation with nonspecific ST and T wave abnormalities and frequent PVCs. Chest x-ray did not show any acute abnormalities. NT proBNP came in around 1999. Troponin came to be mildly elevated. The physical examination is remarkable for irregular rhythm with a systolic murmur and distant heart sounds and the systolic murmur is at the right and left upper sternal border with bilateral expiratory wheezing and crackles and no edema was noted in the lower extremities Assessment Influenza A Evidence of myocardial injury with no evidence of ischemia clinically or by EKG History of mitral valve replacement as described above Permanent atrial fibrillation with controlled heart rate not on anticoagulation Plan Consider conservative medical approach at this point Continue the current medical regimen An echo for further risk stratification Follow-up with the patient Past Medical History Past Medical History: Atrial Fibrillation, Hypertension, Osteoarthritis (OA), Sleep Apnea/CPAP/BIPAP Additional Past Medical History / Comment(s): Guillian [employer] AFTER 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 Past Anesthesia/Blood Transfusion Reactions: No Reported Reaction Past Psychological History: Anxiety Smoking Status: Former smoker Past Alcohol Use History: None Reported Past Drug Use History: None Reported - Past Family History Mother Family Medical History: Dementia Father Family Medical History: Myocardial Infarction ([place]) Additional Family Medical History / Comment(s): Father of a [place] at the age of 87yrs. Medications and Allergies Home Medications Medication Instructions Recorded Confirmed Type Lansoprazole 30 mg PO DAILY 11/30/15 07/15/24 History Potassium Chloride [Klor-Con 20] 40 meq PO DAILY 11/30/15 07/15/24 History Aspirin [Adult Low Dose Aspirin EC] 81 mg PO DAILY 05/10/20 07/15/24 History Multivitamins, Thera [Multivitamin 1 tab PO DAILY 05/10/20 07/15/24 History (formulary)] Ascorbic Acid [Vitamin C] 500 mg PO DAILY tab 05/17/20 07/15/24 Rx Biotin [Biotin Disolve] 10,000 mcg PO DAILY 09/11/20 07/15/24 History Magnesium Oxide 400 mg PO DAILY 09/11/20 07/15/24 History Melatonin 5 mg PO HS 09/11/20 07/15/24 History Cholecalciferol [Vitamin D3 (25 25 mcg PO DAILY 07/15/24 07/15/24 History Mcg = 1000 Iu)] Fluticasone Propionate 44 Mcg 1 puff INHALATION RT-BID 07/15/24 07/15/24 History [Flovent 44 Mcg Inhaler] Furosemide [Lasix] 40 mg PO DAILY 07/15/24 07/15/24 History Metoprolol Succinate (ER) [Toprol 50 mg PO DAILY 07/15/24 07/15/24 History Xl] Allergies Allergy/AdvReac Type Severity Reaction Status Date / Time KAREN Inhibitors Allergy Unknown Verified 07/15/24 15:38 Penicillins Allergy Rash/Hives Verified 07/15/24 15:38 Sulfa (Sulfonamide Allergy Rash/Hives Verified 07/15/24 15:38 Antibiotics) Physical Exam Vitals: Vital Signs Temp Pulse Resp BP Pulse Ox 07/16/24 06:00 78 16 146/81 98 07/16/24 04:00 85 18 137/69 98 07/15/24 22:00 81 21 134/89 96 07/15/24 18:48 82 16 146/71 95 07/15/24 16:06 92 L 07/15/24 15:49 85 24 138/66 97 07/15/24 15:23 86 20 138/66 92 L 07/15/24 12:51 97.9 F 91 22 129/53 94 L Results 07/15/24 13:36 07/15/24 13:37 Cardiac Enzymes 07/15/24 07/15/24 07/15/24 Range/Units 13:37 13:37 16:18 AST 30 (14-36) U/L Troponin I 0.264 H* 0.196 H* (0.000-0.034) ng/mL 07/15/24 Range/Units 20:04 AST (14-36) U/L Troponin I 0.162 H* (0.000-0.034) ng/mL Coagulation 07/15/24 Range/Units 13:37 PT 12.1 (10.0-12.5) sec APTT 18.5 L (22.0-30.0) sec CBC 07/15/24 Range/Units 13:36 WBC 4.4 (3.8-10.6) k/uL RBC 4.45 (3.80-5.40) m/uL Hgb 11.2 L (11.4-16.0) gm/dL Hct 35.1 (34.0-46.0) % Plt Count 208 (150-450) k/uL Comprehensive Metabolic Panel 07/15/24 Range/Units 13:37 Sodium 133 L (137-145) mmol/L Potassium 3.5 (3.5-5.1) mmol/L Chloride 101 (98-107) mmol/L Carbon Dioxide 22 (22-30) mmol/L BUN 13 (7-17) mg/dL Creatinine 0.47 L (0.52-1.04) mg/dL Glucose 132 H (74-99) mg/dL Calcium 9.4 (8.4-10.2) mg/dL AST 30 (14-36) U/L ALT 12 (4-34) U/L Alkaline Phosphatase 78 (38-126) U/L Total Protein 6.5 (6.3-8.2) g/dL Albumin 3.9 (3.5-5.0) g/dL Current Medications Generic Name Dose Route Start Last Admin Trade Name Freq PRN Reason Stop Dose Admin Ascorbic Acid 500 mg 07/16/24 09:00 Ascorbic Acid 500 Mg Tab PO DAILY CINDY Aspirin 325 mg 07/16/24 09:00 Aspirin 325 Mg Tab PO DAILY [facility] Cholecalciferol 25 mcg 07/16/24 09:00 Cholecalciferol 25 Mcg (1000 Iu) Tablet PO DAILY [facility] Furosemide 40 mg 07/16/24 09:00 Furosemide 40 Mg Tab PO DAILY [facility] Magnesium Oxide 400 mg 07/16/24 09:00 Magnesium Oxide 400 Mg Tab PO DAILY [facility] Melatonin 5 mg 07/16/24 21:00 Melatonin 5 Mg Tablet PO [facility] Metoprolol Succinate 50 mg 07/16/24 09:00 Metoprolol Succinate (Er) 50 Mg Tab.Er.24h PO DAILY [facility] Nitroglycerin 0.4 mg 07/15/24 15:40 Nitroglycerin Sl Tabs 0.4 Mg Tab SUBLINGUAL Q5M PRN Chest Pain Pantoprazole Sodium 40 mg 07/16/24 07:30 Pantoprazole 40 Mg Tablet PO AC-BRKFST [facility] Potassium Chloride 40 meq 07/16/24 09:00 Potassium Chloride Er 20 Meq Tab.Er PO DAILY [facility] 07/15/24 13:36 07/15/24 13:37
[2024-07-16] MEDS: PANTOPRAZOLE 40 MG TABLET PO SCH (08:01)
[2024-07-16] MEDS: CHOLECALCIFEROL 25 MCG (1000 IU) TABLET PO SCH (08:01)
[2024-07-16] MEDS: POTASSIUM CHLORIDE ER 20 MEQ TAB.ER PO SCH (08:01)
[2024-07-16] MEDS: ASCORBIC ACID 500 MG TAB PO SCH (08:01)
[2024-07-16] MEDS: ASPIRIN 325 MG TAB PO SCH (08:01)
[2024-07-16] MEDS: FUROSEMIDE 40 MG TAB PO SCH (08:02)
[2024-07-16] MEDS: MAGNESIUM OXIDE 400 MG TAB PO SCH (08:02)
[2024-07-16] MEDS: METOPROLOL SUCCINATE (ER) 50 MG TAB.ER.24H PO SCH (08:02)
[2024-07-16 10:07] LABS: Chol/HDL Ratio 2.68 Ratio; LDL Cholesterol,Calculated 87.4 mg/dL (0.0-131.0); VLDL Calculation 10.38 mg/dL (5.00-40.00)
--- NOTE | 2024-07-16 13:51 | P.HPIM ---
History of Present Illness H&P Date: 07/16/24 Opal Howard, is an 84-year-old female who presented to [facility] emergency room with a chief complaint of cough shortness of breath and generalized weakness She was evaluated in the emergency room vital examination on presentation revealed a temperature of 97.9 pulse 91 respiration 22 blood pressure 129/53 pulse ox 94% on 4 L nasal cannula Laboratory data revealed a white blood count of 4.4 hemoglobin 11.2 platelet count 208 sodium 133 potassium 3.5 BUN 13 creatinine 0.47 troponin was elevated at 0.264 influenza A PCR was positive Testing in the emergency room revealed chest x-ray revealed no acute pulmonary process, EKG revealed atrial fibrillation with incomplete right bundle branch block Patient was admitted to medical floor for further evaluation and treatment Past Medical History Past Medical History: Atrial Fibrillation, Hypertension, Osteoarthritis (OA), Sleep Apnea/CPAP/BIPAP Additional Past Medical History / Comment(s): [place] AFTER 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 Past Anesthesia/Blood Transfusion Reactions: No Reported Reaction Smoking Status: Former smoker - Past Family History Mother Family Medical History: Dementia Father Family Medical History: Myocardial Infarction (GA) Additional Family Medical History / Comment(s): Father of a GA at the age of 87yrs. Medications and Allergies Home Medications Medication Instructions Recorded Confirmed Type Lansoprazole 30 mg PO DAILY 11/30/15 07/15/24 History Potassium Chloride [Klor-Con 20] 40 meq PO DAILY 11/30/15 07/15/24 History Aspirin [Adult Low Dose Aspirin EC] 81 mg PO DAILY 05/10/20 07/15/24 History Multivitamins, Thera [Multivitamin 1 tab PO DAILY 05/10/20 07/15/24 History (formulary)] Ascorbic Acid [Vitamin C] 500 mg PO DAILY tab 05/17/20 07/15/24 Rx Biotin [Biotin Disolve] 10,000 mcg PO DAILY 09/11/20 07/15/24 History Magnesium Oxide 400 mg PO DAILY 09/11/20 07/15/24 History Melatonin 5 mg PO HS 09/11/20 07/15/24 History Cholecalciferol [Vitamin D3 (25 25 mcg PO DAILY 07/15/24 07/15/24 History Mcg = 1000 Iu)] Fluticasone Propionate 44 Mcg 1 puff INHALATION RT-BID 07/15/24 07/15/24 History [Flovent 44 Mcg Inhaler] Furosemide [Lasix] 40 mg PO DAILY 07/15/24 07/15/24 History Metoprolol Succinate (ER) [Toprol 50 mg PO DAILY 07/15/24 07/15/24 History Xl] Allergies Allergy/AdvReac Type Severity Reaction Status Date / Time KAREN Inhibitors Allergy Unknown Verified 07/15/24 15:38 Penicillins Allergy Rash/Hives Verified 07/15/24 15:38 Sulfa (Sulfonamide Allergy Rash/Hives Verified 07/15/24 15:38 Antibiotics) Physical Exam Vitals: Vital Signs Temp Pulse Pulse Resp BP BP Pulse Ox 07/16/24 08:00 77 18 139/83 97 07/16/24 06:00 78 16 146/81 98 07/16/24 04:00 85 18 137/69 98 07/15/24 22:00 81 21 134/89 96 07/15/24 18:48 82 16 146/71 95 07/15/24 16:06 92 L 07/15/24 15:49 85 24 138/66 97 07/15/24 15:23 86 20 138/66 92 L 07/15/24 12:51 97.9 F 91 22 129/53 94 L Intake and Output 07/15/24 07/16/24 07/16/24 22:59 06:59 14:59 Other: Voiding Method External Catheter # Bowel Movements 1 Weight 90.718 kg In general patient is alert and oriented x 3 in no distress HEENT head normocephalic and atraumatic Neck is supple no JVD no goiter no lymphadenopathy no carotid bruit Chest examination revealed scattered crackles bilaterally with wheezing Cardiac exam reveals irregular heart sounds S1 and S2 no gallops no murmurs Abdomen is soft nontender no organomegaly with normal bowel sounds Extremity exam reveals no edema no cyanosis or clubbing Neurological examination reveals no gross focal deficits Results CBC & Chem 7: 07/15/24 13:36 07/15/24 13:37 Labs: Abnormal Lab Results - Last 24 Hours (Table) 07/15/24 07/15/24 07/15/24 Range/Units 13:36 13:37 13:37 Hgb 11.2 L (11.4-16.0) gm/dL MCV 78.8 L (80.0-100.0) fL RDW 21.8 H (11.5-15.5) % Lymphocytes # 0.4 L (1.0-4.8) k/uL APTT 18.5 L (22.0-30.0) sec Sodium 133 L (137-145) mmol/L Creatinine 0.47 L (0.52-1.04) mg/dL Glucose 132 H (74-99) mg/dL Troponin I (0.000-0.034) ng/mL Influenza Type A (PCR) (Not Detectd) 07/15/24 07/15/24 07/15/24 Range/Units 13:37 13:37 16:18 Hgb (11.4-16.0) gm/dL MCV (80.0-100.0) fL RDW (11.5-15.5) % Lymphocytes # (1.0-4.8) k/uL APTT (22.0-30.0) sec Sodium (137-145) mmol/L Creatinine (0.52-1.04) mg/dL Glucose (74-99) mg/dL Troponin I 0.264 H* 0.196 H* (0.000-0.034) ng/mL Influenza Type A (PCR) Detected A (Not Detectd) 07/15/24 Range/Units 20:04 Hgb (11.4-16.0) gm/dL MCV (80.0-100.0) fL RDW (11.5-15.5) % Lymphocytes # (1.0-4.8) k/uL APTT (22.0-30.0) sec Sodium (137-145) mmol/L Creatinine (0.52-1.04) mg/dL Glucose (74-99) mg/dL Troponin I 0.162 H* (0.000-0.034) ng/mL Influenza Type A (PCR) (Not Detectd) Thrombosis Risk Factor Assmnt - Choose All That Apply Any of the Below Risk Factors Present?: Yes Each Factor Represents 1 point: Abnormal pulmonary function (COPD) Other Risk Factors: No Other congenital or acquired thrombophilia - If yes, enter type in comment: No Thrombosis Risk Factor Assessment Total Risk Factor Score: 1 Thrombosis Risk Factor Assessment Level: Low Risk Assessment and Plan Plan: Acute influenza A infection Acute non-ST elevation myocardial infarction Acute respiratory failure with hypoxia Underlying history of coronary artery disease Underlying history of permanent atrial fibrillation Underlying history of mitral valve replacement Previous history of gastrointestinal bleeding 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 Will follow closely
[2024-07-16] MEDS: IPRATROPIUM-ALBUTEROL 3 ML NEB INHALATION PRN (15:35)
--- NOTE | 2024-07-16 16:18 | CA ---
Transthoracic Echo Report Name: Opal Howard Age: 84 Gender: F : 1940 Exam Date: 07/16/2024 11:32 Exam Location: [facility] Ht (in): 60 Wt (lb): 200 Ordering Physician: Humberto Ortiz MD ([id number]) Attending/Referring Phys: Bucket Operator Idalia Hallman, KASSANDRA Procedure CPT: Indications: afib, no ATC, SOB Cardiac Hx: Technical Quality: Fair Contrast 1: Total Dose (mL): Contrast 2: Total Dose (mL): MEASUREMENTS (Male / Female) Normal Values 2D ECHO LV Diastolic Diameter PLAX 4.6 cm 4.2 - 5.9 / 3.9 - 5.3 cm LV Systolic Diameter PLAX 2.7 cm IVS Diastolic Thickness 1.2 cm 0.6 - 1.0 / 0.6 - 0.9 cm LVPW Diastolic Thickness 1.1 cm 0.6 - 1.0 / 0.6 - 0.9 cm LV Relative Wall Thickness 0.5 RV Internal Dim ED PLAX 3.6 cm LVOT Diameter 1.8 cm LV Diastolic Volume MOD BP 113.7 cm??? 67 - 155 / 56 - 104 cm??? LV Systolic Volume MOD BP 46.7 cm??? 22 - 58 / 19 - 49 cm??? LV Ejection Fraction MOD BP 58.9 % >= 55 % LV Cardiac Index MOD BP 2267.4 cm???/min???m??? LV Diastolic Volume MOD 4C 114.1 cm??? LV Systolic Volume MOD 4C 42.0 cm??? LV Ejection Fraction MOD 4C 63.2 % LV Cardiac Index MOD 4C 2440.6 cm???/min???m??? LV Diastolic Length 4C 8.5 cm LV Systolic Length 4C 7.3 cm LV Diastolic Volume MOD 2C 110.1 cm??? LV Systolic Volume MOD 2C 51.7 cm??? LV Ejection Fraction MOD 2C 53.0 % LV Cardiac Index MOD 2C 1975.8 cm???/min???m??? LV Diastolic Length 2C 8.2 cm LV Systolic Length 2C 7.5 cm LA Volume 172.9 cm??? 18 - 58 / 22 - 52 cm??? LA Volume Index 86.0 cm???/m??? 16 - 28 cm???/m??? DOPPLER AV Peak Velocity 183.4 cm/s AV Peak Gradient 13.5 mmHg AV Mean Velocity 128.2 cm/s AV Mean Gradient 7.2 mmHg AV Velocity Time Integral 42.0 cm AI Peak Velocity 396.9 cm/s AI Peak Gradient 63.0 mmHg AI Pressure Half Time 416.4 ms LVOT Peak Velocity 72.1 cm/s LVOT Peak Gradient 2.1 mmHg LVOT Velocity Time Integral 14.1 cm LVOT Stroke Volume 36.5 cm??? LVOT Stroke Volume Index 19.6 ml/m??? LVOT Cardiac Index 1236.2 cm???/min???m??? AV Area Cont Eq vti 0.9 cm??? AV Area Cont Eq pk 1.0 cm??? MV Peak Velocity 206.2 cm/s MV Peak Gradient 17.0 mmHg MV Mean Velocity 117.2 cm/s MV Mean Gradient 6.2 mmHg MV Velocity Time Integral 46.9 cm MV Area PHT 3.6 cm??? Mitral E Point Velocity 181.4 cm/s Mitral A Point Velocity 74.9 cm/s Mitral E to A Ratio 2.4 MV Deceleration Time 209.2 ms TR Peak Velocity 291.9 cm/s TR Peak Gradient 34.1 mmHg FINDINGS Left Ventricle Mildly increased septal wall thickness. Mildly increased posterior wall thickness. Mildly increased left ventricular diastolic volume. Abnormal (paradoxical) septal motion consistent with postoperative state. Left ventricular ejection fraction is estimated at 50-55 %. Right Ventricle Mild right ventricular dilatation. Mild pulmonary hypertension. Right ventricular systolic pressure estimated at 35 mm hg. Right Atrium Severe right atrial dilatation. Left Atrium Severely increased left atrial volume. Severely increased left atrial area. Mitral Valve Mild prosthetic mitral valve regurgitation. Gradient recorded across the prosthetic mitral valve within the expected range. Mean pG 6.2mmHg, peak PG 17 mmHg. Aortic Valve No aortic stenosis. Thickened aortic valve without stenosis. Mild aortic regurgitation. Tricuspid Valve Structurally normal tricuspid valve. Moderate tricuspid regurgitation. Pulmonic Valve Structurally normal pulmonic valve. Trace to mild pulmonic regurgitation. Pericardium No pericardial effusion. Aorta Normal size aortic root and proximal ascending aorta. CONCLUSIONS Normal LV systolic function Severe biatrial enlargement Bioprosthetic mitral valve with somewhat elevated mean gradient across the valve at 6 mmHg and mild mitral regurgitation Mild pulmonary hypertension Dilated right ventricle with normal function Moderate tricuspid regurgitation Previewed by: Dr. Humberto Ortiz MD (Electronically Signed) Final Date: 16 July 2024 16:17
[2024-07-16] MEDS: methylPREDNISolone SOD SUCCI 125 MG/2 ML VIAL IV SCH (16:52)
[2024-07-16] MEDS: BENZONATATE 100 MG CAP PO SCH (16:52)
[2024-07-16] MEDS: BUDESONIDE 0.5 MG/2 ML NEBU INHALATION SCH (20:21)
[2024-07-16] MEDS: MELATONIN 5 MG TABLET PO SCH (20:42)
[2024-07-16] MEDS: OSELTAMIVIR 75 MG CAP PO SCH (20:50)
[2024-07-16] MEDS ORDERED: MELATONIN 5 MG TABLET PO SCH (21:00)
--- NOTE | 2024-07-17 08:10 | XR ---
Chest, 2 view. HISTORY: Shortness of breath COMPARISON: 07/15/2024 TECHNIQUE: PA and lateral views the chest are obtained. FINDINGS: There is stable marked cardiomegaly but no pulmonary vascular congestion or interstitial edema. There is no airspace consolidation. There has been development of tiny bilateral pleural effusions. There is no pneumothorax. There is degeneration of the right shoulder and a left shoulder prosthesis. IMPRESSION: 1. Stable marked cardiomegaly. 2. Development of tiny bilateral pleural effusions. 3. No airspace consolidation or pulmonary vascular congestion. [facility], , 07/17/2024 8:07 AM
[2024-07-17] MEDS ORDERED: BIOTIN 10000 MCG PO SCH (09:00)
[2024-07-17] MEDS ORDERED: NON FORMULARY DRUG (Lansoprazole [Lansoprazole] 30 MG Capsule.Dr) PO SCH (09:00)
[2024-07-17] MEDS ORDERED: NON FORMULARY DRUG (Aspirin [Adult Low Dose Aspirin Ec] 81 MG Tablet.Dr) PO SCH (09:00)
[2024-07-17] MEDS ORDERED: FUROSEMIDE 20 MG TAB PO SCH (09:00)
[2024-07-17] MEDS: MAGNESIUM OXIDE 400 MG TAB PO SCH (09:09)
[2024-07-17] MEDS: ASCORBIC ACID 500 MG TAB PO SCH (09:09)
[2024-07-17] MEDS: METOPROLOL SUCCINATE (ER) 50 MG TAB.ER.24H PO SCH (09:09)
[2024-07-17] MEDS: CHOLECALCIFEROL 25 MCG (1000 IU) TABLET PO SCH (09:09)
[2024-07-17] MEDS: POTASSIUM CHLORIDE ER 20 MEQ TAB.ER PO SCH (09:09)
[2024-07-17] MEDS: MULTIVITAMINS, THERA 1 EACH TAB PO SCH (09:09)
--- NOTE | 2024-07-17 09:38 | P.PN ---
Subjective Progress Note Date: 07/17/24 Opal Howard, is an 84-year-old female who presented to [facility] emergency room with a chief complaint of cough shortness of breath and generalized weakness She was evaluated in the emergency room vital examination on presentation revealed a temperature of 97.9 pulse 91 respiration 22 blood pressure 129/53 pulse ox 94% on 4 L nasal cannula Laboratory data revealed a white blood count of 4.4 hemoglobin 11.2 platelet count 208 sodium 133 potassium 3.5 BUN 13 creatinine 0.47 troponin was elevated at 0.264 influenza A PCR was positive Testing in the emergency room revealed chest x-ray revealed no acute pulmonary process, EKG revealed atrial fibrillation with incomplete right bundle branch block Patient was admitted to medical floor for further evaluation and treatment On 07/17/2024 patient is alert and oriented x 3. Patient reports improvement with overall shortness of breath and cough. Cardiology and pulmonary services are following patient remains on Tamiflu. Current vital signs temp 97.8, heart rate 82, respiratory rate 16, blood pressure 135/60 with a pulse ox of 95% on 2 L patient denies chest pain. Patient denies nausea vomiting or diarrhea. Patient denies any urinary burning or frequency Objective - Vital Signs Vital signs: Vital Signs Temp 97.8 F 07/17/24 06:50 Pulse 82 07/17/24 06:50 Resp 16 07/17/24 06:50 BP 135/60 07/17/24 06:50 Pulse Ox 94 L 07/17/24 06:50 FiO2 Intake & Output 07/16/24 07/17/24 07/17/24 18:59 06:59 18:59 Intake Total 480 Output Total 1100 1050 Balance -620 -1050 Weight 90.718 kg 90 kg Intake: Oral 480 Output: Urine 1100 1050 Other: Voiding Method External Catheter External Catheter # Voids 2 # Bowel Movements 1 - Labs CBC & Chem 7: 07/15/24 13:36 07/15/24 13:37 Assessment and Plan Plan: Acute influenza A infection Acute non-ST elevation myocardial infarction Acute respiratory failure with hypoxia Underlying history of coronary artery disease Underlying history of permanent atrial fibrillation Underlying history of mitral valve replacement Previous history of gastrointestinal bleeding 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 Will follow closely
[2024-07-17 11:16] LABS: HCT 39.7 % (37.2-46.3); HGB 11.6 g/dL (12.0-15.0); MCH 24.5 pg (27.0-32.0); MCHC 29.2 g/dL (32.0-37.0); MCV 83.9 FL (80.0-97.0); Mean Platelet Volume 8.9 FL (9.5-12.2); NRBC Per 100 WBC 0 X 10*3/uL (0.00-0.01); Platelet Count 250 X 10*3/uL (140-440); RBC 4.73 X 10*6/uL (4.10-5.20); RDW 24.4 % (11.5-14.5); WBC 5.43 X 10*3/uL (4.50-10.00)
[2024-07-17 11:23] LABS: ALT 14 U/L (8-44); AST 36 U/L (13-35); Albumin 3.9 g/dL (3.8-4.9); Alkaline Phosphatase 75 U/L (41-126); Blood Urea Nitrogen 13.6 mg/dL (9.0-27.0); Calcium 9.4 mg/dL (8.7-10.3); Carbon Dioxide 25.3 mmol/L (21.6-31.8); Chloride 102 mmol/L (96-109); Globulin 2.6 g/dL (1.6-3.3); Glucose 138 mg/dL (70-110); Potassium 4.5 mmol/L (3.5-5.5); Sodium 140 mmol/L (135-145); Total Bilirubin 0.4 mg/dL (0.3-1.2); Total Protein 6.5 g/dL (6.2-8.2)
[2024-07-17 12:22] LABS: Basophils # (A) 0 X 10*3/uL (0.00-0.10); Basophils % (A) 0 %; Eosinophils # (A) 0 X 10*3/uL (0.04-0.35); Eosinophils % (A) 0 %; Lymphocytes # (A) 0.36 X 10*3/uL (0.90-5.00); Lymphocytes % (A) 6.6 %; Monocytes # (A) 0.14 X 10*3/uL (0.20-1.00); Monocytes % (A) 2.6 %; Neutrophils # (A) 4.92 X 10*3/uL (1.80-7.70); Neutrophils % (A) 90.6 %
--- NOTE | 2024-07-17 16:19 | P.PN ---
Subjective Progress Note Date: 07/17/24 The patient is a pleasant 84-year-old female patient with a past medical history significant for valvular heart disease with prior history of mitral valve repair with unknown details as well as coronary artery disease as well as permanent atrial fibrillation not on anticoagulation because of history of GI bleeding secondary to diverticulosis. The patient somewhat poor historian. She presented to the hospital complaining of congestions and shortness of breath but no fever and no chills. She was tested positive for influenza A. No indication of any symptoms of chest pain or chest discomfort or dizziness or lightheadedness or any feeling of heart racing or fluttering or presyncope or syncope or edema in the lower extremities. Went further evaluation including an EKG showing atrial fibrillation with nonspecific ST and T wave abnormalities and frequent PVCs. Chest x-ray did not show any acute abnormalities. NT proBNP came in around 1999. Troponin came to be mildly elevated. The physical examination is remarkable for irregular rhythm with a systolic murmur and distant heart sounds and the systolic murmur is at the right and left upper sternal border with bilateral expiratory wheezing and crackles and no edema was noted in the lower extremities July 17, 2024 The patient was seen and evaluated this morning she is overall feeling better. No symptoms of chest pain or chest discomfort or shortness of breath. The echo showed preserved LV systolic function with normally functioning bioprosthetic valve in mitral position with somewhat elevated gradient across the valve. At this point I will continue the current medical regimen and follow-up with the patient on as needed case. The physical examination is remarkable for regular rhythm with a systolic murmur at the right upper and left upper sternal border and diminished breathing sounds bilaterally. Assessment Influenza A Evidence of myocardial injury with no evidence of ischemia clinically or by EKG History of mitral valve replacement as described above Permanent atrial fibrillation with controlled heart rate not on anticoagulation Plan Continue the current medical regimen Follow-up with the patient on as needed case Objective - Vital Signs Vital signs: Vital Signs Temp 97.8 F 07/17/24 06:50 Pulse 80 07/17/24 10:51 Resp 16 07/17/24 08:00 BP 135/60 07/17/24 06:50 Pulse Ox 94 L 07/17/24 06:50 FiO2 Intake & Output 07/16/24 07/17/24 07/17/24 18:59 06:59 18:59 Intake Total 480 Output Total 1100 1050 Balance -620 -1050 Weight 90.718 kg 90 kg Intake: Oral 480 Output: Urine 1100 1050 Other: Voiding Method External Catheter External Catheter External Catheter # Voids 2 # Bowel Movements 1 2 - Labs CBC & Chem 7: 07/17/24 03:56 07/17/24 03:56 Labs: Abnormal Lab Results - Last 24 Hours (Table) 07/17/24 07/17/24 Range/Units 03:56 03:56 Hgb 11.6 L (12.0-15.0) g/dL MCH 24.5 L (27.0-32.0) pg MCHC 29.2 L (32.0-37.0) g/dL RDW 24.4 H (11.5-14.5) % MPV 8.9 L (9.5-12.2) FL Lymphocytes # 0.36 L (0.90-5.00) X 10*3/uL Monocytes # 0.14 L (0.20-1.00) X 10*3/uL Eosinophils # 0 L (0.04-0.35) X 10*3/uL Anion Gap 12.70 H (4.00-12.00) mmol/L Creatinine 0.5 L (0.6-1.5) mg/dL BUN/Creatinine Ratio 27.20 H (12.00-20.00) Ratio Glucose 138 H (70-110) mg/dL AST 36 H (13-35) U/L Albumin/Globulin Ratio 1.50 L (1.60-3.17) Ratio
[2024-07-18 08:45] LABS: ALT 14 U/L (8-44); AST 29 U/L (13-35); Albumin 3.9 g/dL (3.8-4.9); Alkaline Phosphatase 73 U/L (41-126); BUN/Creat Ratio 29.33 Ratio (12.00-20.00); Blood Urea Nitrogen 17.6 mg/dL (9.0-27.0); Calcium 9.6 mg/dL (8.7-10.3); Carbon Dioxide 28.5 mmol/L (21.6-31.8); Chloride 98 mmol/L (96-109); Globulin 2.3 g/dL (1.6-3.3); Glucose 141 mg/dL (70-110); Potassium 4.3 mmol/L (3.5-5.5); Sodium 137 mmol/L (135-145); Total Bilirubin 0.4 mg/dL (0.3-1.2); Total Protein 6.2 g/dL (6.2-8.2)
[2024-07-18 08:46] LABS: Basophils # (A) 0 X 10*3/uL (0.00-0.10); Basophils % (A) 0 %; Eosinophils # (A) 0 X 10*3/uL (0.04-0.35); Eosinophils % (A) 0 %; HGB 11.8 g/dL (12.0-15.0); Lymphocytes # (A) 0.49 X 10*3/uL (0.90-5.00); Lymphocytes % (A) 8.6 %; MCH 24.2 pg (27.0-32.0); MCHC 29.5 g/dL (32.0-37.0); MCV 82.1 FL (80.0-97.0); Mean Platelet Volume 8.6 FL (9.5-12.2); Monocytes # (A) 0.27 X 10*3/uL (0.20-1.00); Monocytes % (A) 4.7 %; NRBC Per 100 WBC 0 X 10*3/uL (0.00-0.01); Neutrophils # (A) 4.92 X 10*3/uL (1.80-7.70); Neutrophils % (A) 86.3 %; Platelet Count 278 X 10*3/uL (140-440); RBC 4.87 X 10*6/uL (4.10-5.20); RDW 23.9 % (11.5-14.5)
--- NOTE | 2024-07-18 19:01 | P.PN ---
Subjective Progress Note Date: 07/18/24 Opal Howard, is an 84-year-old female who presented to [facility] emergency room with a chief complaint of cough shortness of breath and generalized weakness She was evaluated in the emergency room vital examination on presentation revealed a temperature of 97.9 pulse 91 respiration 22 blood pressure 129/53 pulse ox 94% on 4 L nasal cannula Laboratory data revealed a white blood count of 4.4 hemoglobin 11.2 platelet count 208 sodium 133 potassium 3.5 BUN 13 creatinine 0.47 troponin was elevated at 0.264 influenza A PCR was positive Testing in the emergency room revealed chest x-ray revealed no acute pulmonary process, EKG revealed atrial fibrillation with incomplete right bundle branch block Patient was admitted to medical floor for further evaluation and treatment On 07/17/2024 patient is alert and oriented x 3. Patient reports improvement with overall shortness of breath and cough. Cardiology and pulmonary services are following patient remains on Tamiflu. Current vital signs temp 97.8, heart rate 82, respiratory rate 16, blood pressure 135/60 with a pulse ox of 95% on 2 L patient denies chest pain. Patient denies nausea vomiting or diarrhea. Patient denies any urinary burning or frequency On 07/18/2024 patient was seen and examined on the medical floor she is alert and oriented x 3 in no apparent distress there is no fever or chills no headache or dizziness no chest pain she is still complaining of cough and shortness of breath otherwise she denies any complaints, there is no nausea or vomiting no abdominal pain no diarrhea and no urinary symptoms Objective - Vital Signs Vital signs: Vital Signs Temp 98.2 F 07/18/24 04:00 Pulse 92 07/18/24 07:41 Resp 20 07/18/24 04:00 BP 144/63 07/18/24 04:00 Pulse Ox 90 L 07/18/24 07:41 FiO2 Intake & Output 07/17/24 07/18/24 07/18/24 18:59 06:59 18:59 Intake Total 240 Output Total 3500 Balance -3260 Weight 91 kg Intake: Oral 240 Output: Urine 3500 Other: Voiding Method External Catheter External Catheter # Bowel Movements 2 - Labs CBC & Chem 7: 07/18/24 02:47 07/18/24 02:47 Labs: Abnormal Lab Results - Last 24 Hours (Table) 07/17/24 07/17/24 Range/Units 03:56 03:56 Hgb 11.6 L (12.0-15.0) g/dL MCH 24.5 L (27.0-32.0) pg MCHC 29.2 L (32.0-37.0) g/dL RDW 24.4 H (11.5-14.5) % MPV 8.9 L (9.5-12.2) FL Lymphocytes # 0.36 L (0.90-5.00) X 10*3/uL Monocytes # 0.14 L (0.20-1.00) X 10*3/uL Eosinophils # 0 L (0.04-0.35) X 10*3/uL Anion Gap 12.70 H (4.00-12.00) mmol/L Creatinine 0.5 L (0.6-1.5) mg/dL BUN/Creatinine Ratio 27.20 H (12.00-20.00) Ratio Glucose 138 H (70-110) mg/dL AST 36 H (13-35) U/L Albumin/Globulin Ratio 1.50 L (1.60-3.17) Ratio Assessment and Plan Plan: Acute influenza A infection Acute non-ST elevation myocardial infarction Acute respiratory failure with hypoxia Underlying history of coronary artery disease Underlying history of permanent atrial fibrillation Underlying history of mitral valve replacement Previous history of gastrointestinal bleeding 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 Will follow closely
[2024-07-18] MEDS: OSELTAMIVIR 30 MG CAP PO SCH (20:55)
[2024-07-18] MEDS: diphenhydrAMINE 25 MG CAP PO PRN (20:55)
[2024-07-19 08:46] LABS: ALT 21 U/L (8-44); AST 34 U/L (13-35); Alkaline Phosphatase 73 U/L (41-126); BUN/Creat Ratio 35.33 Ratio (12.00-20.00); Blood Urea Nitrogen 21.2 mg/dL (9.0-27.0); Calcium 9.5 mg/dL (8.7-10.3); Carbon Dioxide 27.5 mmol/L (21.6-31.8); Chloride 96 mmol/L (96-109); Globulin 2.5 g/dL (1.6-3.3); Glucose 149 mg/dL (70-110); Potassium 4.2 mmol/L (3.5-5.5); Sodium 136 mmol/L (135-145); Total Bilirubin 0.3 mg/dL (0.3-1.2); Total Protein 6.5 g/dL (6.2-8.2)
[2024-07-19 09:21] LABS: Basophils # (A) 0 X 10*3/uL (0.00-0.10); Basophils % (A) 0 %; Eosinophils # (A) 0 X 10*3/uL (0.04-0.35); Eosinophils % (A) 0 %; HCT 42.7 % (37.2-46.3); HGB 12.9 g/dL (12.0-15.0); Lymphocytes # (A) 0.61 X 10*3/uL (0.90-5.00); Lymphocytes % (A) 9.4 %; MCH 24.5 pg (27.0-32.0); MCHC 30.2 g/dL (32.0-37.0); Mean Platelet Volume 8.6 FL (9.5-12.2); Monocytes # (A) 0.21 X 10*3/uL (0.20-1.00); Monocytes % (A) 3.2 %; NRBC Per 100 WBC 0 X 10*3/uL (0.00-0.01); Neutrophils # (A) 5.66 X 10*3/uL (1.80-7.70); Neutrophils % (A) 87.1 %; Platelet Count 301 X 10*3/uL (140-440); RBC 5.27 X 10*6/uL (4.10-5.20); RDW 23.9 % (11.5-14.5)
--- NOTE | 2024-07-19 12:32 | P.PN ---
Subjective Progress Note Date: 07/19/24 Opal Howard, is an 84-year-old female who presented to [facility] emergency room with a chief complaint of cough shortness of breath and generalized weakness She was evaluated in the emergency room vital examination on presentation revealed a temperature of 97.9 pulse 91 respiration 22 blood pressure 129/53 pulse ox 94% on 4 L nasal cannula Laboratory data revealed a white blood count of 4.4 hemoglobin 11.2 platelet count 208 sodium 133 potassium 3.5 BUN 13 creatinine 0.47 troponin was elevated at 0.264 influenza A PCR was positive Testing in the emergency room revealed chest x-ray revealed no acute pulmonary process, EKG revealed atrial fibrillation with incomplete right bundle branch block Patient was admitted to medical floor for further evaluation and treatment On 07/17/2024 patient is alert and oriented x 3. Patient reports improvement with overall shortness of breath and cough. Cardiology and pulmonary services are following patient remains on Tamiflu. Current vital signs temp 97.8, heart rate 82, respiratory rate 16, blood pressure 135/60 with a pulse ox of 95% on 2 L patient denies chest pain. Patient denies nausea vomiting or diarrhea. Patient denies any urinary burning or frequency On 07/18/2024 patient was seen and examined on the medical floor she is alert and oriented x 3 in no apparent distress there is no fever or chills no headache or dizziness no chest pain she is still complaining of cough and shortness of breath otherwise she denies any complaints, there is no nausea or vomiting no abdominal pain no diarrhea and no urinary symptoms On 07/19/2024 patient is alert and oriented x 3. Patient is feeling slightly improved. Patient still having some shortness of breath remains on Tamiflu and IV Solu-Medrol. Current vital signs temp 98.2, heart rate 96, respiratory rate 15, blood pressure 132/80 with a pulse ox of 95% on 3 L. Patient denies chest pain. Patient denies nausea vomiting or diarrhea. Patient denies any urinary burning or frequency Objective - Vital Signs Vital signs: Vital Signs Temp 98.2 F 07/19/24 07:35 Pulse 96 07/19/24 08:55 Resp 15 07/19/24 08:55 BP 132/80 07/19/24 07:35 Pulse Ox 96 07/19/24 07:36 FiO2 Intake & Output 07/18/24 07/19/2407/19/25 18:59 06:59 18:59 Output Total 400 500 Balance -400 -500 Output: Urine 400 500 Other: Voiding Method External Catheter Toilet - Exam Head normocephalic Neck supple Lungs clear to auscultation bilaterally no wheezing or crackles Heart regular rate and rhythm S1-S2, no rub or gallop Abdomen is soft nontender nondistended positive bowel sounds no hepatosplenomegaly Extremities no edema Neuro alert and orientated to 3 - Labs CBC & Chem 7: 07/19/24 03:19 07/19/24 03:19 Labs: Abnormal Lab Results - Last 24 Hours (Table) 07/19/24 07/19/24 Range/Units 03:19 03:19 RBC 5.27 H (4.10-5.20) X 10*6/uL MCH 24.5 L (27.0-32.0) pg MCHC 30.2 L (32.0-37.0) g/dL RDW 23.9 H (11.5-14.5) % MPV 8.6 L (9.5-12.2) FL Lymphocytes # 0.61 L (0.90-5.00) X 10*3/uL Eosinophils # 0 L (0.04-0.35) X 10*3/uL Anion Gap 12.50 H (4.00-12.00) mmol/L BUN/Creatinine Ratio 35.33 H (12.00-20.00) Ratio Glucose 149 H (70-110) mg/dL Assessment and Plan Plan: Acute influenza A infection Acute non-ST elevation myocardial infarction Acute respiratory failure with hypoxia Underlying history of coronary artery disease Underlying history of permanent atrial fibrillation Underlying history of mitral valve replacement Previous history of gastrointestinal bleeding 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 Will follow closely
[2024-07-20 06:15] LABS: Glucose,Whole Blood 126 mg/dL (70-110)
[2024-07-20 08:38] LABS: Basophils # (A) 0.01 X 10*3/uL (0.00-0.10); Basophils % (A) 0.2 %; Eosinophils # (A) 0 X 10*3/uL (0.04-0.35); Eosinophils % (A) 0 %; HCT 42.8 % (37.2-46.3); HGB 13.2 g/dL (12.0-15.0); Lymphocytes # (A) 0.73 X 10*3/uL (0.90-5.00); Lymphocytes % (A) 11.2 %; MCH 24.7 pg (27.0-32.0); MCHC 30.8 g/dL (32.0-37.0); MCV 80.1 FL (80.0-97.0); Mean Platelet Volume 8.7 FL (9.5-12.2); Monocytes # (A) 0.24 X 10*3/uL (0.20-1.00); Monocytes % (A) 3.7 %; NRBC Per 100 WBC 0 X 10*3/uL (0.00-0.01); Neutrophils % (A) 84.6 %; Platelet Count 298 X 10*3/uL (140-440); RBC 5.34 X 10*6/uL (4.10-5.20); RDW 23.3 % (11.5-14.5)
[2024-07-20 08:51] LABS: Blood Urea Nitrogen 21.6 mg/dL (9.0-27.0); Carbon Dioxide 28.3 mmol/L (21.6-31.8); Chloride 98 mmol/L (96-109); Glucose 149 mg/dL (70-110); Potassium 4.1 mmol/L (3.5-5.5); Sodium 137 mmol/L (135-145)
[2024-07-20 08:52] LABS: ALT 40 U/L (8-44); AST 46 U/L (13-35); Albumin 3.8 g/dL (3.8-4.9); Albumin/Globulin Ratio 1.52 Ratio (1.60-3.17); Alkaline Phosphatase 72 U/L (41-126); Calcium 9.6 mg/dL (8.7-10.3); Globulin 2.5 g/dL (1.6-3.3); Total Bilirubin 0.4 mg/dL (0.3-1.2); Total Protein 6.3 g/dL (6.2-8.2)
[2024-07-20 12:00] LABS: Glucose,Whole Blood 208 mg/dL (70-110)
[2024-07-20 16:25] LABS: Glucose,Whole Blood 158 mg/dL (70-110)
--- NOTE | 2024-07-20 16:25 | P.PN ---
Subjective Progress Note Date: 07/20/24 Opal Howard, is an 84-year-old female who presented to [facility] emergency room with a chief complaint of cough shortness of breath and generalized weakness She was evaluated in the emergency room vital examination on presentation revealed a temperature of 97.9 pulse 91 respiration 22 blood pressure 129/53 pulse ox 94% on 4 L nasal cannula Laboratory data revealed a white blood count of 4.4 hemoglobin 11.2 platelet count 208 sodium 133 potassium 3.5 BUN 13 creatinine 0.47 troponin was elevated at 0.264 influenza A PCR was positive Testing in the emergency room revealed chest x-ray revealed no acute pulmonary process, EKG revealed atrial fibrillation with incomplete right bundle branch block Patient was admitted to medical floor for further evaluation and treatment On 07/17/2024 patient is alert and oriented x 3. Patient reports improvement with overall shortness of breath and cough. Cardiology and pulmonary services are following patient remains on Tamiflu. Current vital signs temp 97.8, heart rate 82, respiratory rate 16, blood pressure 135/60 with a pulse ox of 95% on 2 L patient denies chest pain. Patient denies nausea vomiting or diarrhea. Patient denies any urinary burning or frequency On 07/18/2024 patient was seen and examined on the medical floor she is alert and oriented x 3 in no apparent distress there is no fever or chills no headache or dizziness no chest pain she is still complaining of cough and shortness of breath otherwise she denies any complaints, there is no nausea or vomiting no abdominal pain no diarrhea and no urinary symptoms On 07/19/2024 patient is alert and oriented x 3. Patient is feeling slightly improved. Patient still having some shortness of breath remains on Tamiflu and IV Solu-Medrol. Current vital signs temp 98.2, heart rate 96, respiratory rate 15, blood pressure 132/80 with a pulse ox of 95% on 3 L. Patient denies chest pain. Patient denies nausea vomiting or diarrhea. Patient denies any urinary burning or frequency. On 07/20/2023 patient was seen and examined on the medical floor she is complaining of generalized weakness she is still complaining of shortness of breath with any activity otherwise she denies any complaints there is no fever or chills no headache or dizziness no chest pain she has occasional cough no nausea or vomiting no abdominal pain no diarrhea and no urinary symptoms. Patient is being evaluated by physical therapy, case briefer is assessing possibility of rehab transfer. Objective - Vital Signs Vital signs: Vital Signs Temp 97.8 F 07/20/24 07:23 Pulse 84 07/20/24 09:21 Resp 17 07/20/24 08:00 BP 158/75 07/20/24 07:23 Pulse Ox 93 L 07/20/24 07:23 FiO2 Intake & Output 07/19/24 07/20/24 07/20/24 18:59 06:59 18:59 Output Total 600 Balance -600 Weight 92 kg Output: Urine 600 Other: Voiding Method Toilet Toilet Toilet External Catheter External Catheter # Voids 2 2 # Bowel Movements 1 - Exam Head normocephalic Neck supple Lungs clear to auscultation bilaterally no wheezing or crackles Heart regular rate and rhythm S1-S2, no rub or gallop Abdomen is soft nontender nondistended positive bowel sounds no hepatosplenomegaly Extremities no edema Neuro alert and orientated to 3 - Labs CBC & Chem 7: 07/20/24 03:04 07/20/24 03:04 Labs: Abnormal Lab Results - Last 24 Hours (Table) 07/20/24 07/20/24 07/20/24 Range/Units 03:04 03:04 06:14 RBC 5.34 H (4.10-5.20) X 10*6/uL MCH 24.7 L (27.0-32.0) pg MCHC 30.8 L (32.0-37.0) g/dL RDW 23.3 H (11.5-14.5) % MPV 8.7 L (9.5-12.2) FL Lymphocytes # 0.73 L (0.90-5.00) X 10*3/uL Eosinophils # 0 L (0.04-0.35) X 10*3/uL BUN/Creatinine Ratio 36.00 H (12.00-20.00) Ratio Glucose 149 H (70-110) mg/dL POC Glucose (mg/dL) 126 H (70-110) mg/dL AST 46 H (13-35) U/L Albumin/Globulin Ratio 1.52 L (1.60-3.17) Ratio 07/20/24 Range/Units 11:58 RBC (4.10-5.20) X 10*6/uL MCH (27.0-32.0) pg MCHC (32.0-37.0) g/dL RDW (11.5-14.5) % MPV (9.5-12.2) FL Lymphocytes # (0.90-5.00) X 10*3/uL Eosinophils # (0.04-0.35) X 10*3/uL BUN/Creatinine Ratio (12.00-20.00) Ratio Glucose (70-110) mg/dL POC Glucose (mg/dL) 208 H (70-110) mg/dL AST (13-35) U/L Albumin/Globulin Ratio (1.60-3.17) Ratio Assessment and Plan Plan: Acute influenza A infection Acute non-ST elevation myocardial infarction Acute respiratory failure with hypoxia Underlying history of coronary artery disease Underlying history of permanent atrial fibrillation Underlying history of mitral valve replacement Previous history of gastrointestinal bleeding 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 Will follow closely
[2024-07-20 20:45] LABS: Glucose,Whole Blood 177 mg/dL (70-110)
[2024-07-21 06:06] LABS: Glucose,Whole Blood 142 mg/dL (70-110)
[2024-07-21 11:46] LABS: Glucose,Whole Blood 131 mg/dL (70-110)
[2024-07-21] MEDS: ENOXAPARIN 40 MG/0.4 ML SYRINGE SQ SCH (11:46)
[2024-07-21 14:39] VITALS: BMI 39.6
[2024-07-21 16:48] LABS: Glucose,Whole Blood 156 mg/dL (70-110)
[2024-07-21 21:23] LABS: Glucose,Whole Blood 154 mg/dL (70-110)
[2024-07-22 06:29] LABS: Glucose,Whole Blood 135 mg/dL (70-110)
[2024-07-22 07:59] VITALS: BP 157/77; RESP 18; TEMP 98.2
[2024-07-22 08:55] LABS: Basophils # (A) 0 X 10*3/uL (0.00-0.10); Basophils % (A) 0 %; Eosinophils # (A) 0 X 10*3/uL (0.04-0.35); Eosinophils % (A) 0 %; HCT 45.6 % (37.2-46.3); HGB 13.9 g/dL (12.0-15.0); Lymphocytes # (A) 0.62 X 10*3/uL (0.90-5.00); MCH 24.4 pg (27.0-32.0); MCHC 30.5 g/dL (32.0-37.0); MCV 80.1 FL (80.0-97.0); Mean Platelet Volume 8.5 FL (9.5-12.2); Monocytes # (A) 0.26 X 10*3/uL (0.20-1.00); Monocytes % (A) 3.8 %; NRBC Per 100 WBC 0 X 10*3/uL (0.00-0.01); Neutrophils % (A) 86.8 %; Platelet Count 324 X 10*3/uL (140-440); RBC 5.69 X 10*6/uL (4.10-5.20); RDW 23.3 % (11.5-14.5); WBC 6.91 X 10*3/uL (4.50-10.00)
[2024-07-22 09:16] LABS: ALT 42 U/L (8-44); AST 32 U/L (13-35); Albumin 3.7 g/dL (3.8-4.9); Albumin/Globulin Ratio 1.54 Ratio (1.60-3.17); Alkaline Phosphatase 69 U/L (41-126); BUN/Creat Ratio 37.17 Ratio (12.00-20.00); Blood Urea Nitrogen 22.3 mg/dL (9.0-27.0); Calcium 9.4 mg/dL (8.7-10.3); Carbon Dioxide 32.6 mmol/L (21.6-31.8); Chloride 97 mmol/L (96-109); Globulin 2.4 g/dL (1.6-3.3); Glucose 146 mg/dL (70-110); Potassium 4.2 mmol/L (3.5-5.5); Sodium 140 mmol/L (135-145); Total Bilirubin 0.5 mg/dL (0.3-1.2); Total Protein 6.1 g/dL (6.2-8.2)
[2024-07-22 10:10] VITALS: PULSE 82
[2024-07-22 11:21] LABS: Glucose,Whole Blood 202 mg/dL (70-110)
--- NOTE | 2024-07-22 11:23 | P.DS ---
Providers Date of admission: 07/15/24 16:07 Expected date of discharge: 07/22/24 Attending physician: Lory Ferguson Consults: 07/15/24 15:40 Consult Physician Urgent Consulting Provider: Humberto Ortiz Consult Reason/Comments: elevated troponin Do you want consulting provider notified?: Yes Primary care physician: Denisha Vale [facility] Course: discharge diagnosis Acute influenza A infection Acute non-ST elevation myocardial infarction Acute respiratory failure with hypoxia Underlying history of coronary artery disease Underlying history of permanent atrial fibrillation Underlying history of mitral valve replacement Previous history of gastrointestinal bleeding 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 Underlying history of obstructive sleep apnea maintained on CPAP Underlying history of degenerative disc disease with chronic back pain with history of back surgery Underlying history of degenerative osteoarthritis Hospital course Opal Howard, is an 84-year-old female who presented to [facility] emergency room with a chief complaint of cough shortness of breath and generalized weakness She was evaluated in the emergency room vital examination on presentation revealed a temperature of 97.9 pulse 91 respiration 22 blood pressure 129/53 pulse ox 94% on 4 L nasal cannula Laboratory data revealed a white blood count of 4.4 hemoglobin 11.2 platelet count 208 sodium 133 potassium 3.5 BUN 13 creatinine 0.47 troponin was elevated at 0.264 influenza A PCR was positive Testing in the emergency room revealed chest x-ray revealed no acute pulmonary process, EKG revealed atrial fibrillation with incomplete right bundle branch block Patient was admitted to medical floor for further evaluation and treatment On 07/17/2024 patient is alert and oriented x 3. Patient reports improvement with overall shortness of breath and cough. Cardiology and pulmonary services are following patient remains on Tamiflu. Current vital signs temp 97.8, heart rate 82, respiratory rate 16, blood pressure 135/60 with a pulse ox of 95% on 2 L patient denies chest pain. Patient denies nausea vomiting or diarrhea. Patient denies any urinary burning or frequency On 07/18/2024 patient was seen and examined on the medical floor she is alert and oriented x 3 in no apparent distress there is no fever or chills no headache or dizziness no chest pain she is still complaining of cough and shortness of breath otherwise she denies any complaints, there is no nausea or vomiting no abdominal pain no diarrhea and no urinary symptoms On 07/19/2024 patient is alert and oriented x 3. Patient is feeling slightly improved. Patient still having some shortness of breath remains on Tamiflu and IV Solu-Medrol. Current vital signs temp 98.2, heart rate 96, respiratory rate 15, blood pressure 132/80 with a pulse ox of 95% on 3 L. Patient denies chest pain. Patient denies nausea vomiting or diarrhea. Patient denies any urinary burning or frequency. On 07/20/2023 patient was seen and examined on the medical floor she is complaining of generalized weakness she is still complaining of shortness of breath with any activity otherwise she denies any complaints there is no fever or chills no headache or dizziness no chest pain she has occasional cough no nausea or vomiting no abdominal pain no diarrhea and no urinary symptoms. Patient is being evaluated by physical therapy, case management director is assessing possibility of rehab transfer. on 07/22/2024patient is alert and oriented 3. Patient reports improvement with shortness of breath. Patient denies chest pain. Patient denies any nausea vomiting or diarrhea. Patient denies any urinary burning or frequency. Current vital signs temp 98.2, heart rate 84, respiratory rate 18, blood pressure 117/77 with pulse ox of 93% on room air. Patient will be DC'd home and follow-up PCP for further management Patient Condition at Discharge: Stable Plan - Discharge Summary Discharge Rx Participant: Yes New Discharge Prescriptions: New predniSONE 10 mg PO DIRECTED 12 Days #30 tab Continue Potassium Chloride [Klor-Con 20] 40 meq PO DAILY Lansoprazole 30 mg PO DAILY Multivitamins, Thera [Multivitamin (formulary)] 1 tab PO DAILY Aspirin [Adult Low Dose Aspirin EC] 81 mg PO DAILY Ascorbic Acid [Vitamin C] 500 mg PO DAILY tab Magnesium Oxide 400 mg PO DAILY Fluticasone Propionate 44 Mcg [Flovent 44 Mcg Inhaler] 1 puff INHALATION RT- BID Furosemide [Lasix] 40 mg PO DAILY Metoprolol Succinate (ER) [Toprol XL] 50 mg PO DAILY Biotin [Biotin Disolve] 10,000 mcg PO DAILY Melatonin 5 mg PO HS Cholecalciferol [Vitamin D3 (25 Mcg = 1000 Iu)] 25 mcg PO DAILY Discharge Medication List Lansoprazole 30 mg PO DAILY 11/30/15 [History] Potassium Chloride [Klor-Con 20] 40 meq PO DAILY 11/30/15 [History] Aspirin [Adult Low Dose Aspirin EC] 81 mg PO DAILY 05/10/20 [History] Multivitamins, Thera [Multivitamin (formulary)] 1 tab PO DAILY 05/10/20 [History] Ascorbic Acid [Vitamin C] 500 mg PO DAILY tab 05/17/20 [Rx] Biotin [Biotin Disolve] 10,000 mcg PO DAILY 09/11/20 [History] Magnesium Oxide 400 mg PO DAILY 09/11/20 [History] Melatonin 5 mg PO HS 09/11/20 [History] Cholecalciferol [Vitamin D3 (25 Mcg = 1000 Iu)] 25 mcg PO DAILY 07/15/24 [History] Fluticasone Propionate 44 Mcg [Flovent 44 Mcg Inhaler] 1 puff INHALATION RT-BID 07/15/24 [History] Furosemide [Lasix] 40 mg PO DAILY 07/15/24 [History] Metoprolol Succinate (ER) [Toprol XL] 50 mg PO DAILY 07/15/24 [History] predniSONE 10 mg PO DIRECTED 12 Days #30 tab 07/22/24 [Rx] Follow up Appointment(s)/Referral(s): Denisha Vale MD [Primary Care Provider] - 1-2 days Residential Home[facility] [NON-STAFF] - As Needed Discharge Disposition: HOME SELF-CARE
--- NOTE | 2024-07-25 08:46 | CDI ---
Documentation Clarification Form Date: 07/25/2024 08:19:00 AM From: Tamie Briceno RN, CCDS Phone: [phone] Admit Date: 07/15/2024 04:07:00 PM Patient Name: Opal Howard Visit Number: [id number] Discharge Date: 07/22/2024 12:06:00 PM ATTENTION: The Clinical Documentation Specialists (CDI) and [facility] Coding Staff appreciate your assistance in clarifying documentation. Please respond to the clarification below the line at the bottom and electronically sign. The CDI & [facility] Coding staff will review the response and follow-up if needed. Please note: Queries are made part of the Legal Health Record. If you have any questions, please contact the author of this message via ITS. DoctorBaltazar Ortiz There is documentation of evidence of myocardial injury with no evidence of ischemia clinically or by EKG. Additional clarification is requested. History/Risk Factors: Fibrillation, Hypertension, Valvular heart disease (mitral valve repair ) Clinical Indicators: 84-year-old female presents to ED for cough, malaise and shortness of breath for last 3 days. She wears CPAP. 07/15/ 129/53 91 22 94%, 88% RA; Influenza A -Detected Troponin I 0.264, 0.196, 0.162 ECHO: Normal LV systolic function. Estimated at 50-55% Bioprosthetic mitral valve with somewhat elevated mean gradient across the valve. Mild pulmonary hypertension Treatment: ASA 325 PO Daily, Toprol Xl 50MG PO Daily Lasix 40 MG PO Daily, Solu-Medrol 60 MG IV (titrate) Tamiflu PO Q 12 HRS Can you please further clarify Myocardial Injury? [x ] Type II CO due to acute respiratory failure from influenza A [ ] Other, please specify [ ] Unable to determine (Template Last Revised: August 2020) MTDD
== END 2024-07-22 12:06 | disposition home or self-care (01) | DRG 193 ==
LOC: EC 12:49 → 3SCARD 16:07 → 4SSUR 07-16 15:54
PROVIDERS: ADMIT Internal Medicine; ATTEND Internal Medicine
DX: J10.1 Influenza due to other identified influenza virus with other respiratory manifestations (principal); I21.A1 Myocardial infarction type 2; J96.01 Acute respiratory failure with hypoxia; I48.21 Permanent atrial fibrillation; Z95.2 Presence of prosthetic heart valve; I10 Essential (primary) hypertension; I45.10 Unspecified right bundle-branch block; I25.10 Atherosclerotic heart disease of native coronary artery without angina pectoris; M19.90 Unspecified osteoarthritis, unspecified site; G89.29 Other chronic pain; Z79.82 Long term (current) use of aspirin; Z79.899 Other long term (current) drug therapy; Z87.891 Personal history of nicotine dependence; Z96.653 Presence of artificial knee joint, bilateral; Z87.19 Personal history of other diseases of the digestive system; G47.33 Obstructive sleep apnea (adult) (pediatric); Z86.69 Personal history of other diseases of the nervous system and sense organs; Z20.822 Contact with and (suspected) exposure to COVID-19; L44.0 Pityriasis rubra pilaris; I49.3 Ventricular premature depolarization; Z88.0 Allergy status to penicillin; Z88.2 Allergy status to sulfonamides; Z88.8 Allergy status to other drugs, medicaments and biological substances
CPT/HCPCS: 36415; 71046; 80053; 80061; 83605; 83735; 83880; 84484; 85025; 85610; 85730; 87636; 87651; 93005; 93306; 94640; 94760; 96374; 99285